=== PATIENT | male | born 1935 | race Caucasian/White ===

== ENCOUNTER 2020-10-25 14:46 | Emergency (ER) | payer OTHER ==
[2020-10-25] MEDS ORDERED: NA CHLORIDE 0.9% 500 ML ONE (16:00)
[2020-10-25 16:12] LABS: Absolute Lymphocytes (CBC) 1.6 K/uL (0.7-4.9); Basophils % 0.6 % (0-1.3); Hematocrit 37.8 % (39.6-49.0); Lymphocytes % 17.2 % (15.3-44.8); MPV 9.2 fL (7.6-11.3); RBC Red Blood Cell Count 4.39 M/uL (4.33-5.43)
[2020-10-25 16:21] LABS: Protime INR 1.03
--- NOTE | 2020-10-25 16:26 | RAD REPORT ---
EXAM DESCRIPTION: CTAbdomen Pelvis W Contrast - 10/25/2020 4:17 pm CLINICAL HISTORY: Abdominal pain. rectal bleeding COMPARISON: Thorax Wo Con dated 03/19/2020 TECHNIQUE: Biphasic CT imaging of the abdomen and pelvis was performed with 100 ml non-ionic IV cont rast. All CT scans are performed using dose optimization technique as appropriate and may include automated exposure control or mA/KV adjustment according to patient size. FINDINGS: The lung bases are clear. The liver demonstrates a few small low-density lesions, large measuring 12 mm in the left lobe, most likely representing cysts. No intra or extrahepatic biliary tree dilatation. Cholecystectomy clips. T he spleen, pancreas, adrenal glands kidneys are within normal limits. No bowel obstruction, free air, free fluid or abscess. There is prominent retention of stool througho ut the colon seen with numerous diverticula present. There is noted to be somewhat irregular thickeni ng of the ascending colon near the cecum we are multiple pericolonic lymph nodes are evident. The concetta endix is normal. Prominent sigmoid diverticulosis without diverticulitis. No evidence of significant lymphadenopathy. Moderate enlargement of the prostate gland. No suspicious bony findings. IMPRESSION: Focal short-segment area of thickening of the ascending colon near the cecum is seen wit h several surrounding pericolonic lymph nodes. Recommend followup colonoscopy for direct visualizatio n. Elsewhere, there is no evidence of acute intra-abdominal or pelvic process.
[2020-10-25 16:34] LABS: Albumin 3.5 g/dL (3.4-5.0); Bilirubin Direct 0.1 mg/dL (0-0.2); Bilirubin Total 0.5 mg/dL (0.2-1.0); Potassium 4.1 mmol/L (3.5-5.1)
--- NOTE | 2020-10-25 17:51 | EDPHYS ---
Physician Documentation [facility] Name: Carlton Nuñez III Age: 85 yrs Sex: Male : 1935 Arrival Date: 10/25/2020 Time: 14:50 Bed 5 Private MD: ED Physician Shad Shah HPI: 10/25 15:36 This 85 yrs old Male presents to ER via Ambulatory with complaints of Bloody pm1 Stools. 19:18 The patient presents to the emergency department with rectal bleeding, a small amount, pm1 bright red blood with bowel movement, on toilet paper with wiping and some in toilet water. Onset: The symptoms/episode began/occurred this morning. Abdominal pain: none is appreciated. Modifying factors: the symptoms are aggravated by bowel movement. Associated signs and symptoms: The patient has no apparent associated signs or symptoms, Pertinent negatives: chest pain, diarrhea, dizziness at rest, dizziness when standing, shortness of breath, vomiting. The patient has experienced similar episodes in the past, multiple times, Patient reports that he occasionally has bright red blood on toilet paper and bowel movement that resolves by the second bowel movement. Today he had two bowel movements with bright red blood on the toilet paper and some in the toilet water. He has a history of hemorrhoids. The patient has not recently seen a physician. Historical: - Allergies: 14:56 No Known Allergies; ll1 - PMHx: 14:56 enlarged prostate; ll1 - PSHx: 14:56 L upper lung lobectomy; ll1 - Immunization history:: Flu vaccine is up to date. - Social history:: Smoking status: Patient/guardian denies using tobacco, the patient reports quitting approximately 45 years ago. ROS: 19:22 Constitutional: Negative for fever, chills, and weight loss, Cardiovascular: Negative pm1 for chest pain, palpitations, and edema, Respiratory: Negative for shortness of breath, cough, wheezing, and pleuritic chest pain. 19:22 Back: Negative for injury and pain, : Negative for injury, bleeding, discharge, and swelling, MS/Extremity: Negative for injury and deformity, Skin: Negative for injury, rash, and discoloration, Neuro: Negative for headache, weakness, numbness, tingling, and seizure. 19:22 Abdomen/GI: Positive for rectal bleeding, Negative for abdominal pain, nausea, vomiting, and diarrhea, constipation, rectal pain. Exam: 19:22 Constitutional: This is a well developed, well nourished patient who is awake, alert, pm1 and in no acute distress. Head/Face: Normocephalic, atraumatic. 19:22 Back: No spinal tenderness. No costovertebral tenderness. Full range of motion. Skin: Warm, dry with normal turgor. Normal color with no rashes, no lesions, and no evidence of cellulitis. MS/ Extremity: Pulses equal, no cyanosis. Neurovascular intact. Full, normal range of motion. 19:22 Cardiovascular: Exam negative for acute changes, Rate: normal, Rhythm: regular, Pulses: no pulse deficits are appreciated, Edema: is not appreciated. 19:22 Respiratory: Exam negative for acute changes, respiratory distress, shortness of breath. 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 19:22 Neuro: Exam negative for acute changes, Orientation: is normal, Mentation: is normal, Motor: is normal, moves all fours. Vital Signs: 14:56 BP 164 / 96; Pulse 91; Resp 17; Temp 98.8; Pulse Ox 100% ; Weight 80.74 kg; Height 6 ll1 ft. 0 in. (182.88 cm); Pain 0/10; 16:01 BP 131 / 95; Pulse 81; Resp 16; Pulse Ox 99% on R/A; sv 16:43 BP 138 / 92; Pulse 73; Resp 16; Pulse Ox 98% on R/A; sv 17:25 BP 139 / 98; Pulse 74; Resp 16; Pulse Ox 100% ; sv 14:56 Body Mass Index 24.14 (80.74 kg, 182.88 cm) ll1 MDM: 15:00 Patient medically screened. pm1 17:34 Data reviewed: vital signs. Data interpreted: Pulse oximetry: on room air is 100 %. pm1 Interpretation: normal. 17:34 Counseling: I had a detailed discussion with the patient and/or guardian regarding: the pm1 historical points, exam findings, and any diagnostic results supporting the discharge/admit diagnosis, lab results, radiology results, the need for outpatient follow up, a porter bath, colorectal surgeon, . 17:34 ED course: Patient reports baseline Hgb and Hct and the that findings on CT at the pm1 cecum are expected. CT findings were first found on a CT about 5 years ago and he has seen GI and oncology. He has had 3 colonoscopies. According to the patient, GI - Dr. Greer, did not see any changes to the colon and did not feel that it is necessary to due any further colonoscopies unless oncology wanted to look at another area. Patient agrees with assessment and plan. Plan is to follow up with GI and blood with wiping and on his stool was likely due to hemorrhoids. Patient has had bleeding like this in the past that resolved with the next bowel movment. He presented today because there was still some blood present with the next BM. Percy treated his hemorrhoids in the past. 10/25 15:35 Order name: Basic Metabolic Panel pm1 10/25 15:35 Order name: CBC with Diff pm1 10/25 15:35 Order name: Hepatic Function pm10/25 15:35 Order name: Lipase pm1 10/25 15:35 Order name: PT-INR pm1 10/25 15:35 Order name: Ptt, Activated; Complete Time: 16:26 pm1 10/25 15:35 Order name: CT Abd/Pelvis - IV Contrast Only; Complete Time: 16:32 pm1 10/25 15:36 Order name: Basic Metabolic Panel; Complete Time: 16:39 EDMS 10/25 15:36 Order name: CBC with Automated Diff; Complete Time: 16:21 EDMS 10/25 15:36 Order name: Liver (Hepatic) Function; Complete Time: 16:39 EDMS 10/25 15:36 Order name: Lipase; Complete Time: 16:39 EDMS 10/25 15:36 Order name: Protime (+INR); Complete Time: 16:26 EDMS 10/25 16:10 Order name: CREATININE WHOLE BLOOD; Complete Time: 16:21 EDMS 10/25 15:35 Order name: IV Saline Lock; Complete Time: 15:57 pm1 10/25 15:35 Order name: Labs collected and sent; Complete Time: 15:57 pm1 Administered Medications: 16:00 Drug: NS 0.9% 500 ml Route: IV; Rate: bolus; Site: right forearm; sv 16:30 Follow up: Response: No adverse reaction; IV Status: Completed infusion; IV Intake: sv 500ml Disposition: 10/26 14:39 Co-signature as Attending Physician, Shad Shah MD I agree with the assessment and jazmin plan of care. Disposition: 10/25/20 17:50 Discharged to Home. Impression: Hemorrhoids, Rectal bleeding. - Condition is Stable. - Discharge Instructions: Hemorrhoids, Rectal Bleeding. - Prescriptions for Colace 100 mg Oral Tablet - take 1 tablet by ORAL route every 12 hours; 14 tablet. Anusol- HC 2.5 % Rectal Cream - Apply to affected area 1 application by TOPICAL route every 8 hours As needed; 30 gram. - Medication Reconciliation Form, Thank You Letter, Antibiotic Education, Prescription Opioid Use, Work release form form. - Follow up: Emergency Department; When: As needed; Reason: Worsening of condition. Follow up: Private Physician; When: 2 - 3 days; Reason: Recheck today's complaints, Continuance of care, Re-evaluation by your physician. - Problem is new. - Symptoms have improved. Signatures: Dispatcher [employer] Lindsey Jaimes RN RN sv Anderson, Corey, MD MD cha Marinas, Patrick, PANEL MONITOR PANEL MONITOR pm1 Katelyn Garza RN RN ll1 Corrections: (The following items were deleted from the chart) 10/25 17:51 17:50 10/25/2020 17:50 Discharged to Home. Impression: Hemorrhoids. Condition is pm1 Stable. Forms are Medication Reconciliation Form, Thank You Letter, Antibiotic Education, Prescription Opioid Use. Follow up: Emergency Department; When: As needed; Reason: Worsening of condition. Follow up: Private Physician; When: 2 - 3 days; Reason: Recheck today's complaints, Continuance of care, Re-evaluation by your physician. Problem is new. Symptoms have improved. pm1 17:59 17:51 10/25/2020 17:50 Discharged to Home. Impression: Hemorrhoids; Rectal bleeding. sv Condition is Stable. Forms are Medication Reconciliation Form, Thank You Letter, Antibiotic Education, Prescription Opioid Use. Follow up: Emergency Department; When: As needed; Reason: Worsening of condition. Follow up: Private Physician; When: 2 - 3 days; Reason: Recheck today's complaints, Continuance of care, Re-evaluation by your physician. Problem is new. Symptoms have improved. pm1
--- NOTE | 2020-10-25 17:51 | ER ---
Nurse's Notes [facility] Name: Carlton Nuñez III Age: 85 yrs Sex: Male : 1935 Arrival Date: 10/25/2020 Time: 14:50 Bed 5 Private MD: Diagnosis: Hemorrhoids;Rectal bleeding Presentation: 10/25 14:56 Chief complaint: Patient states: Bright red blood in stool this am x 2. + passing gas. ll1 No pain, no fever. Coronavirus screen: Client denies travel out of the [place] in the last 14 days. At this time, the client does not indicate any symptoms associated with coronavirus-19. Ebola Screen: Patient denies travel to an Ebola-affected area in the 21 days before illness onset. Initial Sepsis Screen: Does the patient meet any 2 criteria? HR > 90 bpm. No. Patient's initial sepsis screen is negative. Does the patient have a suspected source of infection? Yes: Other: bloody stool. Risk Assessment: Do you want to hurt yourself or someone else? Patient reports no desire to harm self or others. Onset of symptoms was October 25, 2020. 14:56 Method Of Arrival: Ambulatory ll1 14:56 Acuity: ATUL 3 ll1 Historical: - Allergies: 14:56 No Known Allergies; ll1 - PMHx: 14:56 enlarged prostate; ll1 - PSHx: 14:56 L upper lung lobectomy; ll1 - Immunization history:: Flu vaccine is up to date. - Social history:: Smoking status: Patient/guardian denies using tobacco, the patient reports quitting approximately 45 years ago. Screenin:00 Abuse screen: Denies threats or abuse. Denies injuries from another. Nutritional sv screening: No deficits noted. Tuberculosis screening: No symptoms or risk factors identified. Fall Risk None identified. Assessment: 15:55 General: Appears in no apparent distress. comfortable, well developed, Behavior is sv calm, cooperative, appropriate for age. Pain: Denies pain. Neuro: Level of Consciousness is awake, alert, obeys commands, Oriented to person, place, time, situation, Moves all extremities. Full function Gait is steady. Respiratory: Respiratory effort is even, unlabored, Respiratory pattern is regular, symmetrical. GI: Reports bloody stool. Derm: Skin is intact, Skin is pink, warm \T\ dry. 16:44 Reassessment: Patient appears in no apparent distress at this time. No changes from sv previously documented assessment. Patient and/or family updated on plan of care and expected duration. Pain level reassessed. Patient is alert, oriented x 3, equal unlabored respirations, skin warm/dry/pink. 17:58 Reassessment: Patient appears in no apparent distress at this time. Patient and/or sv family updated on plan of care and expected duration. Pain level reassessed. Patient is alert, oriented x 3, equal unlabored respirations, skin warm/dry/pink. Vital Signs: 14:56 BP 164 / 96; Pulse 91; Resp 17; Temp 98.8; Pulse Ox 100% ; Weight 80.74 kg; Height 6 ll1 ft. 0 in. (182.88 cm); Pain 0/10; 16:01 BP 131 / 95; Pulse 81; Resp 16; Pulse Ox 99% on R/A; sv 16:43 BP 138 / 92; Pulse 73; Resp 16; Pulse Ox 98% on R/A; sv 17:25 BP 139 / 98; Pulse 74; Resp 16; Pulse Ox 100% ; sv 14:56 Body Mass Index 24.14 (80.74 kg, 182.88 cm) ll1 ED Course: 14:50 Patient arrived in ED. ds1 14:54 Arm band placed on Patient placed in an exam room, on a stretcher. ll1 14:57 Triage completed. ll1 14:59 Lindsey Quispe RN is Primary Nurse. sv 14:59 Matthew Roche NP is PHCP. pm1 14:59 Shad Shah MD is Attending Physician. pm1 15:00 Patient has correct armband on for positive identification. Bed in low position. Call sv light in reach. Door closed. Head of bed elevated. 15:32 Nurse Practitioner and/or Physician Associate Professor Of Violin to see patient. 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 sv 15:49 Initial lab(s) drawn, by me, sent to lab. Inserted saline lock: 20 gauge in right dh3 forearm, using aseptic technique. Blood collected. 16:01 PT-INR Sent. sv 16:01 Basic Metabolic Panel Sent. sv 16:01 CBC with Diff Sent. sv 16:01 Hepatic Function Sent. sv 16:01 Lipase Sent. sv 16:16 CT Abd/Pelvis - IV Contrast Only In Process Unspecified. EDMS 17:58 IV discontinued, intact, bleeding controlled, No redness/swelling at site. Pressure sv dressing applied. Administered Medications: 16:00 Drug: NS 0.9% 500 ml Route: IV; Rate: bolus; Site: right forearm; sv 16:30 Follow up: Response: No adverse reaction; IV Status: Completed infusion; IV Intake: sv 500ml Intake: 16:30 IV: 500ml; Total: 500ml. sv Outcome: 17:50 Discharge ordered by MD. pm1 17:58 Discharged to home ambulatory. sv 17:58 Condition: stable 17:58 Discharge instructions given to patient, Instructed on discharge instructions, follow up and referral plans. medication usage, Demonstrated understanding of instructions, follow-up care, medications, Prescriptions given X 2. 17:59 Patient left the ED. sv Signatures: Dispatcher [employer] EDMS Lindsey Quispe RN RN Sheila Lokchart ds1 Matthew Roche, MASTER PIPE OUT WORKER pm1 Dotty Lin 3 Katelyn Garza RN RN ll1
[2020-10-25 18:07] VITALS: TEMP 98.8
[2020-10-25 18:11] VITALS: BP 139/98; O2SAT 100
== END 2020-10-25 17:59 | disposition home or self-care (01) ==
LOC: ER 14:46
DX: K64.9 Unspecified hemorrhoids (principal); N40.0 Benign prostatic hyperplasia without lower urinary tract symptoms
CPT/HCPCS: 85025; 80048; 36415; 85610; 82565; 80076; 85730; 83690; 74177; 99284; Q9967; J7040

== ENCOUNTER 2021-08-31 09:35 | Emergency (ER) | payer OTHER ==
--- OUTSIDE RECORDS SUMMARY | 2021-08-31 09:39 | XMS REPORT | Clinical Summary ---
:1935 Author Organization [facility] MD [facility] Address [address] [place] [address] Care Team Providers Name Role Phone Emre Solomon MD Primary Care Provider Kenny Greer MD Unavailable Ming Greer MD Unavailable Naty Little MD Unavailable MD Juanito Unavailable Coy Patel NP Unavailable Allergies No known active allergies Medications Medication Sig Dispensed Refills Start Date End Date Status CYANOCOBALAMIN/FOLIC Take 1 tablet by 0 Active ACID (VITAMIN mouth daily. [id number] ACID ORAL) multivitamin capsule Take 1 capsule by 0 Active mouth daily. ascorbic acid, Take 1,000 mg/mL by 0 Active vitamin C, (vitamin mouth daily. C) 1000 mg tablet [id number] Take 1 capsule by 0 Active h oil-D3 (VITAMIN-D mouth daily. + OMEGA-3) 350 mg-400 mg- 1,000 unit cap tamsulosin (FLOMAX) Take 1 capsule by 3 11/08/2016 Active 0.4 mg 24 hr capsule mouth daily. finasteride Take 5 mg by mouth 0 Active (PROSCAR) 5 mg daily. tablet cholecalciferol, 0 09/12/2014 Ac tive vitamin D3, (D3-2000 ORAL) prednisoLONE acetate INSTILL 1 DROP IN 0 03/12/2020 Active (PRED FORTE) 1% LEFT EYE TWICE A DAY ophthalmic FOR ONE WEEK, THEN suspension DAILY FOR 1 WEEK folic acid (FOLVITE) Take 1 mg by mouth 0 Active 1 mg tablet daily. turmeric (CURCUMIN by miscellaneous 0 Active MISC) route daily. 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 His radiographic imaging demonstrates st able bilateral lung nodules and nodular opacities. A LLL groundglass nodule is also stable and too small for biopsy. We will continue [facility] with a follow-up in 1 year's time with a low-dose CT of the chest. 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 He is very low risk for significant disease change with his indolent histology and no evidence radiographically on any prior scans of lymphoma . Recommend he have another chest abdome n pelvis CT in 12 months. Encounters Date Type Specialty Care Team Description 04/06/2021 Office Visit Lymphoma and Emre Solomon Marginal zone Myeloma lymphoma (Prima ry Dx) 04/06/2021 Hospital Encounter Lab José Novak Margin al zone PA lymphoma 04/06/2021 Travel 03/31/2021 Orders Only Lymphoma and José Novak Marginal zon e Myeloma PA lymphoma (Prima ry Dx) 03/19/2021 Telemedicine Lymphoma and Emre Solomon Marginal zone Myeloma lymphoma 03/18/2021 Hospital Encounter Radiology José Novak Margin al zone PA lymphoma 03/18/2021 Hospital Encounter Lab José Novak Margin al zone lymphoma; PA Adenocarcinoma of upper lobe of left lung 03/18/2021 Travel 03/13/2021 Orders Only Thoracic Medicine Novegil, Adenocarci noma of Ashly Y upper lobe of l eft lung (Primary D x) 01/08/2021 Telemedicine Lymphoma and Emre Solomon Marginal zone Myeloma lymphoma 01/06/2021 Orders Only Lymphoma and [place], Malori, Marginal zon e Myeloma RN lymphoma (Prima ry Dx) 12/25/2020 Lab Requisition Ian Gamez MD Hao, Suyang, MD 12/23/2020 Telemedicine Thoracic Surgery Jose Fuchs MD Adenocar cinoma of upper lobe of l eft lung (Primary D x) 12/20/2020 Hospital Encounter Radiology Leatha Bustamante, Adenoca rcinoma of PA upper lobe of l eft lung 12/20/2020 Travel 12/15/2020 Orders Only Lymphoma and José Novak, Marginal zon e Myeloma PA lymphoma (Prima ry Dx) 11/25/2020 Ancillary Procedure Radiology José Novak Margi nal zone PA lymphoma 11/25/2020 Orders Only Lymphoma and [place], Malori, Marginal zon e Myeloma RN lymphoma (Prima ry Dx) 11/19/2020 Orders Only Infectious [place], SARS-CoV-2 Diseases MD Elida vaccination 11/12/2020 Orders Only Thoracic Surgery Leatha Bustamante, Adenocarc inoma of PA upper lobe of l eft lung (Primary D x) after 08/31/2020 Immunizations Name Administration Dates Next Due Moderna SARS-CoV-2 Vaccination 10/19/2020, 09/21/2020 Medical History Medical History Date Comments Cancer Social History Tobacco Use Types Packs/Day Years Used Date Former Smoker Smokeless Tobacco: Never Used Alcohol Use Standard Drinks/Week Comments No 0 (1 standard drink = 0.6 oz pure alcoho l) Sex Assigned at Date Recorded Male 10/29/2019 5:00 PM [facility] Obstetrics History Last Filed Vital Signs Vital Sign Reading Time Taken Comments Blood Pressure 146/90 04/06/2021 11:59 AM CDT Pulse 74 04/06/2021 11:59 AM CDT Temperature 36.7 C (98.1 F) 04/06/2021 11:59 AM CDT Respiratory Rate 16 04/06/2021 11:59 AM CDT Oxygen Saturation 98% 04/06/2021 11:59 AM CDT Inhaled Oxygen Concentration - - Weight 80.2 kg (176 lb 12.9 oz) 04/06/2021 11:59 AM CDT Height - - Body Mass Index 25.17 12/02/2016 9:48 AM CDT Plan of Treatment Date Type Specialty Care Team Description 12/11/2021 Appointment Radiology Leatha Bustamante P A [address] [place], [place] [address] (Wo rk) 12/11/2021 Office Visit Thoracic Surgery Leatha Bustamante PA [address] [place], [place] [address] (Wo rk) Health Maintenance Due Date Last Done Comments COVID-19 Vaccination (3 - Moderna risk 11/16/2020 1, 09/21/2020 4-dose series) Implants Implanted Type Area Network Technology Instructor Device Shelf Model / Identifier Expiration Serial / Date Lot Tube Chest Straight 28fr - [id number] Implant Left: [employer] 10/05/2019 [id number] / Implanted: Qty: 1 on 12/20/2016 by Jose Fuchs MD at [facility] Chest [facility] / [id number] Procedures Procedure Name Priority Date/Time Associated Diagnosis Comme nts .GLOMERULAR FILTRATION Routine 04/06/2021 10:41 Marginal zone Results for this RATE AM CDT lymphoma procedure are i n the results section. SERUM CREATININE Routine 04/06/2021 10:41 Marginal zone Result s for this AM CDT lymphoma procedure are i n the results section. MANUAL DIFFERENTIAL Routine 04/06/2021 10:41 Marginal zone Res ults for this AM CDT lymphoma procedure are i n the results section. Results CBC Routine 04/06/2021 10:41 Marginal zone Results fo r this AM CDT lymphoma procedure are i n the results section. ELECTROLYTE PANEL Routine 04/06/2021 10:41 Marginal zone Resul ts for this AM CDT lymphoma procedure are i n the results section. ASPARTATE Routine 04/06/2021 10:41 Marginal zone Results fo r this AMINOTRANSFERASE AM CDT lymphoma procedure a re in the results section. MAGNESIUM LEVEL Routine 04/06/2021 10:41 Marginal zone Results for this AM CDT lymphoma procedure are i n the results section. ALANINE Routine 04/06/2021 10:41 Marginal zone Results fo r this AMINOTRANSFERASE AM CDT lymphoma procedure a re in the results section. LACTATE DEHYDROGENASE Routine 04/06/2021 10:41 Marginal zone R esults for this AM CDT lymphoma procedure are i n the results section. ALKALINE PHOSPHATASE Routine 04/06/2021 10:41 Marginal zone Re sults for this AM CDT lymphoma procedure are i n the results section. FRACTIONATED BILIRUBIN Routine 04/06/2021 10:41 Marginal zone Results for this AM CDT lymphoma procedure are i n the results section. URIC ACID Routine 04/06/2021 10:41 Marginal zone Results fo r this AM CDT lymphoma procedure are i n the results section. SERUM CREATININE Routine 04/06/2021 10:41 Marginal zone AM CDT lymphoma BLOOD UREA NITROGEN Routine 04/06/2021 10:41 Marginal zone Res ults for this AM CDT lymphoma procedure are i n the results section. GLUCOSE, RANDOM Routine 04/06/2021 10:41 Marginal zone Results for this AM CDT lymphoma procedure are i n the results section. PHOSPHORUS LEVEL Routine 04/06/2021 10:41 Marginal zone Result s for this AM CDT lymphoma procedure are i n the results section. CALCIUM LEVEL TOTAL Routine 04/06/2021 10:41 Marginal zone Res ults for this AM CDT lymphoma procedure are i n the results section. ALBUMIN LEVEL Routine 04/06/2021 10:41 Marginal zone Results f or this AM CDT lymphoma procedure are i n the results section. TOTAL PROTEIN Routine 04/06/2021 10:41 Marginal zone Results f or this AM CDT lymphoma procedure are i n the results section. COMPLETE BLOOD COUNT W/ Routine 04/06/2021 10:41 Marginal zone DIFFERENTIAL AM CDT lymphoma CT CHEST ABDOMEN PELVIS Routine 03/18/2021 8:12 Marginal zone Results for this W CONTRAST LYMPHOMA AM CDT lymphoma procedur e are in the results section. CT NECK W CONTRAST Routine 03/18/2021 8:12 Marginal zone Resu lts for this LYMPHOMA AM CDT lymphoma procedure are i n the results section. .GLOMERULAR FILTRATION Routine 03/18/2021 6:41 Marginal zone Results for this RATE AM CDT lymphoma procedure are i n the results section. SERUM CREATININE Routine 03/18/2021 6:41 Marginal zone Result s for this AM CDT lymphoma procedure are i n the results section. MANUAL DIFFERENTIAL Routine 03/18/2021 6:41 Marginal zone Res ults for this AM CDT lymphoma procedure are i n the results section. Results CBC Routine 03/18/2021 6:41 Marginal zone Results fo r this AM CDT lymphoma procedure are i n the results section. RESEARCH PROTOCOL Routine 03/18/2021 6:41 Adenocarcinoma of R esults for this [id number] AM CDT upper lobe of left procedure are in lung the results section. ELECTROLYTE PANEL Routine 03/18/2021 6:41 Marginal zone Resul ts for this AM CDT lymphoma procedure are i n the results section. ASPARTATE Routine 03/18/2021 6:41 Marginal zone Results fo r this AMINOTRANSFERASE AM CDT lymphoma procedure a re in the results section. MAGNESIUM LEVEL Routine 03/18/2021 6:41 Marginal zone Results for this AM CDT lymphoma procedure are i n the results section. ALANINE Routine 03/18/2021 6:41 Marginal zone Results fo r this AMINOTRANSFERASE AM CDT lymphoma procedure a re in the results section. LACTATE DEHYDROGENASE Routine 03/18/2021 6:41 Marginal zone R esults for this AM CDT lymphoma procedure are i n the results section. ALKALINE PHOSPHATASE Routine 03/18/2021 6:41 Marginal zone Re sults for this AM CDT lymphoma procedure are i n the results section. FRACTIONATED BILIRUBIN Routine 03/18/2021 6:41 Marginal zone Results for this AM CDT lymphoma procedure are i n the results section. URIC ACID Routine 03/18/2021 6:41 Marginal zone Results fo r this AM CDT lymphoma procedure are i n the results section. SERUM CREATININE Routine 03/18/2021 6:41 Marginal zone AM CDT lymphoma BLOOD UREA NITROGEN Routine 03/18/2021 6:41 Marginal zone Res ults for this AM CDT lymphoma procedure are i n the results section. GLUCOSE, RANDOM Routine 03/18/2021 6:41 Marginal zone Results for this AM CDT lymphoma procedure are i n the results section. PHOSPHORUS LEVEL Routine 03/18/2021 6:41 Marginal zone Result s for this AM CDT lymphoma procedure are i n the results section. CALCIUM LEVEL TOTAL Routine 03/18/2021 6:41 Marginal zone Res ults for this AM CDT lymphoma procedure are i n the results section. ALBUMIN LEVEL Routine 03/18/2021 6:41 Marginal zone Results f or this AM CDT lymphoma procedure are i n the results section. TOTAL PROTEIN Routine 03/18/2021 6:41 Marginal zone Results f or this AM CDT lymphoma procedure are i n the results section. COMPLETE BLOOD COUNT W/ Routine 03/18/2021 6:41 Marginal zone DIFFERENTIAL AM CDT lymphoma CT CHEST WO CONTRAST Routine 12/20/2020 11:50 Adenocarcinoma o f Results for this AM CDT upper lobe of left procedure are in lung the results section. PATHOLOGY OUTSIDE Routine 11/17/2020 Results fo r this INTERPRETATION procedure are in the results section. OSI CT ABDOMEN AND Routine 10/25/2020 7:24 Marginal zone Resu lts for this PELVIS AM [facility] lymphoma procedure are i n the results section. after 08/31/2020 Results Glucose, Random (04/06/2021 10:41 AM CDT)Only the most recent of2 resultswithin the time period is included. Glucose Random 73 70 - 199 [facility] Comment: mg/dL DIAGNOSTIC CENTER Effective 04/07/16, the gluco se reference intervals have been updated based on [place] Diabetes [employer] guidelines (Standards of Medical Care in Diabetes 2016. Diabetes Care 2016; 39: S13-S22). Fasting blood glucose: Normal: 70-99 mg/dL Impaired fasting glucose (in creased risk for diabetes or pre-diabetes): 100- 125 mg/dL Diabetes mellitus: >/=126 mg/dL Random blood glucose: Normal: 70-199 mg/dL Note: Random glucose >100 mg/dL is assoc iated with increased risk for diabetes Specimen Blood Performing Organization Address City/[facility] Code Phon e Number [facility] DIAGNOSTIC Unless otherwise noted, [address] all lab tests performed by: Division of Pathology and Laboratory Medicine [address] [place] [address] .Serum Creatinine (04/06/2021 10:41 AM CDT)Only the most recent of2 results within the time period is included. Pathologist Sig nature Creatinine 1.01 0.67 - 1.17 mg/dL [facility] DIAGNOST IC CENTER Specimen Blood Performing Organization Address City/[facility]/ZIP [facility] [place] [place] Phon e Number [facility] DIAGNOSTIC Unless otherwise noted, [address] all lab tests performed by: Division of Pathology and Laboratory Medicine [address] [place] [address] (ABNORMAL) .CBC (04/06/2021 10:41 AM CDT)Only the most recent of2 resultswithin the time period is included. Pathologist [facility] WBC 8.7 4.0 - 11.0 [facility] K/uL DIAGNOSTIC CENTER RBC 4.61 4.50 - 6.00 [facility] M/uL DIAGNOSTIC CENTER Hgb 10.8 (L) 14.0 - 18.0 [facility] gm/dL DIAGNOSTIC CENTER Hct 35.6 (L) 40.0 - 54.0 % [facility] DIAGNOSTIC [place] MCV 77 (L) 82 - 98 fL [facility] DIAGNOSTIC [place] MCH 23.4 (L) 27.0 - 31.0 [facility] pg DIAGNOSTIC CENTER MCHC 30.3 (L) 31.0 - 36.0 [facility] gm/dL DIAGNOSTIC CENTER RDW-SD 54.3 (H) 35.1 - 46.3 [facility] DIAGNOSTIC CENTER RDW-CV 19.6 (H) 12.0 - 15.5 % [facility] Platelet count 170 140 - 440 [facility] K/uL DIAGNOSTIC CENTER MPV 10.5 (H) 4.0 - 10.4 fL [facility] INRBC 0.0 <=0.0 % [facility] Comment: DIAGNOSTIC CENTER The INRBC (instrument NRBC) value reflects the enumera tion of nucleated red blood cells contained in a 200uL samp le of whole blood analyzed by the instrument. This value may differ from the NRBC value reported in a manual differ ential, which is based on a 100 cell differential. Specimen Blood Performing Organization Address City/State/ZIP Code Phon e Number [facility] DIAGNOSTIC Unless otherwise noted, [place] [id number] CENTER all lab tests performed by: Division of Pathology and Laboratory Medicine [address] [place] [address] Glomerular Filtration Rate (04/06/2021 10:41 AM CDT)Only the most recent of2 resultswithin the time period is included. Pathologist [facility] eGFR-AA 79 >=60 [facility] Comment: mL/min/1.73 DIAGNOSTIC [place] Normal eGFR: >= 60 mL/min/1.73 m2 sq. m Note: The eGFR is calculated using the CKD-EPI equation. The eGFR declines with age. eGFR <60 mL/min/1.73 m2 is considered as "decreased". This equation should only be used for patients 18 and older. According to the National dney Foundation's Kidney Disease Outcome Quality Initiative (KDOQI) classification and 2012 Kidney Disease Improving Global Outcomes (KDIGO) Clinical Practice Guideline, the stage of CKD should be categorized based on estimated GFR. Stage Description GFR mL/min/1.73 m2 1 Normal or high GFR >=90 2 Mildly decreased GFR 60-89 3a Mildly to moderately decreased GFR 45-59 3b Moderately to severely decreased GFR 30-44 4 Severely decreased GFR 15-29 5 Kidney failure <15 eGFR-LESLIE 68 >=60 [facility] Comment: mL/min/1.73 DIAGNOSTIC CENTER Normal eGFR: >= 60 mL/min/1.73 m2 sq. m Note: The eGFR is calculated using the CKD-EPI equation. The eGFR declines with age. eGFR <60 mL/min/1.73 m2 is considered as "decreased". This equation should only be used for patients 18 and older. According to the National dney Foundation's Kidney Disease Outcome Quality Initiative (KDOQI) classification and 2012 Kidney Disease Improving Global Outcomes (KDIGO) Clinical Practice Guideline, the stage of CKD should be categorized based on estimated GFR. Stage Description GFR mL/min/1.73 m2 1 Normal or high GFR >=90 2 Mildly decreased GFR 60-89 3a Mildly to moderately decreased GFR 45-59 3b Moderately to severely decreased GFR 30-44 4 Severely decreased GFR 15-29 5 Kidney failure <15 Specimen Blood Performing Organization Address City/State/ZIP Code Phon e Number [facility] DIAGNOSTIC Unless otherwise noted, [place], [place] [address] CENTER all lab tests performed by: Division of Pathology and Laboratory Medicine [facility] Fractionated Bilirubin (04/06/2021 10:41 AM CDT)Only the most recent of2 results within the time period is included. Bili Total 0.5 <=1.2 mg/dL [facility] Comment: DIAGNOSTIC CENTER Indocyanine Green (ICG) may cause falsely elevated bilirubin results. Total and direct bilirubin must not be measured from samples containing indocyanine green. False elevation of total kervin irubin can be seen in patients with IgG concentrations above 28 g/L. Bili Direct <0.2Comment: <=0.3 mg/dL [facility] Indocyanine Green DIAGNOSTIC CENTER (ICG) may cause falsely elevated bilirubin results. Total and direct bilirubin must not be measured from samples containing indocyanine green. Bili Indirect See NoteComment: 0.0 - 0.9 [facility] Unable to calculate mg/dL DIAGNOSTIC CENTER Indirect Bilirubin result due to some parameters are outside reportable range Specimen Blood Performing Organization Address City/[facility] Phon e Number [facility] DIAGNOSTIC Unless otherwise noted, [address] all lab tests performed by: Division of Pathology and Laboratory Medicine [facility] (ABNORMAL) Differential (04/06/2021 10:41 AM CDT)Only the most recent of2 resultswithin the time period is included. Neutrophil % 64.5 42.0 - 66.0 % [facility] Lymphocyte % 21.9 (L) 24.0 - 44.0 % [facility] Monocyte % 10.9 (H) 2.0 - 7.0 % [facility] Eosinophil % 1.5 1.0 - 4.0 % [facility] Basophil % 0.7 0.0 - 1.0 % [facility] IGRE % 0.5 (H)Comment: 0.0 - 0.4 % [facility] IGRE % count DIAGNOSTIC CENTER includes Metamyelocytes, Myelocytes, and Promyelocytes. Neutrophil Abs 5.59 1.70 - 7.30 [facility] K/ DIAGNOSTIC CENTER Lymphocyte Abs 1.90 1.00 - 4.80 [facility] Monocyte Abs 0.94 (H) 0.08 - 0.70 [facility] DIAGNOSTIC [place] Eosinophil Abs 0.13 0.04 - 0.40 [facility] Basophil Abs 0.06 0.00 - 0.10 [facility] IG Abs 0.04 0.00 - 0.04 [facility] DIAGNOSTIC CENTER Specimen Blood Performing Organization Address [facility] Phon e Number [facility] DIAGNOSTIC Unless otherwise noted, [address] all lab tests performed by: Division of Pathology and Laboratory Medicine [address] [place] [address] Uric Acid (04/06/2021 10:41 AM CDT)Only the most recent of2 resultswithin the time period is included. Pathologist Sig nature Uric Acid 5.0 3.4 - 7.0 mg/dL [facility] Specimen Blood Performing Organization Address City/[facility]/ZIP [facility] [place] [place] Phon e Number [facility] DIAGNOSTIC Unless otherwise noted, [address] all lab tests performed by: Division of Pathology and Laboratory Medicine [address] BUN (04/06/2021 10:41 AM CDT)Only the most recent of2 resultswithin the time period is included. Pathologist Sig nature BUN 13 6 - 23 mg/dL [facility] DIAGNOSTIC CE NTER Specimen Blood Performing Organization Address [facility] Phon e Number [facility] DIAGNOSTIC Unless otherwise noted, [address] all lab tests performed by: Division of Pathology and Laboratory Medicine [address] Alanine Aminotransferase (04/06/2021 10:41 AM CDT)Only the most recent of2 resultswithin the time period is included. Pathologist Sig nature ALT 10 <=41 U/L [facility] DIAGNOSTIC CE NTER Specimen Blood Performing Organization Address [facility] Phon e Number [facility] DIAGNOSTIC Unless otherwise noted, [address] all lab tests performed by: Division of Pathology and Laboratory Medicine [address] Aspartate Aminotransferase (04/06/2021 10:41 AM CDT)Only the most recent of2 resultswithin the time period is included. Pathologist Sig nature AST 15 <=40 U/L [facility] DIAGNOSTIC CE NTER Specimen Blood Performing Organization Address [facility] Phon e Number [facility] DIAGNOSTIC Unless otherwise noted, [address] all lab tests performed by: Division of Pathology and Laboratory Medicine [address] Total Protein (04/06/2021 10:41 AM CDT)Only the most recent of2 resultswithin the time period is included. Pathologist Sig nature Total Protein 6.6 6.4 - 8.3 g/dL [facility] Specimen Blood Performing Organization Address City/[facility]/ZIP [place] [facility] [place] [place] Phon e Number [facility] DIAGNOSTIC Unless otherwise noted, [address] all lab tests performed by: Division of Pathology and Laboratory Medicine [address] Phosphorus Level (04/06/2021 10:41 AM CDT)Only the most recent of2 resultswithin the time period is included. Pathologist Sig nature Phosphorus 2.7 2.5 - 4.5 mg/dL [facility] Specimen Blood Performing Organization Address City/[facility]/ZIP [facility] [place] [place] Phon e Number [facility] DIAGNOSTIC Unless otherwise noted, [address] all lab tests performed by: Division of Pathology and Laboratory Medicine [address] Alkaline Phosphatase (04/06/2021 10:41 AM CDT)Only the most recent of2 results within the time period is included. Pathologist Sig nature Alk Phos 77 40 - 129 U/L [facility] DIAGNOSTIC CE NTER Specimen Blood Performing Organization Address [facility] Phon e Number [facility] DIAGNOSTIC Unless otherwise noted, [address] all lab tests performed by: Division of Pathology and Laboratory Medicine [address] Magnesium Level (04/06/2021 10:41 AM CDT)Only the most recent of2 resultswithin the time period is included. Pathologist Sig nature Magnesium 2.3 1.6 - 2.6 mg/dL [facility] [place] Specimen Blood Performing Organization Address [facility] Phon e Number [facility] Unless otherwise noted, [address] all lab tests performed by: Division of Pathology and Laboratory Medicine [address] LDH (04/06/2021 10:41 AM CDT)Only the most recent of2 resultswithin the time period is included. LDH 196Comment: Results 135 - 225 U/L [facility] greater than 1651 U/L DI[facility]NO[facility] [place] may not be reliable due to matrix effect with extended dilution as it exceeds the rolling up machine operator s recommended limit. Caution should be exercised when interpreting such values and done in conjunction with clinical context. Specimen Blood Performing Organization Address [facility] Phon e Number [facility] Unless otherwise noted, [address] all lab tests performed by: Division of Pathology and Laboratory Medicine [address] Calcium Level (04/06/2021 10:41 AM CDT)Only the most recent of2 resultswithin the time period is included. Pathologist Sig nature Calcium Lvl 9.1 8.4 - 10.2 mg/dL [facility] Specimen Blood Performing Organization Address City/[facility]/ZIP Code Phon e Number [facility] Unless otherwise noted, [address] all lab tests performed by: Division of Pathology and Laboratory Medicine [address] [place] [address] Albumin Level (04/06/2021 10:41 AM CDT)Only the most recent of2 resultswithin the time period is included. Pathologist Sig nature Albumin Lvl 4.2 3.5 - 5.2 gm/dL [facility] Specimen Blood Performing Organization Address City/[facility]/ZIP [facility] [place] [place] Phon e Number [facility] Unless otherwise noted, [address] all lab tests performed by: Division of Pathology and Laboratory Medicine [address] [place] [address] Electrolyte Panel (04/06/2021 10:41 AM CDT)Only the most recent of2 results within the time period is included. Pathologist Sig nature Sodium Lvl 140 136 - 145 mEq/L [facility] [place] Potassium Lvl 4.2 3.5 - 5.1 mEq/L [facility] Chloride 106 98 - 107 mEq/L [facility] [place] CO2 27 22 - 29 mEq/L [facility] [place] Anion Gap 7 4 - 14 mEq/L [facility] [place] Specimen Blood Performing Organization Address City/[facility]/ZIP [facility] [place] [place] Phon e Number [facility] Unless otherwise noted, [address] all lab tests performed by: Division of Pathology and Laboratory Medicine [facility] CT Chest Abdomen Pelvis with Contrast Lymphoma (03/18/2021 8:12 AM CDT) Specimen Impressions [id number] - 03/18/2021 11:20 AM CDT No evidence for active lymphoma in the c hest, abdomen or pelvis. Narrative [id number] - 03/18/2021 11:20 AM CDT FULL RESULT: Examination: CT CHEST ABDOMEN PELVIS W C ONTRAST LYMPHOMA, 03/18/2021 8:12 AM Clinical History: Marginal zone lymphoma Indication: evaluate for lymphoma recurr ence Comparison: Unenhanced CT study of the c hest December 20, 2020; outside CT study of the abdomen pelvis October 25, 2020 Technique: CT of the chest, abdomen, and pelvis was performed with intravenous contrast. Findings: CHEST: No new lung nodules or pleural effusions are present. Randomly scattered 3 mm micronodules are present and marked on the images in series 303. No axillary, mediastinal or hilar adenop athy is seen. The ascending aorta is stable and border line aneurysmal measuring 42 mm on image 68. Stable multilevel degenerative-like bone changes are present. ABDOMEN and PELVIS: No new liver lesions or biliary ductal d ilation are present. The scattered small low dense foci in th e liver are stable and consistent with cysts. The gallbladder has been resected. The spleen, pancreas and adrenal glands appear normal. The kidneys demonstrate function without mass or hydronephrosis. No adenopathy or ascites are seen in the abdomen or pelvis. The small right ileocolic lymph nodes ar e stable without a measurable mass in the terminal ileum, cecum or ascending colon. Diverticulosis present with predominance in the sigmoid colon. Stable multilevel degenerative-like bone changes are present. Procedure Note Luke Donahue MD - 03/18/2021 FULL RESULT: Examination: CT CHEST ABDOMEN PELVIS W C ONTRAST LYMPHOMA, 03/18/2021 8:12 AM Clinical History: Marginal zone lymphoma Indication: evaluate for lymphoma recurr ence Comparison: Unenhanced CT study of the c hest December 20, 2020; outside CT study of the abdomen pelvis October 25, 2020 Technique: CT of the chest, abdomen, and pelvis was performed with intravenous contrast. Findings: CHEST: No new lung nodules or pleural effusions are present. Randomly scattered 3 mm micronodules are present and marked on the images in series 303. No axillary, mediastinal or hilar adenop athy is seen. The ascending aorta is stable and border line aneurysmal measuring 42 mm on image 68. Stable multilevel degenerative-like bone changes are present. ABDOMEN and PELVIS: No new liver lesions or biliary ductal d ilation are present. The scattered small low dense foci in th e liver are stable and consistent with cysts. The gallbladder has been resected. The spleen, pancreas and adrenal glands appear normal. The kidneys demonstrate function without mass or hydronephrosis. No adenopathy or ascites are seen in the abdomen or pelvis. The small right ileocolic lymph nodes ar e stable without a measurable mass in the terminal ileum, cecum or ascending colon. Diverticulosis present with predominance in the sigmoid colon. Stable multilevel degenerative-like bone changes are present. IMPRESSION: No evidence for active lymphoma in the c hest, abdomen or pelvis. Performing Organization Address City/State/ZIP Code Phon e Number [id number] CT Neck with Contrast Lymphoma (03/18/2021 8:12 AM CDT) Specimen Impressions [id number] - 03/19/2021 10:04 PM CDT No progressive cervical adenopathy to suggest active lymphoma in the neck. Narrative [id number] - 03/19/2021 10:04 PM CDT FULL RESULT: Examination: CT NECK W CONTRAST LYMPHOMA on 03/18/2021 8:12 AM Clinical History: Marginal zone lymphoma Indication: evaluate for lymphoma recurr ence Comparison: CT neck 10/31/2018. Technique: Axial CT images were acquired from the aortic arch to the orbits with contrast. Sagittal and coronal reformatted images were generated. Findings: No cervical adenopathy is noted. No CT c onspicuous submandibular or parotid masses seen. No abnormal enhancement along the mucosa of the upper aerodigestive tract. Included brain parenchyma orbits and p aranasal sinuses are unremarkable. No de structive osseous lesion is seen. Procedure Note Zayda Alexander MD - 03/19/2021 FULL RESULT: Examination: CT NECK W CONTRAST LYMPHOMA on 03/18/2021 8:12 AM Clinical History: Marginal zone lymphoma Indication: evaluate for lymphoma recurr ence Comparison: CT neck 10/31/2018. Technique: Axial CT images were acquired from the aortic arch to the orbits with contrast. Sagittal and coronal reformatted images were generated. Findings: No cervical adenopathy is noted. No CT c onspicuous submandibular or parotid masses seen. No abnormal enhancement along the mucosa of the upper aerodigestive tract. Included brain parenchyma orbits and paranasal sinuses are unremarkable. No destructive osseous lesion is seen. IMPRESSION: No progressive cervical adenopathy to munoz ggest active lymphoma in the neck. Performing Organization Address City/[facility] Code Phon e Number [id number] Research Protocol [id number] (03/18/2021 6:41 AM CDT) Pathologist Sig nature Research Prot [id number] [facility] R Specimen Blood Narrative [facility] - 9:36 AM CDT Schedule during a standard lab appointment. Please contact Ancelmo Fair \\Manjit\\ Russel Miller for blood pickup Performing Organization Address City/State/ZIP Code Phon e Number [facility] Unless otherwise noted, [place] [address] CENTER all lab tests performed by: Division of Pathology and Laboratory Medicine [address] [facility] [address] Chest without Contrast (12/20/2020 11:50 AM CDT) Specimen Impressions [id number] - 12/20/2020 12:30 PM CDT 1. Postsurgical and chronic changes as above grossly stable. 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 FINDINGS: 1. Partially visualized nonenhanced lo wer neck/thyroid with no acute findings. 2. Ascending aorta mildly aneurysmal 4 2 mm. No pericardial effusion. Mild calcifications left anterior descending. 3. Small subcentimeter mediastinal lym ph nodes, not enlarged by size criteria, with hilar regions suboptimally evaluated given lack of IV contrast. 4. Left upper lobe segmentectomy and r esidual postsurgical scarring, mild to moderate biapical scarring, and scattered bilateral nodules, nodular densities, and linear densities not appreciably change d. 13 mm groundglass nodule left lower l obes series 4 image 41 which could represent scarring or preinvasive adenocarcinoma, stable, with continued CT follow-up recommended. 5. Limited nonenhanced upper abdomen w ith no acute findings. Cholecystectomy changes and hypodensity left hepatic lobe, statistically cysts, stable. 6. Visualized nonenhanced soft tissues with no acute findings. 7. Moderate degenerative changes spine . 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 FINDINGS: 1. Partially visualized nonenhanced low er neck/thyroid with no acute findings. 2. Ascending aorta mildly aneurysmal 42 mm. No pericardial effusion. Mild calcifications left anterior descending. 3. Small subcentimeter mediastinal lymp h nodes, not enlarged by size criteria, with hilar regions suboptimally evaluated given lack of IV contrast. 4. Left upper lobe segmentectomy and re sidual postsurgical scarring, mild to moderate biapical scarring, and scattered bilateral nodules, nodular densities, and linear densities not appreciably changed. 13 mm groundglass nodule left lower lobes series 4 image 4 1 which could represent scarring or preinvasive adenocarcinoma, stable, with continued CT follow-up recommended. 5. Limited nonenhanced upper abdomen wi th no acute findings. Cholecystectomy changes and hypodensity left hepatic lobe, statistically cysts, stable. 6. Visualized nonenhanced soft tissues with no acute findings. 7. Moderate degenerative changes spine. IMPRESSION: 1. Postsurgical and chronic changes as above grossly stable. Performing Organization Address City/State/ZIP Code Phon e Number [id number] Pathology Outside Interpretation (11/17/2020) Materials Accession#, Stained, Block, Unstained Collected Receiv ed [facility] Received A. PRESCHOOL TEACHER'S ASSISTANT-, 17 SS, 0 BLOCKS, 20 USS 11/17/20202020 Diagnosis Cecum, biopsy (PRESCHOOL TEACHER'S ASSISTANT-, PART "A", 11/17/2020): [facility] Electronically signed by Irma parsons INVOLVEMENT BY THE PATIENT'S KNOWN EXTRA-[place]GINAL ZONE LYMPHOMA OF [place] ASSOCIATED-LYMPHOID TISSUE (MALT LYMPHOMA) MD Tai on 01/01/2021 at 8 :38 Colon, ascending, biopsy (PRESCHOOL TEACHER'S ASSISTANT-21-1791, PART "B", 021): PM Colonic mucosa with lymphoid aggregates in lamina prop krupa. Morphologic and immunophenotypic findings are not leonel gnostic for lymphoma. Colon, transverse, biopsy (PRESCHOOL TEACHER'S ASSISTANT-21-1791, PART "C", 2020): Colonic mucosa with lymphoid aggregates in lamina prop krupa. Morphologic findings are not diagnostic for lymphoma. Colon, descending, biopsy (PRESCHOOL TEACHER'S ASSISTANT-21-179, PART "D", 2020): Colonic mucosa with lymphoid aggregates in lamina prop krupa. Morphologic findings are not diagnostic for lymphoma. Colon, sigmoid, biopsy (PRESCHOOL TEACHER'S ASSISTANT-21-1792, PART "E", ): Colonic mucosa with lymphoid aggregates in lamina prop krupa. Morphologic findings are not diagnostic for lymphoma. Rectum, biopsy (PRESCHOOL TEACHER'S ASSISTANT-21-1792, PART "F", 11/17/2020): Colorectal mucosa with lymphoid aggregates in lamina p ropria. Morphologic findings are not diagnostic for lymphoma. Comment Cecum, biopsy (PRESCHOOL TEACHER'S ASSISTANT-21-1792, PART "A", 11/17/2020): [facility] Sections show fragments of c olon mucosa with partial crush artifact, disrupted by a dense diffuse neoplastic lymphoid infiltrate. The lymphoma cells are mostly small, with slightly irregular nuclei, co ndensed chromatin, and indis tinct nucleoli, some with increased pale cytoplasm. There is focal glandular infiltration with destruction (lymphoepithelial lesions, LELs) . A few cells show apparent plas macytoid differentiation (ec centrically-placed nuclei with a moderate amount of cytoplasm), and there are scattered mature-appearing plasma cells. No areas of increased mitotic activity, necrosis or large cell transformation are identified. Submitted immunohistochemica l stains show that the lymphoma cells including intraepithelial lymphocytes (IELs) are positive for CD79a and PAX5. CD3 staining highlights a T-cell-rich background. Staini ng for CD43 is difficult to interpret due to background admixed T cells. IELs appear negative for CD43. A CD138 stain highlights a few scattered plasma cells, which show a polytypic pattern of stainin g for kappa and lambda. The Ki-67 proliferation index is low, ~5-10%. Colon, ascending, biopsy (PRESCHOOL TEACHER'S ASSISTANT-21-1792, PART "B", 021): Histologic examination revea ls colonic mucosa with associated lymphoid aggregates in the lamina propria. The mucosal architecture is intact, and LELs are not identified. Submitted immunohistochemica l stains show that a PAX5 stain highlights B cells in follicles, while CD3 and CD43 stains highlight perifollicular and scattered background T-cells. The overall morphologic and immunophenotypic findings do not support involveme nt by lymphoma. Disclaimer "Some tests reported here [facility] [place] may have been developed and performance characteristics determined by [facility] Medicine. These tests have not been specifically cleared or approved by the U.S. Food and Drug Administration. If applicable, controls were reviewed and showed appropriate reactivity." Specimen Tissue Performing Organization Address City/State/ZIP Code Phon e Number [facility] [place] [address] [address] ABDOMEN AND PELVIS (10/25/2020 7:24 AM ROLLER TURNER) Specimen Impressions [id number] - 11/26/2020 2:27 PM CDT Wall thickening in the ascending colon a nd enlarging small volume ileocolic small bowel mesenteric lymph nodes compared to CT 10/31/2018. 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 No retroperitoneal, pelvic sidewall or i nguinal adenopathy. Narrative [id number] - 11/26/2020 2:27 PM CDT FULL RESULT: Examination: OSI CT ABDOMEN AND PELVIS, 10/25/2020 7:24 AM Clinical History: Marginal zone lymphoma Indication: Further information needed f or treatment decisions (please state in the comment field). Comparison: CT chest, abdomen and pelvis 10/31/2018 Technique: CT of the abdomen and pelvis was performed with intravenous contrast at outside institution on 10/25/2020 and interpreted on November 26, 2020. Findings: Chronic right middle lobe atelectasis/sc arring and left lower lobe scarring. The spleen, pancreas, adrenal glands and kidneys are normal. No hydronephrosis. Cholecystectomy. Scattered hepatic cysts. No retroperitoneal, pelvic sidewall or i nguinal adenopathy. Enlarged prostate gland measuring 4.9 x 6.2 cm. Colonic diverticulosis. There is wall th ickening in the ascending colon (series 501 images 55 through 60) with enlarging small volume small bowel ileocolic mesenteric lymph nodes. A compliance representative node on series 501 image 50 measures 1 cm and previously measured 0.7 cm. Another small bowel mesenteric node on series 501 image 40 measures 1 cm, previously measuring 0.8 cm. MUSCULOSKELETAL: Degenerative changes are in the spine. Procedure Note Nubia Pearce MD - 11/26/2020 FULL RESULT: Examination: OSI CT ABDOMEN AND PELVIS, 10/25/2020 7:24 AM Clinical History: Marginal zone lymphoma Indication: Further information needed f or treatment decisions (please state in the comment field). Comparison: CT chest, abdomen and pelvis 10/31/2018 Technique: CT of the abdomen and pelvis was performed with intravenous contrast at outside institution on 10/25/2020 and interpreted on November 26, 2020. Findings: Chronic right middle lobe atelectasis/sc arring and left lower lobe scarring. The spleen, pancreas, adrenal glands and kidneys are normal. No hydronephrosis. Cholecystectomy. Scattered hepatic cysts. No retroperitoneal, pelvic sidewall or i nguinal adenopathy. Enlarged prostate gland measuring 4.9 x 6.2 cm. Colonic diverticulosis. There is wall th ickening in the ascending colon (series 501 images 55 through 60) with enlarging small volume small bowel ileocolic mesenteric lymph nodes. A compliance representative node on series 501 image 50 measures 1 cm and previously me asured 0.7 cm. Another small bowel mesenteric node on series 501 image 40 measures 1 cm, previously measuring 0.8 cm. MUSCULOSKELETAL: Degenerative changes are in the spine. IMPRESSION: Wall thickening in the ascending colon a nd enlarging small volume ileocolic small bowel mesenteric lymph nodes compared to CT 10/31/2018. 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 No retroperitoneal, pelvic sidewall or i nguinal adenopathy. Performing Organization Address City/State/ZIP Code Phon e Number [id number] after 08/31/2020 Insurance Payer Benefit Plan / Subscriber ID Effective Dates Phone Addre ss Type Group AETNA MEDICARE AETNA MEDICARE [id number] 2013-Regina KESSLER [id number] [place] [address] (Home) [place] [address] Carlton Nuñez III Personal/Family Self [address] [place] [address] (Home) [place] [address] Carlton Nuñez III Personal/Family Self [address] [place] [address] (Home) [place] [address] Advance Directives Type Date Recorded Patient Epitaxial Reactor Technician Explanati on Advance Directives: 12/22/2016 12:00 AM Directive to Physicians Living Will and Family or Surrogates-Marsha ga Will Advance Directives: 12/22/2016 12:00 AM Medical Jimmy palm Medical Power of Anchor Tack Puller Anchor Tack Puller Code Status Date Activated Date Inactivated Comments Full Code 12/20/2016 4:10 PM 12/23/2016 4:50 PM Care Teams Housing Director Relationship Specialty Start Date End Date Emre Sloomon MD PCP - General 11/12/[address] [place] [id number] Kenny Greer MD PCP - External Referring 07/26/[address] [place] [address] Kenny Greer MD PCP - External Follow Up A 07/26/[address] [place] [address] Adolfo Little, PCP - External Follow Up B 08/12/[address] [place] [id number] Emre Solomon MD Physician 11/19/[address] [place] [id number] Jessica Patel, DIGITAL MEDIA DESIGNER Nurse Practitioner 11/19/[address] [place] [id number]
--- OUTSIDE RECORDS SUMMARY | 2021-08-31 09:39 | XMS REPORT | Continuity of Care Document ---
:1935 Author Organization [facility] t Address [address] [place] [address] Care Team Providers Name Role Phone [phone] Primary Care Physician Unavailable SYSTEM, PROVIDER NOT IN Attending Clinician Unavailable ARACELI Attending Clinician Unavailable Only, Test Attending Clinician Unavailable Vance FLOWERS Attending Clinician VANCE Attending Clinician Unavailable Doctor Unassigned, Name Attending Clinician Unavailable JEFFREY Attending Clinician Unavailable Jeffrey PA Attending Clinician Son KLEIN Attending Clinician SON Attending Clinician Unavailable Isidra Dalton Attending Clinician Unavailable Anne BAIG Attending Clinician Unavailable Josette Gamez MD Attending Clinician Bernard KLEIN Attending Clinician JEF Attending Clinician Unavailable Jef KLEIN Attending Clinician PAULETTE Attending Clinician Unavailable Paulette SIFUENTES Attending Clinician Sher KLEIN Attending Clinician EVERARDO Attending Clinician Unavailable EVERARDO Admitting Clinician Unavailable Payers Payer Name Policy Type Policy Number Effective Date Expiration Date S caterina AETHINA MEDICARE PPO [id number] 2013 00:00:00 Problems Condition Condition Condition Status Onset Resolution Last Treating Co mments Source Name Details Category Date Date Treatment Clinician Date Atrial Atrial Disease Active tachycardi tachycardi 4-12 An derso a a 00:00: n 00 Adenocarci Adenocarci Disease Active Last M D noma of noma of 3-22 Assessmen Keven so upper lobe upper lobe 00:00: t & Plan: n of left of left 00 Formattin lung lung g of this note might be different from the original. Mr. 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 A LLL groundgla ss nodule is also stable and too small for biopsy. We will continue [facility]illa [facility] with a follow-up in 1 year's time with a low-dose CT of the chest. 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 He has no obvious symptoms related to lymphoma progressi on. He is very low risk for significa nt disease change with his indolent histology and no evidence radiograp hically on any prior scans of lymphoma. Recommend he have another chest abdomen pelvis CT in 12 months. Allergies, Adverse Reactions, Alerts Allergy Allergy Status Severity Reaction(s) Onset Inactive Treating Comm ents Source Name Type Date Date Clinician NO KNOWN Drug Active Univers ALLERGIE Class ity of S [facility] Social History Social Habit Start Date Stop Date Quantity Comments Source Exposure to Yes University SARS-CoV-2 [facility] (event) Branch Alcohol intake 2020-12-20 2020-12-20 Current MD Mary Ann farrell 00:00:00 00:00:00 non-drinker of alcohol (finding) Tobacco use and 2016-12-20 2016-12-20 Smokeless tobacco MD Shah exposure 00:00:00 00:00:00 non-user Sex Assigned At [birth year] [facility] y of 00:00:00 00:00:00 [facility] Smoking Status Start Date Stop Date Source Unknown if ever smoked [facility] Ex-smoker 2016-12-20 00:00:00 2016-12-20 00:00:00 MD Baca son Medications Ordered Filled Start Stop Current Ordering Indication Dosage Frequency Signature Comments Components Source Medication Medication Date Date Medication? Clinician (SIG) Name Name CYANOCOBALA Yes 1{tbl} Take 1 MD MIN/FOLIC 04-06 tablet by Keven so ACID 13:05: mouth n (VITAMIN 58 daily. P60-NZISE ACID ORAL) multivitami Yes 1{capsu Take 1 M D n capsule 04-06 le} capsule by Jamir rso 13:05: mouth n 58 daily. ascorbic Yes 1000mg/ Take 1,000 MD acid, 04-06 mL mg/mL by Anderso vitamin C, 13:05: mouth n (vitamin C) 58 daily. 1000 mg tablet omega-3s-dh Yes 1{capsu Take 1 M D a-epa-fish 04-06 le} capsule by And erso oil-D3 13:05: mouth n (VITAMIN-D 58 daily. + OMEGA-3) 350 mg-400 mg- 1,000 unit cap finasteride Yes 5mg Take 5 mg M D (PROSCAR) 5 04-06 by mouth Jamir rso mg tablet 13:05: daily. n 58 folic acid Yes 1mg Take 1 mg MD (FOLVITE) 1 04-06 by mouth Jamir rso mg tablet 13:05: daily. n 58 turmeric Yes by (CURCUMIN 04-06 miscellane Jamir rso MISC) 13:05: ous route n 58 daily. prednisoLON Yes INSTILL 1 M D E acetate 03-12 DROP IN Anderso (PRED 00:00: LEFT EYE n FORTE) 1% 00 TWICE A ophthalmic DAY FOR suspension ONE WEEK, THEN DAILY FOR 1 WEEK tamsulosin Yes 1{capsu Take 1 MD (FLOMAX) 227 le} capsule by Keven so 0.4 mg 24 00:00: mouth n hr capsule 00 daily. cholecalcif Yes MD mezaol, 09-12 Anderso vitamin D3, 00:00: n (D3-1999 00 ORAL) Immunizations Ordered Immunization Filled Immunization Date Status Commen ts Source Name Name Moderna SARS-CoV-2 2020-10-19 Completed And erson Vaccination 00:00:00 Moderna SARS-CoV-2 2020-09-21 Completed And erson Vaccination 00:00:00 Vital Signs Vital Name Observation Time Observation Value Comments Source Systolic blood pressure 2021-04-06 16:59:18 146 mm[Hg] MD Shah Diastolic blood pressure 2021-04-06 16:59:18 90 mm[Hg] MD Shah Heart rate 2021-04-06 16:59:18 74 /min MD Keven mahoney Body temperature 2021-04-06 16:59:18 36.72 Mary MD Donnell choi Respiratory rate 2021-04-06 16:59:18 16 /min MD Donnell choi Body weight 2021-04-06 16:59:18 80.2 kg MD Keven mahoney BMI 2021-04-06 16:59:18 25.17 kg/m2 MD Keven mahoney Oxygen saturation in 2021-04-06 16:59:18 98 /min MD Shah Arterial blood by Pulse oximetry Procedures Procedure Date / Time Performing Clinician Source Performed ASSIGNMENT OF BENEFITS 2021-04-29 16:20:18 Doctor Unassigned, Un [facility] COMPLETE BLOOD COUNT W/ 2021-04-06 15:41:00 Isis Murphy MD DIFFERENTIAL TOTAL PROTEIN 2021-04-06 15:41:00 Isis Murphy MD ALBUMIN LEVEL 2021-04-06 15:41:00 Isis Murphy MD CALCIUM LEVEL TOTAL 2021-04-06 15:41:00 Isis Murphy MD Kevenderrick mahoney PHOSPHORUS LEVEL 2021-04-06 15:41:00 Isis Murphy MD GLUCOSE, RANDOM 2021-04-06 15:41:00 Isis Murphy MD BLOOD UREA NITROGEN 2021-04-06 15:41:00 Isis Murphy MD Kevenderrick mahoney SERUM CREATININE 2021-04-06 15:41:00 Isis Murphy MD URIC ACID 2021-04-06 15:41:00 Isis Murphy MD FRACTIONATED BILIRUBIN 2021-04-06 15:41:00 Isis Murphy MD derson ALKALINE PHOSPHATASE 2021-04-06 15:41:00 Isis Murphy MD Jamir rson LACTATE DEHYDROGENASE 2021-04-06 15:41:00 Isis Murphy MD And erson ALANINE AMINOTRANSFERASE 2021-04-06 15:41:00 Isis Murphy MD MAGNESIUM LEVEL 2021-04-06 15:41:00 Isis Murphy MD ASPARTATE AMINOTRANSFERASE 2021-04-06 15:41:00 Isis Murphy ELECTROLYTE PANEL 2021-04-06 15:41:00 Isis Murphy MD Results CBC 2021-04-06 15:41:00 Isis Murphy MD MANUAL DIFFERENTIAL 2021-04-06 15:41:00 Isis Murphy MD Keven son SERUM CREATININE 2021-04-06 15:41:00 Isis Murphy MD .GLOMERULAR FILTRATION 2021-04-06 15:41:00 Isis Murphy MD RATE CT NECK W CONTRAST 2021-03-18 13:12:32 Isis Murphy MD on LYMPHOMA CT CHEST ABDOMEN PELVIS W 2021-03-18 13:12:32 Isis Murphy MD CONTRAST LYMPHOMA CALCIUM LEVEL TOTAL 2021-03-18 11:41:00 Isis Murphy MD Keven son PHOSPHORUS LEVEL 2021-03-18 11:41:00 Isis Murphy MD GLUCOSE, RANDOM 2021-03-18 11:41:00 Isis Murphy MD BLOOD UREA NITROGEN 2021-03-18 11:41:00 Isis Murphy MD Keven son SERUM CREATININE 2021-03-18 11:41:00 Isis Murphy MD URIC ACID 2021-03-18 11:41:00 Isis Murphy MD FRACTIONATED BILIRUBIN 2021-03-18 11:41:00 Isis Murphy MD ALKALINE PHOSPHATASE 2021-03-18 11:41:00 Isis Murphye rson LACTATE DEHYDROGENASE 2021-03-18 11:41:00 Isis Murphy MD And erson ALANINE AMINOTRANSFERASE 2021-03-18 11:41:00 Isis Murphy MD MAGNESIUM LEVEL 2021-03-18 11:41:00 Isis Murphy MD ASPARTATE AMINOTRANSFERASE 2021-03-18 11:41:00 Isis Murphy ELECTROLYTE PANEL 2021-03-18 11:41:00 Isis Murphy MD RESEARCH PROTOCOL [id number] 2021-03-18 11:41:00 Bob Olsen MD Results CBC 2021-03-18 11:41:00 Isis Murphy MD MANUAL DIFFERENTIAL 2021-03-18 11:41:00 Isis Murphy MD Keven son SERUM CREATININE 2021-03-18 11:41:00 Isis Murphy MD .GLOMERULAR FILTRATION 2021-03-18 11:41:00 Isis Murphy MD derson RATE COMPLETE BLOOD COUNT W/ 2021-03-18 11:41:00 Isis Murphy MD nderson DIFFERENTIAL TOTAL PROTEIN 2021-03-18 11:41:00 Isis Murphy MD ALBUMIN LEVEL 2021-03-18 11:41:[address] CHEST WO CONTRAST 2020-12-20 16:50:00 Leatha Caldwell MD Jamir rson PATHOLOGY OUTSIDE 2020-11-17 00:00:00 Alonso Wagner MD INTERPRETATION OSI CT ABDOMEN AND PELVIS 2020-10-25 13:24:07 Isis Murphy MD Plan of Care Planned Activity Planned Date Details Comments Source Future Scheduled Test 2020-11-16 00:00:00 COVID-19 Vaccination (3 MD Shah - Moderndonnell risk 4-dose series) [code = COVID-19 Vaccination (3 - Moderna risk 4-dose series)] Encounters Start End Encounter Admission Attending Care Care Encounter Source Date/Time Date/Time Type Type Clinicians Facility Department ID 2021-07-21 Outpatient SYSTEM, MDA ANIRUDH [id number] 13:06:18 PROVIDER Tino o n 2021-06-04 Outpatient SYSTEM, MDA MDA [id number] 13:47:21 PROVIDER Tino o n 2021-04-29 Outpatient SYSTEM, MDA MDA [id number] 13:40:19 PROVIDER Tino o n 2021-02-03 Outpatient SYSTEM, MDA ANIRUDH [id number] 17:12:03 PROVIDER Tino o n 2020-12-17 Outpatient SYSTEM, MDA MDA [id number] 14:43:11 PROVIDER Tino o n 2020-11-08 Outpatient SYSTEM, MDA ANIRUDH [id number] 09:12:21 PROVIDER Tino o n 2020-04-02 Outpatient ARANAS, MDA MDA [id number] 18:08:05 KIMANI Reees n 2021-04-29 2021-04-29 Laboratory Only, Adc Test [facility] 1.2.840. [id number] Univers 12:12:42 12:22:42 Only Adelaide Simomns [id number] [id number] [phone] [facility] 353 Branch 2021-04-29 2021-04-29 Outpatient R VANCE [facility] [id number] Univers 11:30:00 11:30:00 OMHAWA ity of [facility] 2021-04-29 2021-04-29 Letter Doctor ERENDIRA [id number] Univers 00:00:00 00:00:00 (Out) Unassigned, JUDY [id number] [facility] [id number] Aniket as [phone] [facility] 044 Branch 2021-04-29 2021-04-29 Letter Doctor ERENDIRA [id number] Univers 00:00:00 00:00:00 (Out) Unassigned, JUDY [id number] [facility] [id number] Aniket as [id number] [facility] 044 Branch 2021-04-29 2021-04-29 Orders Doctor ERENDIRA [id number] Univers 00:00:00 00:00:00 Only Unassigned, JUDY [id number] [facility] [id number] Aniket as [id number] [facility] 009 Branch 2021-04-06 2021-04-06 Outpatient MARIE MURPHY MDA MDA [id number] 10:30:00 23:59:00 ISIS farrell 2021-04-06 2021-04-06 Outpatient MARIE CLINE MDA MDA [id number] 11:55:09 15:07:07 CINTHIA farrell 2021-03-19 2021-03-19 Outpatient MARIE CLINE MDA MDA [id number] 15:01:37 16:04:17 CINTHIA farrell 2021-03-18 2021-03-18 Outpatient MARIE MURPHY, MDA MDA [id number] 06:43:30 23:59:00 ISIS farrell 2021-03-18 2021-03-18 Outpatient MARIE MURPHY, MDA MDA [id number] 06:21:09 06:42:00 ISIS farrell 2021-01-08 2021-01-08 Outpatient MARIE CLINE, MDA MDA [id number] 15:03:21 15:23:15 CINTHIA farrell 2020-12-24 2020-12-24 Outpatient KEHINDE DELGADILLO MDA MDA [id number] 00:00:00 00:00:00 Tino farrell 2020-12-23 2020-12-23 Outpatient KEHINDE DELGADILLO MDA MDA [id number] 12:34:55 12:45:44 Tino farrell 2020-12-20 2020-12-20 Outpatient MARIE CALDWELL, MDA MDA [id number] 11:15:27 23:59:00 LEATHA farrell 2020-11-25 2020-11-25 Outpatient MARIE MURPHY, MDA MDA [id number] 08:22:19 08:22:19 ISIS farrell 2020-11-17 2020-11-17 Outpatient [facility] [id number] [place] 00:00:00 00:00:00 TONE [address] 2020-11-13 2020-11-13 Outpatient [facility] [id number] [place] 00:00:00 00:00:00 TONE [address] 2020-03-25 2020-03-25 Outpatient KEHINDE DELGADILLO MDA MDA [id number] 08:49:59 09:01:42 Tino farrell 2020-03-20 2020-03-20 Outpatient PAULETTE, MDA MDA [id number] MD 19:50:21 19:50:21 LEATHA farrell 2020-03-20 2020-03-20 Outpatient SON, MDA MDA [id number] 13:53:33 13:53:33 CINTHIA farrell Results Test Description Test Time Test Comments Results Result Comments Source Fractionated Bilirubin 2021-04-06 16:38:17 Test Item Value Reference Range Interpretation Comme nts Bili Total (test code = 0.5 mg/dL See_Comment Indo cyanine Green (ICG) may cause 5096) falsely elevate d bilirubin results. Total and direct bilirubin must not be measured from samples co ntaining indocyanine gre en. False elevation of total biliru bin can be seen in patients with I gG concentrations above 28 g/L. [Automated message] The system [employer] generated this result transmit shelby reference range: <=1.2. T he reference range was not used to interpret this result as monica l/abnormal. Bili Direct (test code = <0.2 See_Comment Ind ocyanine Green (ICG) may cause 5094) falsely elevate d bilirubin results. Total and direct bilirubin must not be measured from samples co ntaining indocyanine gre en. [Automated message] The sy stem which generated this result transmitted reference range : <=0.3 mg/dL. The reference range was not used to interpret this result as normal/abnormal . Bili Indirect (test code = See Note 0.0-0.9 U nable to calculate Indirect 5095) Bilirubin resul t due to some parameters are outside reportable range MD ShahGlucose, [id number] 16:38:15 Test Item Value Reference Range Interpretation Comments Glucose Random (test 73 mg/dL 70-199 Effecti ve 04/07/16, the code = 9360) glucose referen ce intervals have been updated based o n [place] [employer] franklyn delines (Standards of M edical Care in Diabete s 2016. Diabetes Care 2 016; 39: S13-S22).Fastin g blood glucose:Normal: 70-99 mg/dLImpaired f asting glucose (increa sed risk for diabetes or pre-diabetes): 100-125 mg/dLDiabetes m ellitus: >/=126 mg/dL Ra ndom blood glucose:N ormal: 70-199 mg/dLNot e: Random glucose >100 mg /dL is associated with increased risk for diabetes MD ShahGlomerular Filtration [id number] 16:38:14 Test Item Value Reference Range Interpretation Comments eGFR-AA (test code 79 See_Comment Normal eG FR: >= 60 = 8062) mL/min/1.73 m2N ote: The eGFR is calculated u sing the CKD-EPI equatio n. The eGFR declines with a ge. eGFR <60 mL/min/1.73 m2 is considered as "decreased". This equation should only be used for patients 18 and older. According to th e National Kidney Foundati on's Kidney Disease Outcome Quality Initiative (KDO QI) classification and 2012 Kidney Disease Improving Global Outcomes (KDIGO) Clinical Practi ce Guideline, the stage of CK D should be categorized bas ed on estimated GFR. Stage Description GFR mL/min/1.73 m21 Normal or high GFR >=902 Mildly decrease d GFR 60-893a M ildly to moderately decr eased GFR 45-593b Moderat cornelio to severely decrea sed GFR 30-444 Severely decreased GFR 15-295 Kid autumn failure <15 [Automa shelby message] The system [employer] generated this result tra nsmitted reference range : >=60 mL/min/1.73 sq. m. The reference range was not used to interpret th is result as normal/abnormal . eGFR-LESLIE (test code 68 See_Comment Normal e GFR: >= 60 = 8063) mL/min/1.73 m2N ote: The eGFR is calculated u sing the CKD-EPI equatio n. The eGFR declines with a ge. eGFR <60 mL/min/1.73 m2 is considered as "decreased". This equation should only be used for patients 18 and older. According to th e National Kidney Found[employer] on's Kidney Disease Outcome Quality Initiative (KDO QI) classification and 2012 Kidney Disease Improving Global Outcomes (KDIGO) Clinical Practi ce Guideline, the stage of CK D should be categorized bas ed on estimated GFR. Stage Description GFR mL/min/1.73 m21 Normal or high GFR >=902 Mildly decrease d GFR 60-893a M ildly to moderately decr eased GFR 45-593b Moderat cornelio to severely decrea sed GFR 30-444 Severely decreased GFR 15-295 Kid autumn failure <15 [Automa shelby message] The system [employer] generated this result tra nsmitted reference range : >=60 mL/min/1.73 sq. m. The reference range was not used to interpret is result as normal/abnormal . MD ShahUric [id number] 16:38:13 Test Item Value Reference Range Interpretation Comments Uric Acid (test code = 7955) 5.0 mg/dL 3.4-7.0 MD ShahMagnesium [id number] 16:38:12 Test Item Value Reference Range Interpretation Comments Magnesium (test code = 6359) 2.3 mg/dL 1.6-2.6 MD ShahTotal [id number] 16:38:11 Test Item Value Reference Range Interpretation Comments Total Protein (test code = 7649) 6.6 g/dL 6.4-8.3 MD [id number] 16:38:10 Test Item Value Reference Range Interpretation Comments LDH (test code = 196 U/L 135-225 Results gre ater than 1651 6111) U/L may not be reliable due to matrix effec t with extended diluti on as it exceeds the man ufacturer s recommended l imit. Caution should be exercised when interpreti ng such values and done in conjunction wit h clinical context. MD ShahCalcium [id number] 16:38:09 Test Item Value Reference Range Interpretation Comments Calcium Lvl (test code = 5258) 9.1 mg/dL 8.4-10.2 MD ShahAlkaline [id number] 16:38:08 Test Item Value Reference Range Interpretation Comments Alk Phos (test code = 4768) 77 U/L 40-129 MD ShahAlanine [id number] 16:38:07 Test Item Value Reference Range Interpretation Comments ALT (test code = 10 U/L See_Comment [Automated message] The 0744) system which ge nerated this result transmit shelby reference range : <=41. The reference range was not used to interpr et this result as monica l/abnormal. MD ShahElectrolyte [id number] 16:38:05 Test Item Value Reference Range Interpretation Comments Sodium Lvl (test code = 140 See_Comment [Au tomated message] The 2518) system which ge nerated this result tra nsmitted reference range : 136 - 145 mEq/L. The reference range was not u sed to interpret this result as normal/abnormal . Potassium Lvl (test 4.2 See_Comment [Automa shelby message] The code = 6854) system which ge nerated this result tra nsmitted reference range : 3.5 - 5.1 mEq/L. The reference range was not u sed to interpret this result as normal/abnormal . Chloride (test code = 106 See_Comment [Auto mated message] The 6795) system which ge nerated this result tra nsmitted reference range : 98 - 107 mEq/L. The refe rence range was not u sed to interpret this result as normal/abnormal . CO2 (test code = 5227) 27 See_Comment [Aut omated message] The system which ge nerated this result tra nsmitted reference range : 22 - 29 mEq/L. The refe rence range was not u sed to interpret this result as normal/abnormal . Anion Gap (test code = 7 See_Comment [Aut omated message] The 1335) system which ge nerated this result tra nsmitted reference range : 4 - 14 mEq/L. The refe rence range was not u sed to interpret this result as normal/abnormal . MD ShahAlbumin [id number] 16:38:04 Test Item Value Reference Range Interpretation Comments Albumin Lvl (test code 4.2 See_Comment [Aut omated message] The = 9271) system which ge nerated this result tra nsmitted reference range : 3.5 - 5.2 gm/dL. The refe rence range was not used to interpret this result as normal/abnormal . MD [id number] 16:38:03 Test Item Value Reference Range Interpretation Comments BUN (test code = 5055) 13 mg/dL 6-23 MD ShahAspartate [id number] 16:38:02 Test Item Value Reference Range Interpretation Comments AST (test code = 15 U/L See_Comment [Automated message] The 5991) system which ge nerated this result transmit shelby reference range : <=40. The reference range was not used to interpr et this result as monica l/abnormal. MD Shah.Serum [id number] 16:38:00 Test Item Value Reference Range Interpretation Comments Creatinine (test code = 5399) 1.01 mg/dL 0.67-1.17 MD ShahPhosphorus [id number] 16:37:59 Test Item Value Reference Range Interpretation Comments Phosphorus (test code = 6817) 2.7 mg/dL 2.5-4.5 MD ShahY[id number] 16:19:33 Test Item Value Reference Range Interpretation Comments Neutrophil % (test code = 64.5 % 42.0-66.0 23355-6) Lymphocyte % (test code = 21.9 % 24.0-44.0 L 737-7) Monocyte % (test code = 10.9 % 2.0-7.0 H 744-3) Eosinophil % (test code = 1.5 % 1.0-4.0 713-8) Basophil % (test code = 0.7 % 0.0-1.0 707-0) IGRE % (test code = 0.5 % 0.0-0.4 H IGRE % c ount 99869-9) includes Metamyelocytes, Myelocytes, and Promyelocytes. Neutrophil Abs (test code 5.59 K/uL 1.70-7.30 = 753-4) Lymphocyte Abs (test code 1.90 K/uL 1.00-4.80 = 732-8) Monocyte Abs (test code = 0.94 K/uL 0.08-0.70 H 743-5) Eosinophil Abs (test code 0.13 K/uL 0.04-0.40 = 712-0) Basophil Abs (test code = 0.06 K/uL 0.00-0.10 705-4) IG Abs (test code = 0.04 K/uL 0.00-0.04 55780-8) Lab Interpretation (test Abnormal code = 31740-7) MD Shah.[id number] 16:19:28 Test Item Value Reference Range Interpretation Comments WBC (test code = 8.7 K/uL 4.0-11.0 6690-2) RBC (test code = 789-8) 4.61 See_Comment [Au tomated message] The system [employer] generated this result transmitted ref erence range: 4.50 - 6 .00 M/uL. The refer ence range was not u sed to interpret this result as normal/abnor mal. Hgb (test code = 718-7) 10.8 See_Comment L [Au tomated message] The system [employer] generated this result transmitted ref erence range: 14.0 - 1 8.0 gm/dL. The refe rence range was not u sed to interpret this result as normal/abnor mal. Hct (test code = 35.6 % 40.0-54.0 L 4544-3) MPV (test code = 787-2) 10.5 fL 4.0-10.4 H MCH (test code = 785-6) 23.4 pg 27.0-31.0 L MCHC (test code = 30.3 See_Comment L [Automate d message] 786-4) The system [employer] generated this result transmitted ref erence range: 31.0 - 3 6.0 gm/dL. The refe rence range was not u sed to interpret this result as normal/abnor mal. RDW-SD (test code = 54.3 fL 35.1-46.3 H 11031-6) RDW-CV (test code = 19.6 % 12.0-15.5 H 788-0) Platelet count (test 170 K/uL 140-440 code = 777-3) INRBC (test code = 0.0 % See_Comment The INRBC (instrument 5974) NRBC) value ref lects the enumeration of nucleated red b lood cells contained in a 200uL sampleof whole blood analyzed by the instrument. Thi s value maydiffer from the NRBC value repo rted in a manual differential,wh ich is based on a 100 cell differential. [Automated mess age] The system [employer] generated this result transmitted ref erence range: <=0.0. T he reference range was not used to int erpret this result as normal/abnormal . Lab Interpretation Abnormal (test code = 17890-5) MD ShahResearch Protocol [id number] 14:36:40 Test Item Value Reference Range Interpretation Comments Research Prot (test 20050312 code = 7189) CINDI (test code = CINDI) Schedule during a standard lab appointment.Please contact Ancelmo Fair \\Manjit\\ Bernice Miller for blood pickup MD ShahPathology Outside [id number] 01:38:00 Test Item Value Reference Range Interpretation Comments Materials Received (test x6hxnPGvQTNjtAFmJvUd code = 9973) IERkDTLkd7qlCQMymTAg ZzEwMzNcZnRuYmpcdWMx BBEvPuLbq0sye627uQJq u4ksHOJoZgD6zDDfKGXd wVAqE866FOZfLYvup5ae v1ApMOSbqFUmv9U3KTNM oonvoZp2nWkcU57qf1F0 ApwgI5uaKOWwHKSqR0Oa MK9gOVYwIjk0WWZ2JZE6 TTAiXLLuK9BlKR4fAUUv lRPaIZn1j9orwBzcSCBv LBE3r4hyWPbakvZuTU7d pv6pdGf0o3luceLzOPAb FOGwgENBJNMmD2BxnZzr Kd9fpRf5fOkmAsyeGGJ5 Fqr3BA1zpz32ijx9lVur CEOumxbwKdA9CCtwCLAo cgxdSCc2OZfcZPWiuGei MFxtYXJncjcyMFxtYXJn vLU3QNUcfONnH7DsCBLr VUkiLJDonto6RuAfQy8c jXVseFksJOkwl2ujf0qr fGUgFxf8HJZhKrLgKrwo MKggf4Vhs8ldAKPgev5q MQZ3xUEgaPast1K7rJDp XQHdfEKyuvDyQWLqlz63 gHYudOLzlIUabm0kpmBv aNKqfXSnIIW2rHQfcxJm JOOijYNfVHMbWC3iuTPe SYQuzL3ozddjHTWkVnTi ihoaQOZnbZikrtItZa3i xGpaBBC8ZAiqX7fkrV1e JoT7UOwxR4kpnW2bRRn6 MMxraMW5XAQbvE3wNM5d hcziy8yvExKkIJ5qrtyd k5zpPfRqLY7xxvt0j1vn RJG9ESxkNVYyKkS5ukK3 NDBcaGVhZGVyeTcyMFxm s740FQK5WyLiLUBer0Zs A0ZqoZhyV07ovEzmV94w OLSxnAuzxG3csEcqmQ4u VkGiMvTrHRb1bp16TDe7 htrnfJezTMb0uyUtYUPw FFE7NCIvmQQeMWTnZ4r8 xfAsFKMkOCU2UEJnfHLi FSTlW4j3daStYJM4HBn3 cnBhZGRmdDNcdHJwYWRk YjBcdHJwYWRkZmIzXHRy mXOgyBGtoCKrpB4cwOav YYAnmWWpmL4pMKQ3YWYl cmgzMjBcdHJoZHJcbHRy vm44IEUztvLynQEqqKxp dCJdOXQ3WZFbDHSsEKLd GYF9JDWvRlSodvIoWWhy bGJyZHJiXGJyZHJzXGJy PKG5SBJxXzDtztIoHVlr bGJyZHJsXGJyZHJzXGJy RQQ8KNDePjGhotZvWUjy bGJyZHJyXGJyZHJzXGJy WSW0XXUkMvCvtmRkUOpi bHBhZHQxMFxjbHBhZGZ0 A8khkDKiFDJbLRvhlWUl WZTcW8vvsWHkQMnsHTKt cGFkZmwzXGNscGFkYjBc N9lgURCzUcMbD8CneUb7 MDAwXGNsdmVydGFsdFxj wIFeTOG5NBEzSOZkBPQl JHT4GCTeDmBqlsCjJKwa bGJyZHJiXGJyZHJzXGJy QYW0OHQwMnVcusAeWBit bGJyZHJsXGJyZHJzXGJy HAY8OQAeArWdxgKtOAll bGJyZHJyXGJyZHJzXGJy TDG4KKIfQsEgutBqDYvh bHBhZHQxMFxjbHBhZGZ0 L7scnYIkWWNvOVxozQQq MTGfN6odpYExNIutCGAn cGFkZmwzXGNscGFkYjBc F8dtSWXwYuWeM3StmZi8 NjAwXGNsdmVydGFsdFxj fAAwSPA6WBPdQOJuRRKh VUW8UDCeMeFdbuLqUCls bGJyZHJiXGJyZHJzXGJy PZF8SIWwTaFuonGsKWwx bGJyZHJsXGJyZHJzXGJy GGA4FMQwUlOwpqUzDVto bGJyZHJyXGJyZHJzXGJy DOV7LGAxEoJdcbZvNIns bHBhZHQxMFxjbHBhZGZ0 K6slfAQfTSJwTGqevZIu OOXsW7eekGWzLUwpVYBj cGFkZmwzXGNscGFkYjBc J5zrUXInIqNfW7McaNr2 GoBhHVDgzxAkuC91Oppx y2KrZQFqSSB3SUpgCIkx bFxwbGFpblxmMVxmczIw RYipsbtrEIGxBGmkN9rd XtVtBBOjzLboMDhci9Gi XGYxXGNmMlxmczIwXGIg QOXyQBTnwV5pEppeT9Ow sP9dYMruRqnfU8blEXMa w1HopF7eKQffdDQbucaw MVxmczIwXGxhbmcxMDMz SUfdS1vyPaEaKCJwnJqr KPujt9RmUPLsDAQwSggt bqNfJZy1wyOaBZKvkNaq tFGhUJtzekTehYwac8Zv ltUgkCjzZXQzADl3mnOw hyffzAf8iXHsfLhlKFWu sDjkrD3zJjKqZuCtMMiz bGFpblxmMVxmczIwXGxh hhijPZXaBNicK9jsNdQd PMLabLezFNvli6IjDMLu HTLmIlhtopLuCDAiK12c bGVjdGVkXHBsYWluXGYx XGZzMjBcbGFuZzEwMzNc aGljaFxmMVxkYmNoXGYx VWyiN1edIzGhK5HnLOHr ToEqxWGqV7gtU3EtkOpr YXJkXGludGJsXHNzcGFy GZY5xUWclcWdtPVotDBg BPLqYRyrWSG1rYCjkfqk iCXkfkkrVCwditQ5MJDa YWluXGYxXGZzMjBcbGFu ZzEwMzNcaGljaFxmMVxk SeKpMKJnLItdS3mbIwQu R0QdISFlUnKiKpEKJWDt aXZlZFxwbGFpblxmMVxm czIwXGxhbmcxMDMzXGhp T1ovRwIsEEFnkAfiXIrv h3CwRVBwYOUrCdgdkrCo QZr1epFnDENhvFhetQ11 Nctelg29XXJjb6wsLKOk T2WfhPSoOPEuwKVxWQco MDhcdHJwYWRkZmwzXHRy cGFkZHIxMDhcdHJwYWRk ZnIzXHRycGFkZHQwXHRy wBCkBKW2V2q0gbMlZIJd RXo6ibNpJXSjJjEvsHUi UVE4VPh1YpmilxG1iCAu X4m3LohwzaSuBZcgoHSp jg07QFHxdrDlpSMisIfe hWTzPBQ3NZGwQAKiWCYo WAA5LEVxVnAzqfDwQXea bGJyZHJiXGJyZHJzXGJy FVR3DNLdAbLhenZqFSzu bGJyZHJsXGJyZHJzXGJy VVV3FPOjIzXdskQlENmk bGJyZHJyXGJyZHJzXGJy IBE2VELqBsIlkcMjYZdm bHBhZHQxMFxjbHBhZGZ0 N1bobLJwVIAkYBgryLUx SMJwX7sheIAxIGmhLNTo cGFkZmwzXGNscGFkYjBc Y5hkAMAaFqIpI4QwfVh7 MDAwXGNsdmVydGFsdFxj wEQhNHU5TDJtHRMzYWEh QOV0NJNcMmYpmcIiZIfr bGJyZHJiXGJyZHJzXGJy XST2XOXwVzTqvxJzNMpn bGJyZHJsXGJyZHJzXGJy VIX9JLLuYeDmmbCiGVko bGJyZHJyXGJyZHJzXGJy TKH4PUBuEzLdwoTjFCnk bHBhZHQxMFxjbHBhZGZ0 T9iavPFkKCLdDVawvDXc WOYeV7nesERaEDqcSASe cGFkZmwzXGNscGFkYjBc O4epQVIdRoWeR0HopTe9 NjAwXGNsdmVydGFsdFxj lSFjQUL4PDLtUBYnXUIc HOA7UFYsGtZbruMsPTgq bGJyZHJiXGJyZHJzXGJy UED3PZLnPkHntpLsMYuj bGJyZHJsXGJyZHJzXGJy ROW9NQPiCgDpagFcJJso bGJyZHJyXGJyZHJzXGJy YKH1MWAgPdTtmaNvDOoi bHBhZHQxMFxjbHBhZGZ0 S7iqtUSgZXOfRGarkNZe KNGlK8afhCClWYhqTFEq cGFkZmwzXGNscGFkYjBc S9tkGTJbDlNkJ7FmqKu6 BoNmNWSrfeOgeD74Eldo n2BmWYUdINJ8LPziNPeu bFxwbGFpblxmMFxmczI0 XHBsYWluXGYxXGZzMjBc bGFuZzEwMzNcaGljaFxm TNhmDoUdJJAkFXdkJ1tb EsIvU0WqONZoGpGgOR8g W2zDKUYkLKJ6BXPrWWR6 XUIIAKZuQQKJE9MCSyig MjAgVVNTXHBsYWluXGYx XGZzMjBcbGFuZzEwMzNc aGljaFxmMVxkYmNoXGYx XCrpI6juBfFmC2RwDDMm GrJhkGUbG8cbX4SwlKqe YXJkXGludGJsXHNzcGFy NVZ5rHOblfGqqFodfVlk rG2yChXvJpZnFNtfyFXq blxmMVxmczIwXGxhbmcx WXEiDKtgY4jiIqMqCVKl eEgoNNzqd5VjJWEsJYEy FdelqjGnCPGlOU4xGFXf XHBsYWluXGYxXGZzMjBc bGFuZzEwMzNcaGljaFxm NQbtYbXpMZExJEcsC0zv NpCpO6QdPXEuUoRwpEXb Z8ewV9LteMltNALxFKkr gPEmIUWwzCOjWRR0xIPh cbAkzFvsmQjyzP6rAuNt ZnMyNFxwbGFpblxmMVxm czIwXGxhbmcxMDMzXGhp S4sgSlPzVQIhvHpeURsn f1UaQPFlXQUyIsrqioKy IDQvMTUvMjAyMVxwbGFp blxmMVxmczIwXGxhbmcx JPLvAUqjQ0nqGrIjWRWw mTdmNNjrp7LwOMBiJVTv SfxwuiSaJRo1nfVzDXUj yVyuvW49Ygqwlq49ZEPh fuYnv0OzXJSmDIA3YCkp MFxxbFxwbGFpblxmMFxm rkK5XGGzBUufBEHzIRDx MjBcbGFuZzEwMzNcaGlj aFxmMVxkYmNoXGYxXGxv N0kvJbDiQdFhFWhvOMV4 Diagnosis (test code = [id number] 34) OOGnh1raq4AxgQUtmTKa JWspoOBjvlTwwc46eSV8 lV06VB6uNHVaSnF0PLUl iuO9Bmr1SLLtJDDunYBg Y204h1hwe1zmrdSpxWT8 fVxwYXJkXHBsYWluXGZz FmBnS5WakI6sCGHab6Uy pIAgY0eJFCUqUPT8CZGv IFBBUlQgIkEiLCAzLzgv TqNaOYi8UNVxjslkXOZq eOb1UlKzdRkqKtNqPZgX Dk9JLnKPGG9GZTZHPBKD MICVFPQOFQ0UP6SmX55U E35dNAcUUxTnIh5SFJpq PVJWD9zOVSdbCm4JIZNG IT1DGK1EVSPMCiVQZYQW C3QwWMDCX5BDUOLQAE3B YQ2BCX7LNOMVQXVOLEPo WP0ONWEgTCaREMpVUUMo XHBhclxwYXJcbGkwXGxp orOnK90ex80mEJLaW4Wa WIuiBgbiInswfJW9KKmN VHFzMeIsAAs2NlnnNKPR XMRqYcYkSMCyEX4cXGTv KTpccGFyXHBhclxmaTcy RNXOl8bidhmjDX87Q68x QUT4gGYeFFj2iGTir1wn ELLpG4FzU9R1KXWfpE2j tAAskQ6iZHMie5ZhlPCw IFxwYXJcZmkwXHRhYiBN d3AhgX3vi1voSuJupwPy hK6atP3brLtmma33oINr HaArcI2uuV1wpcXoidRf gi18ZNVaCByod4J0aKIt Uw7vPEh5xYSvv54iPqZs zXBlERWcweTTz1rhhlra kZDagdX7IBUjBYnmDixh xZI0SMfAJIKwSuIrBGy6 MiwgUEFSVCAiQyIsIDMv XK8aCINtBIkqyWWlLKTh drmhoKiwIQETx2eavjtk SY48D03iVBC5rLSsBQh6 gZCgy2qkFVJgE8KkI2W7 FHJwbT3eiPOeaS8sWSHx k7BzfFXpZYnpLIGuNqwa NDWvEnWWh1RcfR5vv0xt FnEjyD3xhB7bclRbojLm ld77EZTzINxsz6U1dELm Zs0kGUq7oJUwt98tRcCl iMYgVGMmucJRv9qjlkbr DFVpE6KuKLduKyqdMjus vQL1OOcKMKVkOiNyOVr4 MiwgUEFSVCAiRCIsIDMv IU7eQJOfLRazlIQuQCGk rlomgNusXTPRs2rranxo ZB75P72jQHY3oGScRSe4 yMKbt3ghFIFxO1QtS6V0 UPHizK9iiXEtuK6zWQMl j1TtwUOkGKupDSFiUnje DIRsBtNYk5XofU3qu9er CwTdtN3clX8tkeWeqoMd vk38AJGhRPiod5S9sTGo Oe9dMLc1hUVaq53eAnKt mVJoEEWrovLWt3ybtvtb k4yrvT0xLEymYyfkuBN9 TQqKCXUuJgJfBKb3Xcos ARTYNKLpPQRhAGNiQG8m MDIxKTpccGFyXHBhclxm fApbFTHOf5qjlwirQY88 P43wRVZ1oOBeRTd9oGCm e1rxVUMqT3MbT3R0KLUc lZ9ksGSdpI4fHFJhd1Ad aWEuIFxwYXJcZmkwXHRh UaTPu1IeuM7zz4rlToRi bL9toG4fsrMvlrJuzi43 LSApWLfia0S9aZZnLb8n CRs4zMOtj10lSkMdhKPt KAZsqwVUTZJ4uQ8wNQRy o3IjpSYoF2oNORFrYSX2 OTIsIFBBUlQgIkYiLCAz EtmuHjAgJBy8NFMtuokc NNBsZof3DkKrE02lv3Ez M8OqiQXovJKzs7Mer9z5 yPPprO7gxU6hSVXeO9mu ZWdhdGVzIGluIGxhbWlu INMsid8mdondWvQwvFMv RYXkETp3CDZzPI6ocUul yO3xoKOhRdooCErzS1Yp DGIlFM6lhQZpgKNlst8v iCvgGWFkawFtxI9qiZ3z WE6uYQSfht2= Comment (test code = x5mxbVVpONSaaYQ0ZfVd 9885) SBYpy1bpy8XdzHNzaSXt NNtdeFTrpjXqwm93bKK6 aR59UE2fGLXgNwG6YLOf bdP1Pgp9CIFmVIWpnQDh J626q1ckk3htbuEtbJY7 fVxwYXJkXHBsYWluXGJc oNqbDbCaQLKKCNB1lPfv VxucxHV5DPhXQJGdWiHa KBc6YxicVTOKNMEnPSZc DMQnEU6fFNRiPRzydGSe JWMuKMPbVYytJTSaV1Qo oMmqokLhf4dgqkZdzsAp oLOarYTvq7EkI18th14p vBDve3JcCEeslQwriKIw dGlhbCBjcnVzaCBhcnRp ZmFjdCwgZGlzcnVwdGVk LTU5PVEpEQJux4XuXAsp QgNdVEAvGP3wcFWcjPds LBn2vKJbr7ikUZmdPazh dHJhdGUuICBUaGUgbHlt gHghpXZdZ6PgsVLeFZJm YM9wo9JfqTDlfXHntFib a8a2bBTryQdqeQHiaBEk zwRvL5MhRRPnpfJgkOUl MFBwk02oBM3zOJZdH0kp v61lgRyuAAUexiJfyK1t mOF4uO0nlJAjeNCgNP7y pZzwk77mTZA6nDFkFNfu P3QrKDQkCSYnEGdvFGB1 oY4euKFprT5uPUUaKQQf MGkkEXLeR3SuCUkhNA6c dWxhciBpbmZpbHRyYXRp n90kg1t9hANmCMG4dmEu dGlvbiAobHltcGhvZXBp uRfeqOsuqHPqVJDya79t LCBMRUxzKSAuICBBIGZl srFsFVbvcpJfdB07HNBk wKQvQS12DRCqUCPiZKS4 nM0wZJWxoIBaKCIdwvNi ILQlu22lKHXyN5JroYYe C4EloZrrgBovZ3GrUZ00 X7tygMB2cSZaZDNnfO3n EBEasGVsCC6hxU36GF9j KWD9kB5ajOBhgBrbQGTl BKL5pFEcOFYmgtZtw2To mVJcjtHjUP4sgUOjDV8t iGKjHNDgbtybiAabx67d IGNlbGxzLiBObyBhcmVh cyBvZiBpbmNyZWFzZWQg dYt7t4FwPeTlT5Jflep3 oVaxslZqch1lsFZol8Zc cQLlI5YfK0TuxFG7ntQn v4Ytnt5iqAsbbvArxvUo vWJwxxKeUdpgSW4pMBRw clx+XHBhciBTdWJtaXR0 QFNtgG9sfC9npPwjqF3m aGVtaWNhbCBzdGFpbnMg c0ajsvS8kIN9FQXaYSPn iO3ojD9dBJQgGGeimeWy geIwrYWkdapcaK41ufDh vOe7xKHogLMiOAt4bFMc o8K0fTVyRSeIVMmmWAEi ofXyuC8auRQhqpZyEt7j IENENzlhIGFuZCBQQVg1 RhCmW7PjUME3UKqxsF9a FZvmA3mpbAuewGUyRDYY LWNlbGwtcmljaCBiYWNr F4NfqB7qLfOcQ8HmoX4e kueuDv2yCTPPWKOkbMDz KUrdHxcqoNs5IRYoWRdl aDLjcEJiqBYqsLChtB9w QgJaj0msi2CwJDTfFB5u pWLbTGVhM8PxiTGcKAXS RUxzIGFwcGVhciBuZWdh uKa8MWBqh2AsU3W1Ym8l JBRxY5MjYvywa4RvcW6e iOrcmRhmP7p6mxDqMVUh cmDmD3W6fTAgYQBgdAkd k78yIVDceQdnYBP5iVxv mJIboW02DKOtbC1xeRW8 fViyWBXrqWLrmb8hf1Es s4ZniY7rimrsVs8iGJtn hPTqGWBvUOCpGF4iKSEh BGLYxWHbF0zqAvoabXAt bGlmZXJhdGlvbiBpbmRl gRFjcpDvk2ltTJ48HFLw HO6aOWLwnhelBUJmYDYe zdWSr0qcxgmyRXGhKU4t uP5pUCNvlG1qi7xhUKOK PU7cCX6tSecsCAPRSXNT ZLSFMzezNu39PoQdWvYr OlxwYXJccGFyXGIwXHVs AQQYnEX4g2tvM2wfPRF1 YD7bjeJ3oU5iNOSutwEo yHTbP63au68mBnLbkGEe g8Cbe7q7kKZbm5XrH9yx fQMjLGv3zOSso8neCIRn B1ZqP6M8UOVddL9uzDpn ZAiooMqbSKPkwz8mucar QuGQhIBvpLByd1DhhJEj uoQmhSLjZ1D6hkLwfWLz tF08MHM7URKodmUeLDOM fbZxuaZahr58RVhaWK16 aWZpZWQuXHBhclx+XHBh bnAZfVVhoBU9JRRxuF3l jZ1kwBvzyH4hnOPuaXOp sBUifAYqljCrd6cctuQ2 bEL0OSSpJZIUZFTasGUl biBoaWdobGlnaHRzIEIg F4IdmHXcdO1nTi5ngKyx bBLbQIW9yKxuCKWWICXv NM0pDAUIBFAtj8WduJ1x JWksA6hesUdlhHDaZVMn Xy1spOzzaQhdnvDcxjCd r4InwDUuhwGhIHYcQ7br rc85haKxFH3dRNokit7l UNtsFY09UETxjGlhwR2n wVpqyX2owMBuZR4tONcl qEOnn7VrTC1nsBwmbEQj TauxHJwhM6YbUC6opg38 CTD5wRKjsoBvyI95q6m1 YB3gaxXzHlntaFjpwEvh tODeTNuvBCCgVyy2eLmn YXJ9 Disclaimer (test code = g2mvnHFhNAUiuOIbJiCr [id number]) FPIgGQStu2vmLVIsmPUl ZzEwMzNcZnRuYmpcdWMx HYNqDwTzn2bpu449uOHe p3deJQYpMeG5pMWtECZt nFKdH935HZIyFRstf6za t3MzZGDnlRDns2T7JRDB oacrsYs5dZlxR72xk0H4 UzrfE8vgKRBkPYYeK4Gf BR0yMAGaMei3GIV4FQV1 ARLuGSFkB0LeQS3tDRCk fWTwTXp5f2kbpCbpLRIx UKQ5r5roHJcjgwBbQH0u jt0rqSp1e9izatOmPXFw EOTwkDEMSMJmX3DmdPji Py2wpPf9mCfrJbwwGJQ0 Cib6ZH7hpu79nia9rPob TVQsydfbMdI2RVrrMRSi efdeOSp6SZxpOWQleNJ5 CIUorBSvM8MlFUDvTE0a vkq2MZG1LVuyDDVoLlV6 NDBcaGVhZGVyeTcyMFxm p374BWO5YaVhPB7dT1Bj q1C8rH0qoKEqPBVroOGz IbBsNGOaxi4rnGXgYSnr m8BpPTD3cqD4zGPrsFQi QZVqUA19Lzrwb9KdXlnl KSW2LQEtkqTlk6Nmd2nk QdVcwgYgS8esZ5BaKWJd ZNOgKSLqBuFdtvQaf5Kp t0YxjWUayFd5r1ysRUAx YFLvvJyck2fqPOD6DLZl W6V3sCCsj1ghOLqpLCUk yPX3toW3PJZggYJfP1Ou mQ4yWMDfWK2fhym2x5ov ZLH1OUumDDJmTvU4nyD2 NDBcaGVhZGVyeTcyMFxm h988YEL8DhPjKQEhg2Cy J5OosRkhY84mvYchJ00w AKXjxRoprB8joSnogX3f ZjBcZnMyNFxxbFxwbGFp xvbfAMsqakX6NZhwedzy MMPbFBahU6odCcRfDMPh mWtbCFnrb9VjKLTwXWNw CkthwlO3AADNg80rDNFz z0JcZRMvxM4yhICeWBek avXehPT8YHokwgCjZtAy yiCsRTTrlO7tUPCuKV2a CIEgvaIauj8vdqBqMMUl OCCmY0UlreardUmborHl CWYtxp9ktaCxGIX5VAAP AV4RVEKaCIUuq61hDEHq yTtyxV3mfUVrqiAgOGCj s4JhtK6vdBTLVLByN0kr KP5aMJwat6OjkSUweRMb mEK8CVMcn9NqOiYnjxNj iHJvuQOgR6VvwZzfC5hr YRSvDHSgjjYhgVBqm2Qq TUIczYX9uFMrRS7WSsNT r80jVUQfPYEHliMdDVEx xXxekIB8fqG7yP7wEmIW ZiBhcHBsaWNhYmxlLCBj y495lf1wipV7FJQdWPVp hmhvl2XxSCIfOGZiqJ11 MTNrYJKamb6vjtzefUUb tiRsH8Wuhbe6nT1aEVTr YWluXGYxXGZzMjJcbGFu ZzEwMzNcaGljaFxmMVxk EqGaCWRnEFkuR0dmEbUh ZnMyMlxwYXJ9 MD Shah
[2021-08-31 11:08] LABS: Absolute Lymphocytes (CBC) 1.2 K/uL (0.7-4.9); Basophils % 0.5 % (0-1.3); Hematocrit 43.2 % (39.6-49.0); MPV 8.3 fL (7.6-11.3)
[2021-08-31 11:15] LABS: Protime INR 1.02
[2021-08-31 11:27] LABS: ALT/SGPT 21 U/L (12-78); AST/SGOT 11 U/L (15-37); Albumin 3.3 g/dL (3.4-5.0); Alkaline Phosphatase 86 U/L (45-117); BUN Blood Urea Nitrogen 12 mg/dL (7-18); Bicarbonate 27 mmol/L (21-32); Bilirubin Direct 0.1 mg/dL (0-0.2); Bilirubin Total 0.5 mg/dL (0.2-1.0); Glucose Level 114 mg/dL (74-106); Magnesium 2.3 mg/dL (1.8-2.4); Potassium 4.1 mmol/L (3.5-5.1); Protein, Total 6.9 g/dL (6.4-8.2); Sodium Level 141 mmol/L (136-145); Troponin (Emerg Dept Use Only) < 0.02 ng/mL (0.0-0.045)
--- NOTE | 2021-08-31 13:14 | RAD REPORT ---
EXAM DESCRIPTION: CT - Abdomen Pelvis W Contrast - 08/31/2021 1:00 pm CLINICAL HISTORY: GI BLEED COMPARISON: Abdomen Pelvis W Contrast dated 10/25/2020 TECHNIQUE: Biphasic, helical CT imaging of the abdomen and pelvis was performed following 100 ml non -ionic IV contrast. No oral contrast was given. All CT scans are performed using dose optimization technique as appropriate and may include automated exposure control or mA/KV adjustment according to patient size. FINDINGS: No suspicious findings in the lung bases. Nodular contour to the liver has not changed. Small subcapsular cyst in the anterior midline left lob e also unchanged. No new liver parenchymal lesion identified. Gallbladder is absent. No biliary tree dilatation. Symmetric renal function is seen with no hydronephrosis or suspicious renal mass. No pyelonephritis o r acute parenchymal process. No bladder abnormalities. No adrenal abnormalities. Large prostate gland is present projecting into the bladder base. No gastric dilatation or gastric wall thickening seen. No acute small bowel finding. Prior examinatio n detailed masslike thickening near the ileocecal valve. This is again identified within area of dens e soft tissue 3.8 cm in size that could be a large mass or polyp at the ileocecal valve. There small clustered lymph nodes near the terminal ileum and ileocecal valve region. Collective findings are con cerning for colon malignancy with adjacent abnormal lymphadenopathy. No free air, free fluid or pneumatosis. No acute inflammatory stranding changes. No other area of rec carter thickening or mass identifiable. No bulky lymphadenopathy. No omental thickening. Degenerative changes are present without pathologic bone process confirmed. IMPRESSION: Suspected right-side colon mass at the ileocecal valve up to 3.8 cm in size. There are a bnormal pericolonic lymph nodes near the terminal ileum and ileocecal valve. No suspicious liver lesion. No omental thickening, ascites or other finding of intraperitoneal carcin omatosis.
--- NOTE | 2021-08-31 15:27 | EDPHYS ---
Physician Documentation [facility] Name: Carlton Nuñez III Age: 86 yrs Sex: Male : 1935 Arrival Date: 08/31/2021 Time: 09:37 Bed 15 Private MD: Adolfo Little V ED Physician Shad Shah HPI: 08/31 10:45 This 86 yrs old Male presents to ER via Ambulatory with complaints of Rectal Bleeding - cp stool. 10:45 The patient presents to the emergency department with bleeding from the rectum/anus, cp that is mild. Onset: The symptoms/episode began/occurred this morning. 10:45 Context: the patient 2 episodes of blood in stool with bowel mvements. Associate signs cp and symptoms: Pertinent negatives: abdominal pain, constipation, diarrhea, fever. Patient reports blood appeared red colored. Historical: - Allergies: 09:52 No Known Allergies; ww - Home Meds: 09:52 ferrous sulfate 325 mg (65 mg iron) Oral cpER [Active]; tamsulosin 0.4 mg oral cap 1 ww cap once daily [Active]; finasteride 1 mg oral tab [Active]; - PMHx: 09:52 enlarged prostate; Gi bleed; lung cancer; ww - PSHx: 09:52 thoracotomy; ww - Immunization history:: Flu vaccine is up to date. - Social history:: Smoking status: Patient/guardian denies using tobacco, the patient reports quitting approximately 45 years ago. ROS: 10:50 Constitutional: Negative for body aches, chills, fever, poor PO intake. cp 10:50 Eyes: Negative for injury, pain, redness, and discharge. cp 10:50 ENT: Negative for ear pain, sore throat, difficulty swallowing, difficulty handling secretions. 10:50 Cardiovascular: Negative for chest pain, edema, palpitations. 10:50 Respiratory: Negative for cough, shortness of breath, wheezing. 10:50 Abdomen/GI: Positive for rectal bleeding, Negative for abdominal pain, vomiting, diarrhea, constipation. 10:50 Back: Negative for pain at rest, pain with movement. 10:50 : Negative for urinary symptoms. 10:50 Neuro: Negative for altered mental status, headache, weakness. 10:50 All other systems are negative. cp Exam: 10:55 Constitutional: The patient appears in no acute distress, alert, awake, comfortable, cp non-toxic, well developed, well nourished. 10:55 Head/Face: Normocephalic, atraumatic. cp 10:55 Eyes: Periorbital structures: appear normal, Conjunctiva: normal, no exudate, no injection, Sclera: no appreciated abnormality, Lids and lashes: appear normal, bilaterally. 10:55 ENT: External ear(s): are unremarkable, Nose: is normal, Mouth: Lips: moist, Oral mucosa: moist, Posterior pharynx: Airway: no evidence of obstruction, patent. 10:55 Chest/axilla: Inspection: normal, Palpation: is normal, no crepitus, no tenderness. 10:55 Cardiovascular: Rate: normal, Rhythm: regular, Edema: is not appreciated, JVD: is not appreciated. 10:55 Respiratory: the patient does not display signs of respiratory distress, Respirations: normal, no use of accessory muscles, no retractions, labored breathing, is not present, Breath sounds: are clear throughout, no decreased breath sounds. 10:55 Abdomen/GI: Inspection: abdomen appears normal, Bowel sounds: active, all quadrants, Palpation: abdomen is soft and non-tender, in all quadrants, Rectal exam: Stool: brown, guaiac positive, hemorrhoid(s), external, without thrombosis. 10:55 Back: pain, is absent, ROM is normal. 10:55 Neuro: Orientation: to person, place \\T\\ time. Mentation: is normal, Motor: moves all fours, strength is normal, Sensation: is normal. 11:15 ECG was reviewed by the Attending Physician. cp Vital Signs: 09:46 BP 167 / 99; Pulse 93; Resp 18; Temp 97.6; Pulse Ox 100% on R/A; Weight 80.74 kg; ww Height 6 ft. 0 in. (182.88 cm); Pain 0/10; 14:48 BP 167 / 98; Pulse 74; Resp 18; Temp 97.6; Pulse Ox 100% ; Pain 0/10; ll1 09:46 Body Mass Index 24.14 (80.74 kg, 182.88 cm) ww MDM: 10:04 Patient medically screened. jazmin 11:00 Differential diagnosis: hemorrhoids, anemia, diverticulitis, electrolyte abnormality. cp 13:35 Data reviewed: vital signs, nurses notes, lab test result(s), radiologic studies, CT cp scan. 13:35 Test interpretation: by ED physician or midlevel provider: ECG. 17:00 Physician consultation: was contacted at 17:00, regarding regarding transfer, to [facility]. patient's condition, accepting physician will be DR Chery. 08/31 10:44 Order name: Basic Metabolic Panel; Complete Time: 11:33 08/31 11:33 Interpretation: Normal except: CL 108; GLUC 114; GFR 74. 08/31 10:44 Order name: CBC with Diff; Complete Time: 11:33 08/31 11:36 Interpretation: Normal except: MCV 90.1; PLT 133; RDW 16.6; JAN% 76.4; LYM% 14.0. 08/31 10:44 Order name: LFT's; Complete Time: 11:33 08/31 11:34 Interpretation: Normal except: AST 11; ALB 3.3; GLOB 3.6; A/G 0.9. 08/31 10:44 Order name: Magnesium; Complete Time: 11:33 08/31 10:44 Order name: PT-INR; Complete Time: 11:33 08/31 10:44 Order name: Troponin (emerg Dept Use Only); Complete Time: 11:33 08/31 10:44 Order name: EKG; Complete Time: 10:45 08/31 10:44 Order name: Cardiac monitoring; Complete Time: 11:14 08/31 10:44 Order name: EKG - Nurse/Tech; Complete Time: 11:14 08/31 10:44 Order name: Ptt, Activated; Complete Time: 11:33 08/31 11:36 Interpretation: Abnormal: PTT 37.5. 08/31 10:46 Order name: CT Abd/Pelvis - IV Contrast Only; Complete Time: 13:26 08/31 13:27 Interpretation: Report reviewed. 08/31 16:00 Order name: COVID-19 SARS RT PCR (Document "Date of Onset" if Symptomatic); Complete bd Time: 17:07 08/31 10:44 Order name: IV Saline Lock; Complete Time: 10:51 08/31 10:44 Order name: Labs collected and sent; Complete Time: 10:51 08/31 10:44 Order name: O2 Per Protocol; Complete Time: 10:51 cp 08/31 10:44 Order name: O2 Sat Monitoring; Complete Time: 10:51 cp EC:15 Rate is 81 beats/min. Rhythm is regular. [place] interval is normal. QRS interval is normal. cp QT interval is normal. T waves are Inverted in lead aVR. Interpreted by me. Reviewed by me. Administered Medications: 16:56 Drug: NS 0.9% 250 ml Route: IV; Rate: bolus; Site: right antecubital; ll1 17:28 Follow up: Response: No adverse reaction; IV Status: Completed infusion; IV Intake: ll1 250ml 19:11 Drug: NS 0.9% 1000 ml Route: IV; Rate: 75 ml/hr; Site: right hand; kd3 Disposition: 09/01 18:53 Co-signature as Attending Physician, Shad Shah MD I agree with the assessment and jazmin plan of care. Disposition Summary: 08/31/21 15:26 Transfer Ordered Transfer Location: Other Acute Care Facility cp Reason: Higher level of care cp Condition: Stable cp Problem: new cp Symptoms: have improved cp Accepting Physician: DR Chery(08/31/21 19:17) kd3 Diagnosis - GI Bleed/ Gastrointestinal hemorrhage, unspecified cp - Mass of Colon cp Forms: - Medication Reconciliation Form cp - SBAR form cp Signatures: Dispatcher [employer] Shad Mendez MD MD cha Page, Corey, PA PA cp Katelyn Garza RN RN ll1 Olena Swanson RN RN kd3 Lydia Putnam RN RN ww Corrections: (The following items were deleted from the chart) 08/31 15:57 15:26 Doctor cp cp 16:51 15:57 Doctor cp cp 19:17 16:51 DR Chery cp kd3 09/01 18:52 12 10:50 All other systems are negative, cp cp
--- NOTE | 2021-08-31 15:27 | ER ---
Nurse's Notes [facility] Name: Carlton Nuñez III Age: 86 yrs Sex: Male : 1935 Arrival Date: 08/31/2021 Time: 09:37 Bed 15 Private MD: Adolfo Little V Diagnosis: GI Bleed/ Gastrointestinal hemorrhage, unspecified;Mass of Colon Presentation: 08/31 09:46 Chief complaint:. Coronavirus screen: Vaccine status: Patient reports receiving the 2nd ww dose of the covid vaccine. Client denies travel out of the [place] in the last 14 days. Ebola Screen: Patient negative for fever greater than or equal to 101.5 degrees Fahrenheit, and additional compatible Ebola Virus Disease symptoms Patient denies exposure to infectious person. Patient denies travel to an Ebola-affected area in the 21 days before illness onset. Initial Sepsis Screen: Does the patient meet any 2 criteria? Does the patient have a suspected source of infection? No. Patient's initial sepsis screen is negative. Risk Assessment: Do you want to hurt yourself or someone else? Patient reports no desire to harm self or others. Onset of symptoms was August 31, 2021. 09:46 Method Of Arrival: Ambulatory ww 09:46 Acuity: ATUL 3 ww 09:55 Chief complaint: Patient states: Bleeding in stool and after wiping that started this ww morning. After his first bowel movement he developed loose stool. Had a GI bleed in 10/2020 and has been evaluated by GI and has a second opinion scheduled for next week at [facility]. Triage Assessment: 09:52 General: Appears in no apparent distress. comfortable, well groomed, well developed, ww well nourished, Behavior is calm, cooperative, appropriate for age. Pain: Denies pain. EENT: No deficits noted. No signs and/or symptoms were reported regarding the EENT system. Neuro: No deficits noted. Level of Consciousness is awake, alert, obeys commands, Oriented to person, place, time, situation, Appropriate for age Gait is steady, Speech is normal. Cardiovascular: No deficits noted. Denies chest pain, shortness of breath, Capillary refill < 3 seconds. Respiratory: No deficits noted. Airway is patent Respiratory effort is even, unlabored, Respiratory pattern is regular, symmetrical. GI: Reports diarrhea, bloody stool. : No deficits noted. Derm: No deficits noted. Skin is intact, Skin is pink, warm \T\ dry. Musculoskeletal: No deficits noted. No signs and/or symptoms reported regarding the musculoskeletal system. Historical: - Allergies: : No Known Allergies; ww - Home Meds: : ferrous sulfate 325 mg (65 mg iron) Oral cpER [Active]; tamsulosin 0.4 mg oral cap 1 ww cap once daily [Active]; finasteride 1 mg oral tab [Active]; - PMHx: : enlarged prostate; Gi bleed; lung cancer; ww - PSHx: : thoracotomy; ww - Immunization history:: Flu vaccine is up to date. - Social history:: Smoking status: Patient/guardian denies using tobacco, the patient reports quitting approximately 45 years ago. Screenin:34 Abuse screen: Denies threats or abuse. Nutritional screening: No deficits noted. ll1 Tuberculosis screening: No symptoms or risk factors identified. 11:46 Fall Risk IV access (20 points). Total Sheriff Fall Scale indicates No Risk (0-24 pts). ll1 Assessment: 10:50 Reassessment: No changes from previously documented assessment. Patient and/or family ll1 updated on plan of care and expected duration. Pain level reassessed. Patient is alert, oriented x 3, equal unlabored respirations, skin warm/dry/pink. 11:46 Reassessment: No changes from previously documented assessment. Patient and/or family ll1 updated on plan of care and expected duration. Pain level reassessed. Patient is alert, oriented x 3, equal unlabored respirations, skin warm/dry/pink. 12:45 Reassessment: No changes from previously documented assessment. Patient and/or family ll1 updated on plan of care and expected duration. Pain level reassessed. Patient is alert, oriented x 3, equal unlabored respirations, skin warm/dry/pink. 13:45 Reassessment: No changes from previously documented assessment. Patient and/or family ll1 updated on plan of care and expected duration. Pain level reassessed. Patient is alert, oriented x 3, equal unlabored respirations, skin warm/dry/pink. 14:45 Reassessment: No changes from previously documented assessment. Patient and/or family ll1 updated on plan of care and expected duration. Pain level reassessed. Patient is alert, oriented x 3, equal unlabored respirations, skin warm/dry/pink. 15:45 Reassessment: No changes from previously documented assessment. Patient and/or family ll1 updated on plan of care and expected duration. Pain level reassessed. Patient is alert, oriented x 3, equal unlabored respirations, skin warm/dry/pink. 16:45 Reassessment: No changes from previously documented assessment. Patient and/or family ll1 updated on plan of care and expected duration. Pain level reassessed. Patient is alert, oriented x 3, equal unlabored respirations, skin warm/dry/pink. 17:45 Reassessment: No changes from previously documented assessment. Patient and/or family ll1 updated on plan of care and expected duration. Pain level reassessed. Patient is alert, oriented x 3, equal unlabored respirations, skin warm/dry/pink. 18:45 Reassessment: No changes from previously documented assessment. Patient and/or family ll1 updated on plan of care and expected duration. Pain level reassessed. Patient is alert, oriented x 3, equal unlabored respirations, skin warm/dry/pink. Vital Signs: 09:46 BP 167 / 99; Pulse 93; Resp 18; Temp 97.6; Pulse Ox 100% on R/A; Weight 80.74 kg; ww Height 6 ft. 0 in. (182.88 cm); Pain 0/10; 14:48 BP 167 / 98; Pulse 74; Resp 18; Temp 97.6; Pulse Ox 100% ; Pain 0/10; ll1 09:46 Body Mass Index 24.14 (80.74 kg, 182.88 cm) ED Course: 09:37 Patient arrived in ED. am2 09:37 Adolfo Little MD is Private Physician. am2 09:50 Arm band placed on Patient placed in an exam room, on a stretcher. ll1 09:52 Triage completed. ww 10:00 Shad Abdullahi PA is PHCP. cp 10:00 Shad Shah MD is Attending Physician. cp 10:33 Katelyn Garza, SAFIA is Primary Nurse. ll1 10:34 Patient has correct armband on for positive identification. Bed in low position. Call ll1 light in reach. Side rails up X 1. 11:01 Inserted saline lock: 22 gauge in right antecubital area, using aseptic technique. ll1 Blood collected. 13:00 CT Abd/Pelvis - IV Contrast Only In Process Unspecified. EDMS 17:27 No provider procedures requiring assistance completed. Patient transferred, IV remains ll1 in place. Administered Medications: 16:56 Drug: NS 0.9% 250 ml Route: IV; Rate: bolus; Site: right antecubital; ll1 17:28 Follow up: Response: No adverse reaction; IV Status: Completed infusion; IV Intake: ll1 250ml 19:11 Drug: NS 0.9% 1000 ml Route: IV; Rate: 75 ml/hr; Site: right hand; kd3 Intake: 17:28 IV: 250ml; Total: 250ml. ll1 Outcome: 15:26 ER care complete, transfer ordered by . teddy 17:27 Transferred by ground EMS to [facility], Transfer form completed. ll1 X-rays sent w/ patient. 17:27 Condition: stable 17:27 Instructed on the need for transfer. 17:29 Transferred Note: Shira Alvarez RN. ll1 19:17 Patient left the ED. kd3 Signatures: Dispatcher [employer] EDMS Shad Abdullahi PA PA cp Kimber Martinez am2 Katelyn Garza RN RN ll1 Olena Swanson RN RN kd3 Lydia Putnam RN RN ww
[2021-08-31] MEDS ORDERED: NA CHLORIDE 0.9% 500 ML ONE (16:52)
[2021-08-31] MEDS ORDERED: NA CHLORIDE 0.9% 1,000 ML ONE (19:10)
[2021-08-31 19:43] VITALS: TEMP 97.6; O2SAT 100
[2021-08-31 19:45] VITALS: BP 167/98
--- NOTE | 2021-09-01 07:37 | EKG ---
Test Date: 2021-08-31 Test Time: 11:09:57 Telephone Messenger: JAYE MEASUREMENT RESULTS: Intervals: Rate: 81 VA: 152 QRSD: 92 QT: 374 QTc: 434 Cisco: P: 39 VA: 152 QRS: -7 T: 47 INTERPRETIVE STATEMENTS: Normal sinus rhythm Normal ECG Compared to ECG 08/29/2007 09:13:15 No significant changes Electronically Signed On 09-01-21 07:35:05 [employer] by Silver Grey
== END 2021-08-31 19:17 ==
LOC: ER 09:35
DX: D37.4 Neoplasm of uncertain behavior of colon (principal); Z20.822 Contact with and (suspected) exposure to COVID-19
CPT/HCPCS: 96365; 93005; 85025; 80048; 36415; 83735; 85610; 80076; 85730; 84484; 74177; 99285; U0003; Q9967; J7040; J7030

== ENCOUNTER 2023-01-08 09:15 | Emergency (ER) | payer OTHER ==
--- OUTSIDE RECORDS SUMMARY | 2023-01-08 09:18 | XMS REPORT | Clinical Summary ---
:1935 Author Organization [facility] Address [address] [place] [address] Care Team Providers Name Role Phone Emre Solomon MD Primary Care Provider Kenny Greer MD Unavailable Kenny Greer MD Unavailable Adolfo Little MD Unavailable [phone] Emre Solomon MD Unavailable Jessica Madrigal NP Unavailable Allergies No known active allergies Medications Medication Sig Dispensed Refills Start Date End Date Status CYANOCOBALAMIN/FOLIC Take 1 tablet by 0 Active ACID (VITAMIN mouth daily. [id number] ACID ORAL) multivitamin capsule Take 1 capsule by 0 Active mouth daily. ascorbic acid, Take 1,000 mg/mL by 0 Active vitamin C, (VITAMIN mouth daily. C) 1000 mg tablet [id number] Take 1 capsule by 0 Active h oil-D3 350 mg-400 mouth daily. mg- 1,000 unit cap tamsulosin (FLOMAX) Take 1 capsule (0.4 3 11/08/2016 Active 0.4 mg 24 hr capsule mg) by mouth daily. finasteride Take 1 tablet (5 mg) 0 Active (PROSCAR) 5 mg by mouth daily. tablet cholecalciferol, 0 09/12/2014 Ac tive vitamin D3, (D3-2000 ORAL) folic acid (FOLVITE) Take 1 tablet (1 mg) 0 Active 1 mg tablet by mouth daily. turmeric (CURCUMIN by miscellaneous 0 Active MISC) route daily. ferrous gluconate Take 325 mg by mouth 0 09/16/2022 Active (FERGON) 324 mg (38 daily. mg elemental iron per tablet) tablet Active Problems Problem Noted Date Anemia 12/11/2021 Diverticulosis of colon 12/11/2021 Malignant neoplasm of colon 12/11/2021 Overview: monitored by MD Shah- no treatment a t this time Benign prostatic hyperplasia without lower urinary tra ct symptom 08/31/2021 Adenocarcinoma of upper lobe of left lung 12/01/2016 Cancer Staging: Clinical: Unsigned Pathologic stage from 05/30/2018: Stage I A (T1a, N0, cM0) - Signed by Evelyn Wood NP on 05/30/2018 Last Assessment & Plan: Formatting of is note might be different from the original. Carlton Nuñez III is an 87-year-old male with a history of pT1aN0 adenocarcinoma of the left upper lobe, status post RATS, left upper lobe segmentectomy, and mediastinal lymph node dissection on 12/21/[address] Fuchs. He has since been foll owed with serial clinic visits and imaging and has been found to be without evidence of recurent or residual disease, and for this reason Carlton Nuñez III was tr ansitioned into the Thoracic [facility]. CT chest completed 12/11/22 shows new patc hy consolidative opacities, ground glass nodules on small solid nodules suspicious for infectious process. Subsolid nodules may represent atypical adenomatous hyperplasia-adenocarcinoma in situ. I will bring Carlton Nuñez III back in 6 months for a follow up Thoracic Survivorship clinical examination as well as CT Chest/Lung Surveillance Low Dose. 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 He has no obvious symptoms related to ly mphoma progression. He is very low risk for significant disease change with his indolent histology and no evidence radiographically on any prior scans of lymphoma . Recommend he have another chest abdome n pelvis CT in 12 months. Encounters Date Type Specialty Care Team Description 12/17/2022 Office Visit Thoracic Surgery Rohan, Adenocarcin bk of upper lobe of left lung (Primary Dx); MASTER Lopez Adenocarcinoma, NOS of upper lobe, lung <Left>; Encounter for f ollow-up examination after completed treatment for malignant neoplasm 12/17/2022 Travel 12/11/2022 Hospital Encounter Radiology Rohan, Adenocarc inoma, NOS of Jessica MASTER upper lobe, stephanie g <Left> 12/11/2022 Travel 03/09/2022 Telemedicine Thoracic Surgery Rohan, Adenocarcin bk of upper lobe of left lung (Primary Dx); MASTER Lopez Adenocarcinoma, NOS of upper lobe, lung <Left>; Encounter for f ollow-up examination after completed treatment for malignant neoplasm 03/06/2022 Hospital Encounter Radiology Rohan, Adenocarc inoma of upper lobe of left lung; MASTER Lopez Adenocarcinoma, NOS of upper lobe, lung <Left> 03/06/2022 Travel after 01/08/2022 Immunizations Name Administration Dates Next Due Influenza, Quadrivalent 05/02/2019 Moderna SARS-CoV-2 Vaccination 10/19/2020, 09/21/2020 Zoster, Unspecified 11/12/2018 Medical History Medical History Date Comments Cancer Social History Tobacco Use Types Packs/Day Years Used Date Smoking Tobacco: Former Smokeless Tobacco: Never Alcohol Use Standard Drinks/Week Comments No 0 (1 standard drink = 0.6 oz pure alcoho l) Sex Assigned at Date Recorded Male 10/29/2019 5:00 PM [employer] COVID-19 Exposure Response Date Recorded In the last 10 days, have you been in contact with No / Unsu re 12/17/2022 8:27 AM CDT someone who was confirmed or suspected to have Coronavirus/COVID-19? Obstetrics History Last Filed Vital Signs Vital Sign Reading Time Taken Comments Blood Pressure 128/82 12/17/2022 8:45 AM CDT Pulse 88 12/17/2022 8:45 AM CDT Temperature 36.9 C (98.4 F) 12/17/2022 8:45 AM CDT Respiratory Rate 17 12/17/2022 8:45 AM CDT Oxygen Saturation 98% 12/17/2022 8:45 AM CDT Inhaled Oxygen Concentration - - Weight 74.8 kg (164 lb 14.5 oz) 12/17/2022 8:40 AM CDT Height - - Body Mass Index 23.48 12/02/2016 9:48 AM CDT Plan of Treatment Date Type Specialty Care Team Description 06/18/2023 Appointment Radiology Maykel Madrigal, DRYING ROOM SUPERVISOR [address] [place], [place] [address] (Wo rk) 06/21/2023 Telemedicine Thoracic Surgery Dontae Madrigal NP [address] [place], [place] [address] (Wo rk) Health Maintenance Due Date Last Done Comments COVID-19 Vaccination (3 - Booster for 12/14/2020 10/19/2020 , 09/21/2020 Moderna series) Medical Devices Implanted Type Area Cognos Lead Device Shelf Model / Identifier Expiration Serial / Date Lot Tube Chest Straight 28fr - [id number] Implant Left: [employer] 10/05/2019 [id number] / Implanted: Qty: 1 on 12/20/2016 by Jose Fuchs MD at [facility] / [id number] Procedures Procedure Name Priority Date/Time Associated Comments Diagnosis CT CHEST/LUNG Routine 12/11/2022 11:41 Adenocarcinoma, NOS Res ults for this SURVEILLANCE LOW DOSE AM CDT of upper lobe, lung procedure are in <Left> the results section. CT CHEST WO CONTRAST Routine 03/06/2022 11:17 Adenocarcinoma, NOS Results for this AM CDT of upper lobe, lung procedur e are in <Left> the results Adenocarcinoma, NOS section. of upper lobe, lung <Left> after 01/08/[address] Chest/Lung Surveillance Low Dose (12/11/2022 11:41 AM CDT) Anatomical Region Laterality Modality Computed Tomography Specimen (Source) Anatomical Collection Method Collection Time Re ceived Time Location / / Volume Laterality 12/11/2022 12:01 PM CDT Impressions 12/11/2022 2:19 PM CDT There are new patchy consolidative opacities, ground glass nodules on small solid nodules suspicious for infectious process. Subsolid nodules may represent atypical adenomatous hyperplasia-adenocarcinoma in situ. Narrative 12/11/2022 2:19 PM CDT FULL RESULT: Examination: CT CHEST/LUNG SURVEILLANCE LOW DOSE, 12/11/2022 11:41 AM Clinical History: Adenocarcinoma, NOS of upper lobe, lung <Left> Indication: Multiple incidental pulmonar y nodules, Incidental pulmonary nodule, less than 6 mm, Incidental pulmonary nodule, solid appearing, No signs or symptoms of lung cancer, Lung adenocarcinoma, No iodinated contrast contraindication, In cidental pulmonary nodule, low risk, Survivorship Comparison: 03/06/2022 Technique: Spiral CT of the chest is per formed without intravenous contrast using low radiation dose technique. Findings: Postsurgical changes after left upper se gmentectomy. Bilateral bronchiectasis, bronchial wall thickening, tree-in-bud opacity, foci of bronchial impaction and peripheral subpleural scarring are again identified. 4 mm nodules in the right upper and middle lobes on images 39 and 112 are stable in size measuring 4 mm. There are new focal consolidative opacities in the right upper lobe on image 19 and in the middle lobe on image 127. In the left upper lobe on image 67 there is a new focal consoli dative opacity as well as on image 24. New groundglass nodules in the left lung on images 32 and 58. There are small subsolid nodules stable in size from recent studies images 33 and 39 (1.0 and 1.1 cm), on 06/01/2017, 0.8 and 0.9 cm. Stable small pleural effusion/pleural thickening in the left hemitho rax. No supraclavicular, mediastinal, hi lar or axillary adenopathy. There is a cyst in the liver. No focal l esions in the adrenal glands. There are degenerative changes of the spine. Posterior chest wall sebaceous cyst. Procedure Note Sofya Perkins MD - 12/12/19 23 FULL RESULT: Examination: CT CHEST/LUNG SURVEILLANCE LOW DOSE, 12/11/2022 11:41 AM Clinical History: Adenocarcinoma, NOS of upper lobe, lung <Left> Indication: Multiple incidental pulmonar y nodules, Incidental pulmonary nodule, less than 6 mm, Incidental pulmonary nodule, solid appearing, No signs or symptoms of lung cancer, Lung adenocarcinoma, No iodinated contrast contraindication, Incidental pu lmonary nodule, low risk, Survivorship Comparison: 03/06/2022 Technique: Spiral CT of the chest is per formed without intravenous contrast using low radiation dose technique. Findings: Postsurgical changes after left upper se gmentectomy. Bilateral bronchiectasis, bronchial wall thickening, tree-in-bud opacity, foci of bronchial impaction and peripheral subpleural scarring are again identified. 4 mm nodules in the right upper and middle lobes on images 39 and 112 are stable in size measuring 4 m m. There are new focal consolidative opacities in the right upper lobe on image 19 and in the middle lobe on image 127. In the left upper lobe on image 67 there is a new focal consolidative opacity as well as on image 24. New groundglass nodules in the left lung on images 32 and 58. There are small subsolid nodules stable in size from recent studies images 33 and 39 (1.0 and 1.1 cm), on 06/01/2017, 0.8 and 0.9 cm. Stable small pleural effusion/pleural thickening in the left hemithorax. No supraclavicular, mediastinal, hilar or a xillary adenopathy. There is a cyst in the liver. No focal l esions in the adrenal glands. There are degenerative changes of the spine. Posterior chest wall sebaceous cyst. IMPRESSION: There are new patchy consolidative opaci ties, ground glass nodules on small solid nodules suspicious for infectious process. Subsolid nodules may represent atypical adenomatous hyperplasia-adenocarcinoma in situ. Jessica Madrigal NP IMG CT ORDERABLES CT Chest without Contrast (03/06/2022 11:17 AM CDT) Anatomical Region Laterality Modality Chest Computed Tomography Specimen (Source) Anatomical Collection Method Collection Time Re ceived Time Location / / Volume Laterality 03/06/2022 11:27 AM CDT Impressions 03/06/2022 11:52 AM CDT Extensive multifocal postinflammatory ch anges related to airways disease appreciated. Stable scarring in the postoperative left upper lobe. Some increasing, reducing and new nodules are likely inflammat ory. There are, however, persistent long -standing subsolid nodules that may reflect adenocarcinoma precursor lesions, most notably in the right upper lobe and superior segment of left lower lobe. Narrative 03/06/2022 11:52 AM CDT FULL RESULT: Examination: CT CHEST WO CONTRAST, 2021 11:17 AM Clinical History: Adenocarcinoma, NOS of upper lobe, lung <Left> Indication: Incidental pulmonary nodule follow-up, Multiple incidental pulmonary nodules, Incidental pulmonary nodule, 6-8 mm, Incidental pulmonary nodule, solid appearing, Incidental pulmonary nodule with high-risk exposure, Survivorship Comparison: 12/11/2021 Technique: CT of the chest was performed without intravenous contrast. Findings: Stable left upper lobe scarring related to prior segmentectomy. Extensive small airway bronchiectasis, b ronchial wall thickening, tree-in-bud opacity, foci of bronchial impaction and peripheral subpleural presumed postinflammatory scarring are again appreciated bilaterally. A new 7 mm nodule described on the prior study in the right upper lobe has nearly completely resolved (image 84). 2 smaller nodules measuring up to 4 mm are slightly larger (images 63, 117), and there i s a new left upper lobe 5 mm nodule pres ent (image 43). These may all be inflammatory. There are persistent other small groundg lass and subsolid nodules largest in the right upper lobe (image 34, groundglass 10 mm) and left lower lobe (image 39, and part solid 11 mm). These have been pres ent for several years, not overtly progr essive from 2021 studies but gradually progressive in size and density from more remote studies. No supraclavicular or axillary adenopath y. No mediastinal or hilar adenopathy allowing for the absence of intravenous contrast. Stable left posterior minor pleural thic kening, no significant pleural fluid. Normal cardiac size; moderate coronary c alcifications are present. Ectasia of the descending thoracic aorta noted. Stable suspected cysts in left liver lob e. Prior cholecystectomy. Normal adrenals. Subcutaneous nodule in the left posterio r upper midline measures 1.3 x 0.8 cm. This has gradually slightly increased from prior studies and is hyperdense, whereas an abnormality in this region in 2016 w as more typically cystic/sebaceous cystl owen. Correlation with ultrasound advised as clinically appropriate. No suspected aggressive osseous lesions. Small foci of vertebral sclerosis (images 14, 33, 75) are stable from 2020. Procedure Note Akash Wilde MD - 03/06/2022Formatti ng of this note might be different from the original. FULL RESULT: Examination: CT CHEST WO CONTRAST, 2021 11:17 AM Clinical History: Adenocarcinoma, NOS of upper lobe, lung <Left> Indication: Incidental pulmonary nodule follow-up, Multiple incidental pulmonary nodules, Incidental pulmonary nodule, 6-8 mm, Incidental pulmonary nodule, solid appearing, Incidental pulmonary nodule with high-risk exposure, Survivorship Comparison: 12/11/2021 Technique: CT of the chest was performed without intravenous contrast. Findings: Stable left upper lobe scarring related to prior segmentectomy. Extensive small airway bronchiectasis, b ronchial wall thickening, tree-in-bud opacity, foci of bronchial impaction and peripheral subpleural presumed postinflammatory scarring are again appreciated bilaterally. A new 7 mm nodule described on the prior study in the right upper lobe has nearly completely resolved (image 84). 2 smaller nodules measuring up to 4 mm are slightly larger (images 63, 117), and there is a new left upper lobe 5 mm nodule present (image 43). The se may all be inflammatory. There are persistent other small groundg lass and subsolid nodules largest in the right upper lobe (image 34, groundglass 10 mm) and left lower lobe (image 39, and part solid 11 mm). These have been present for several years, not overtly progressive from 2021 studies but gradually progressive in size and density from more remote studies. No supraclavicular or axillary adenopath y. No mediastinal or hilar adenopathy allowing for the absence of intravenous contrast. Stable left posterior minor pleural thic kening, no significant pleural fluid. Normal cardiac size; moderate coronary c alcifications are present. Ectasia of the descending thoracic aorta noted. Stable suspected cysts in left liver lob e. Prior cholecystectomy. Normal adrenals. Subcutaneous nodule in the left posterio r upper midline measures 1.3 x 0.8 cm. This has gradually slightly increased from prior studies and is hyperdense, whereas an abnormality in this region in 2016 was more typically cystic/sebaceous cystlike. Cor relation with ultrasound advised as clinically appropriate. No suspected aggressive osseous lesions. Small foci of vertebral sclerosis (images 14, 33, 75) are stable from 2020. IMPRESSION: Extensive multifocal postinflammatory ch anges related to airways disease appreciated. Stable scarring in the postoperative left upper lobe. Some increasing, reducing and new nodules are likely inflammatory. There are, however, persistent long-standing subsol id nodules that may reflect adenocarcinoma precursor lesions, most notably in the right upper lobe and superior segment of left lower lobe. 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 on Advance Directives: 12/22/2016 Directive to Physicians Living Will and Family or Surrogates-Marsha ga Will Advance Directives: 12/22/2016 Medical Evie r of [employer]opter Utility [employer]cre[employer] Medical Power of [employer]icopter Utility [employer] Code Status Date Activated Date Inactivated Comments Full Code 12/20/2016 4:10 PM 12/23/2016 4:50 PM Care Teams Yacht Master Relationship Specialty Start Date End Date Emre Solomon MD PCP - General 11/12/[address] [place] [id number] Kenny Greer MD PCP - External Referring 07/26/[address] [place] [address] Kenny Greer MD PCP - External Follow Up A 07/26/[address] [place] [address] Adolfo Little PCP - External Follow Up B 08/12/14 MD Naty [address] [place] [id number] Emre Solomon MD Physician 11/19/[address] [place] [id number] Jessica Madrigal, MASTER Nurse Practitioner Thoracic Surgery 12/10/21 [address] [place] [address]
--- OUTSIDE RECORDS SUMMARY | 2023-01-08 09:20 | XMS REPORT | Continuity of Care Document ---
:1935 Author Organization [facility] t Address [address] [place] [address] Care Team Providers Name Role Phone BEATRICE GARIBAY Primary [facility] Phys[facility], PROVIDER NOT IN Attending Clinician Unavailable KIMANI CHARLES Attending Clinician Unavailable Tone Greer MD Attending Clinician Pamela Hinkle MD Attending Clinician Tanna Mckeon Attending Clinician Tim Madrigal NP Attending Clinician TIM MADRIGAL Attending Clinician Unavailable BRADLEY CALDWELL Attending Clinician Unavailable TAYE DOTY Attending Clinician Unavailable KAREN SOTO Attending Clinician Unavailable Only, Adc Test Attending Clinician Unavailable Saundra Olson Attending Clinician SAUNDRA WOODARD Attending Clinician Unavailable Doctor Unassigned, [place] [facility] Attending Clinician Unavailable ISIS MURPHY Attending Clinician Unavailable CINTHIA CLINE Attending Clinician Unavailable KEHINDE FUCHS Attending Clinician Unavailable TONE GREER Admitting Clinician Unavailable PARISH CLEMENT Admitting Clinician Unavailable Payers Payer Name Policy Type Policy Number Effective Date Expiration Date S caterina AETNA MEDICARE PPO [id number] 2013 00:00:00 AETNA MEDICARE O [id number] 2020 POS PPO 00:00:00 Problems Condition Condition Condition Status Onset Resolution Last Treating Co mments Source Name Details Category Date Date Treatment Clinician Date Chronic Chronic Disease Active Methodi blood loss blood loss 4-24 st anemia anemia 00:00: Hospita 00 l Weight Weight Disease Active Methodi loss loss 4-24 st 00:00: Hospita 00 l Anemia Anemia Disease Active Univers 4 ity of 00:00: [place] 00 MD [facility] Diverticul Diverticul Disease Active U nivers osis of osis of 12-11 ity of colon colon 00:00: [place] 00 MD [facility] Malignant Malignant Disease Active Overview: Univers neoplasm neoplasm 12-11 Formattin ity of of colon of colon 00:00: g of this Aniket as 00 note MD might be [facility]rell from the Cancer original. Center monitored by MD Shah- no treatment at this time Benign Benign Disease Active 2020-09 Univers prostatic prostatic 2-20 ity of hyperplasi [place]plasi [place] without a without 00 lower lower Anders[place] urinary urinary n tract tract Cancer symptom symptom Center Benign Benign Disease Active 2020-[address] prostatic prostatic 2-20 [facility] hyperplasi hyperplasi 00:00: Me dical a without a without 00 Cent er lower lower urinary urinary tract tract symptoms symptoms Hematochez Hematochez Disease Active [facility] Blood in Blood in Disease Active Metho di stool stool 3-08 st 00:00: Hospita 00 l Atrial Atrial Disease Active Methodi tachycardi tachycardi 4-12 st a a 00:00: Hospita 00 l Primary Primary Disease Active Methodi malignant malignant 4-10 st neoplasm neoplasm 00:00: Hospit a of left of left 00 l upper lobe upper lobe of lung of lung Adenocarci Adenocarci Disease Active Last U nivers noma of noma of 3-22 Assessmen ity o f upper lobe upper lobe 00:00: t & Plan: [place] of left of left 00 Sebastian KLEIN lung lung g of this Anderso note n might be Cancer different Center from the original. 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 Fuchs. He has since been followed with serial clinic visits and imaging and has been found to be without evidence of recurent or residual disease, and for this reason Carlton Nuñez III was transitio [facility]ory [facility].CT chest completed 12/11/22 shows new patchy consolida tive opacities , ground glass nodules on small solid nodules suspiciou s for infectiou s process. Subsolid nodules may represent atypical adenomato us hyperplas ia-adenoc arcinoma in situ.I will bring Carlton Nuñez III back in 6 months for a follow up [facility] examinati on as well as CT Chest/Sofia g Surveilla nce Low Dose. 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 Last Assessmen t & Plan: Thickenin g of cecum is atypical and could be consisten t with lymphoma, but is causing no symptoms and labs are normal. We recommend direct visualiza tion of the cecum with repeat colonosco py. If abnormal consisten t with marginal zone lymphoma, we would reimage in 6 months and consider therapy if progressi ve. If colonosco py is normal, we would not continual ly image unless symptoms. Note the patient does not have a history of high-grad e lymphoma. The below diagnosis is a computer malfuncti on Primary Primary Problem Active 2021-05-03 Me moria malignant malignant 09-12 07:00:43 l neoplasm neoplasm 00:00: Jerardo farrell of lung of lung 00 (disorder) (disorder) Active 09/12/2016 Problem 05/03/2021 states that he had a biopsy and a laporoscop y for removal of the tumor. Monitored by Oncologist at [facility]. 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) (chronic) 05/01/2021 05/03/2021 [facility] Allergies, Adverse Reactions, Alerts Allergy Allergy Status Severity Reaction(s) Onset Inactive Treating Comm ents Source Name Type Date Date Clinician NO KNOWN Drug [facility] NO KNOWN Allergy Active [facility] Social History Social Habit Start Date Stop Date Quantity Comments Source Gender identity 2020-11-11 Identifies as male M ethodist 11:26:44 gender (finding) Hospital Sexual orientation 2020-11-11 Heterosexual Meth odist 11:26:44 (finding) Hospital Alcohol intake 2023-01-04 2023-01-04 Current drinker of Me thodist 00:00:00 00:00:00 alcohol (finding) Hospita l History of Social 2023-01-04 2023-01-[address] function 00:00:00 00:00:00 Hospital Cigarettes smoked 2023-01-03 2023-01-[address] current (pack per 00:00:00 00:00:00 Hospita l day) - Reported Cigarette 2023-01-03 2023-01-03 Uatsdin pack-years 00:00:00 00:00:00 Hospital Tobacco use and 2023-01-03 2023-01-03 Smokeless tobacco Me thodist exposure 00:00:00 00:00:00 non-user Hospital Exposure to 2022-12-07 2022-12-17 Not sure University of SARS-CoV-2 (event) 00:00:00 08:27:00 [place] MD Shah [facility] Tobacco Comment 2021-09-02 2021-09-02 quit 45 yrs ago VERO Díaz 00:00:00 00:00:00 [facility] Alcohol Comment 2020-11-17 2020-11-17 1 glass wine/day Met harvinder 00:00:00 00:00:00 Hospital History of tobacco 1972-02-15 Cigarette Smoker Uatsdin use 00:00:00 Hospital Sex Assigned At [birth year] VERO Bahenas 00:00:00 00:00:00 [facility] Smoking Status Start Date Stop Date Source Unknown if ever smoked [facility] Social History 2021-04-30 14:41:18 2021-04-30 14:41:18 [facility] Medications Ordered Filled Start Stop Current Ordering Indication Dosage Frequency Signature Comments Components Source Medication Medication Date Date Medication? Clinician (SIG) Name Name finasteride Yes 5mg Take 1 Meth ori (PROSCAR) 5 4-25 tablet (5 st mg tablet 12:10: mg total) Hos steffen 01 by mouth. l folic acid 0 Yes 1mg Take 1 Metho di (FOLVITE) 1 4-25 tablet (1 st MG tablet 12:10: mg total) Hos steffen 01 by mouth. l ascorbic 2022-0 Yes 1000mg QD Take 1 Metho di acid, 4-[address] vitamin C, 12:10: (1,000 mg Ho spita (VITAMIN C) 13 total) by l 1000 MG mouth tablet daily. cholecalcif 0 Yes 2000U QD Take 1 Met hodi cintia, 4-[address] vitamin D3, 12:10: (2,000 Hosp henrry (VITAMIN 13 Units l D3) 2,000 total) by unit mouth capsule daily. capsule cyanocobala 2022-0 Yes 1000ug QD Take 1 Me thodi min 1000 4-[address] MCG tablet 12:10: (1,000 mcg H ospita 13 total) by l mouth daily. levocetiriz 2022-0 Yes 5mg QD Take 1 Meth ori ine (XYZAL) 4-13 tablet (5 st 5 MG tablet 00:00: mg total) H ospita 00 by mouth l nightly. CYANOCOBALA Yes 1{tbl} Take 1 Un nohemy MIN/FOLIC 4-07 tablet by ity o f ACID 08:54: mouth [place] (VITAMIN 45 daily. [id number] Anderso ACID ORAL) n [facility] multivitami Yes 1{capsu Take 1 U nivers n capsule 4-07 le} capsule by ity of 08:54: mouth [place] 45 daily. MD Mary Ann farrell [facility] ascorbic Yes 1000mg/ Take 1,000 Univers acid, 4-07 mL mg/mL by ity of vitamin C, 08:54: mouth [place] (VITAMIN C) 45 daily. 1000 mg [place] tablet [facility] omega-3s-dh Yes 1{capsu Take 1 U nivers a-epa-fish - le} capsule by ity of oil-D3 350 08:54: mouth [place] mg-400 mg- 45 daily. 1,000 unit Mary Ann cap [facility] finasteride Yes 5mg Take 1 Univ ers (PROSCAR) 5 4-07 tablet (5 ity of mg tablet 08:54: mg) by [place] 45 mouth [facility]. [facility] f[facility] Yes 1mg Take 1 Unive rs (FOLVITE) 1 4-07 tablet (1 ity of mg tablet 08:54: mg) by [place] 45 mouth [facility]. [facility] turmeric Yes by Univers (CURCUMIN 4-07 miscellane ity of MISC) 08:54: ous route [place] 45 daily. MD Mary Ann farrell [facility] ferrous Yes TAKE 1 Methodi gluconate 4-[address] (FERGON) 00:00: MOUTH Hospita 324 MG 00 DAILY WITH l tablet WATER OR JUICE BETWEEN MEALS ferrous Yes 325mg Take 325 Unive rs gluconate 1-05 mg by ity of (FERGON) 00:00: mouth [place] 324 mg (38 00 daily. MD mg Reese elemental bud iron per Cancer tablet) Center tablet cyanocobala 2020-09 Yes 1000ug Take 1,[address] [facility] min, 2-23 mcg by [facility] vitamin 13:34: mouth. Medical B-12, 1000 00 Center MCG tablet finasteride 2020-09 Yes 5mg Take [address] (PROSCAR) 5 2-23 by mouth. [place] es mg tablet 13:34: Medical 00 [place] folic acid 2020-09 Yes 1mg Take [address] (FOLVITE) 1 2-23 by mouth. [place] es MG tablet 13:34: Medical 00 [place] cholecalcif 2020-09 Yes 2000U Take 2,[address] cintia, 2-23 Units by [place] vitamin D3, 13:34: mouth. Medi jerry 50 mcg 00 Center (2,000 unit) Cap ascorbic 2020-09 Yes 1000mg/ Take 1,[address] acid, 2-23 mL mg/mL by [place] vitamin C, 13:34: mouth. Medic al (VITAMIN C) 00 Center 1000 MG tablet ferrous 2020-09 Yes 325mg Take 325 [facility] S t sulfate 325 2-23 mg by [place] (65 FE) MG 13:34: mouth Medica l EC tablet 00 daily with Cent er breakfast. tamsulosin 2020-09 Yes .4mg QD Take 0.[address] (FLOMAX) 2-23 mg by [facility] 0.4 mg Cap 13:34: mouth Medica l 24 hr 00 daily. [place] capsule LR 1,000 mL Yes 1,000 mL, M emoria 8-20 IV, 75 l 18:31: mL/hr, start date 05/01/21 13:31:00 CDT, 2.05, m2 Saline Lock Yes 10 mL, Mark krupa Flush 8-20 Soln, IV l 18:31: Push, As Indicated PRN for flush, first dose 05/01/21 13:31:00 CDT LR 1,000 mL Yes 1,000 mL, M emoria 8-20 IV, 75 l 18:31: mL/hr, start date 05/01/21 13:31:00 CDT, 2.05, m2 Saline Lock Yes 10 mL, Mark krupa Flush 8-20 Soln, IV l 18:31: Push, As Indicated PRN for flush, first dose 05/01/21 13:31:00 CDT LR 1,000 mL Yes 1,000 mL, M emoria 8-20 IV, 75 l 18:31: mL/hr, start date 05/01/21 13:31:00 CDT, 2.05, m2 Saline Lock Yes 10 mL, Mark krupa Flush 8-20 Soln, IV l 18:31: Push, As Indicated PRN for flush, first dose 05/01/21 13:31:00 CDT LR 1,000 mL Yes 1,000 mL, M emoria 8-20 IV, 75 l 18:31: mL/hr, start date 05/01/21 13:31:00 CDT, 2.05, m2 Saline Lock Yes 10 mL, Mark krupa Flush 8-20 Soln, IV l 18:31: Push, As Indicated PRN for flush, first dose 05/01/21 13:31:00 CDT LR 1,000 mL Yes 1,000 mL, M emoria 8-20 IV, 75 l 18:31: mL/hr, start date 05/01/21 13:31:00 CDT, 2.05, m2 Saline Lock Yes 10 mL, Mark krupa Flush 8-20 Soln, IV l 18:31: Push, As Indicated PRN for flush, first dose 05/01/21 13:31:00 CDT [facility] 2020-0 No 700 mL, Memoria Medication 8-20 Soln-IV, l 18:28: IV, Once, first dose 05/01/21 13:28:00 CDT, stop date 05/01/21 13:28:00 CDT [facility] 2020-0 No 700 mL, Memoria Medication 8-20 Soln-IV, l 18:28: IV, Once, first dose 05/01/21 13:28:00 CDT, stop date 05/01/21 13:28:00 CDT [facility] 2020-0 No 700 mL, Memoria Medication 8-20 Soln-IV, l 18:28: IV, Once, first dose 05/01/21 13:28:00 CDT, stop date 05/01/21 13:28:00 CDT Misc 1-0 No 700 mL, Memoria Medication 8-20 Soln-IV, l 18:28: IV, Once, Wm 00 first dose 05/01/21 13:28:00 CDT, stop date 05/01/21 13:28:00 CDT Misc 1-0 No 700 mL, Memoria Medication 8-20 Soln-IV, l 18:28: IV, Once, Wm 00 first dose 05/01/21 13:28:00 CDT, stop date 05/01/21 13:28:00 CDT propofol 1-0 No 50 mg = 5 Mark krupa 8-20 mL, l 18:18: Emulsion, Gary 00 IV, Once, first dose 05/01/21 13:18:00 CDT, stop date 05/01/21 13:18:00 CDT propofol 1-0 No 50 mg = 5 Mark krupa 8-20 mL, l 18:18: Emulsion, Gary 00 IV, Once, first dose 05/01/21 13:18:00 CDT, stop date 05/01/21 13:18:00 CDT propofol 1-0 No 50 mg = 5 Mark krupa 8-20 mL, l 18:18: Emulsion, Gary 00 IV, Once, first dose 05/01/21 13:18:00 CDT, stop date 05/01/21 13:18:00 CDT propofol 1-0 No 50 mg = 5 Mark krupa 8-20 mL, l 18:18: Emulsion, Gary 00 IV, Once, first dose 05/01/21 13:18:00 CDT, stop date 05/01/21 13:18:00 CDT propofol 1-0 No 50 mg = 5 Mark krupa 8-20 mL, l 18:18: Emulsion, Gary 00 IV, Once, first dose 05/01/21 13:18:00 CDT, stop date 05/01/21 13:18:00 CDT propofol 2021-0 No 50 mg = 5 Mark krupa 8-20 mL, l 18:14: Emulsion, Wm 00 IV, Once, first dose 05/01/21 13:14:00 CDT, stop date 05/01/21 13:14:00 CDT propofol 2021-0 No 50 mg = 5 Mark krupa 8-20 mL, l 18:14: Emulsion, Wm 00 IV, Once, first dose 05/01/21 13:14:00 CDT, stop date 05/01/21 13:14:00 CDT propofol 2021-0 No 50 mg = 5 Mark krupa 8-20 mL, l 18:14: Emulsion, Gary 00 IV, Once, first dose 05/01/21 13:14:00 CDT, stop date 05/01/21 13:14:00 CDT propofol 2021-0 No 50 mg = 5 Mark krupa 8-20 mL, l 18:14: Emulsion, Wm 00 IV, Once, first dose 05/01/21 13:14:00 CDT, stop date 05/01/21 13:14:00 CDT propofol 2021-0 No 50 mg = 5 Mark krupa 8-20 mL, l 18:14: Emulsion, Gary 00 IV, Once, first dose 05/01/21 13:14:00 CDT, stop date 05/01/21 13:14:00 CDT lidocaine 2021-0 No 100 mg = 5 Me moria 8-20 mL, l 18:10: Injection, Gary 00 IV, Once, first dose 05/01/21 13:10:00 CDT, stop date 05/01/21 13:10:00 CDT propofol 2021-0 No 50 mg = 5 Mark krupa 8-20 mL, l 18:10: Emulsion, Wm 00 IV, Once, first dose 05/01/21 13:10:00 CDT, stop date 05/01/21 13:10:00 CDT lidocaine 2021-0 No 100 mg = 5 Me moria 8-20 mL, l 18:10: Injection, Wm 00 IV, Once, first dose 05/01/21 13:10:00 CDT, stop date 05/01/21 13:10:00 CDT propofol 2021-0 No 50 mg = 5 Mark krupa 8-20 mL, l 18:10: Emulsion, Gary 00 IV, Once, first dose 05/01/21 13:10:00 CDT, stop date 05/01/21 13:10:00 CDT lidocaine 2021-0 No 100 mg = 5 Me moria 8-20 mL, l 18:10: Injection, Gary 00 IV, Once, first dose 05/01/21 13:10:00 CDT, stop date 05/01/21 13:10:00 CDT propofol 2020-0 No 50 mg = 5 Mark krupa 8-20 mL, l 18:10: Emulsion, Wm 00 IV, Once, first dose 05/01/21 13:10:00 CDT, stop date 05/01/21 13:10:00 CDT lidocaine 2020-0 No 100 mg = 5 Me moria 8-20 mL, l 18:10: Injection, Gary 00 IV, Once, first dose 05/01/21 13:10:00 CDT, stop date 05/01/21 13:10:00 CDT propofol 2020-0 No 50 mg = 5 Mark krupa 8-20 mL, l 18:10: Emulsion, Gary 00 IV, Once, first dose 05/01/21 13:10:00 CDT, stop date 05/01/21 13:10:00 CDT lidocaine 2020-0 No 100 mg = 5 Me moria 8-20 mL, l 18:10: Injection, Wm 00 IV, Once, first dose 05/01/21 13:10:00 CDT, stop date 05/01/21 13:10:00 CDT propofol 2020-0 No 50 mg = 5 Mark krupa 8-20 mL, l 18:10: Emulsion, Wm 00 IV, Once, first dose 05/01/21 13:10:00 CDT, stop date 05/01/21 13:10:00 CDT fentaNYL 2020-0 No 25 mcg = Memor ia 8-20 0.5 mL, l 18:05: Injection, Wm 00 IV, Once, first dose 05/01/21 13:05:00 CDT, stop date 05/01/21 13:05:00 CDT glycopyrrol 2020-0 No 0.2 mg = 1 Memoria ate 8-20 mL, l 18:05: Injection, Wm 00 IV, Once, first dose 05/01/21 13:05:00 CDT, stop date 05/01/21 13:05:00 CDT benzocaine/ 2020-0 No 1 concetta, Mark krupa butamben/te 8-20 Soln, TOP, l tracaine 18:05: Once, Gary topical 00 first dose 05/01/21 13:05:00 CDT, stop date 05/01/21 13:05:00 CDT fentaNYL 2021-0 No 25 mcg = Memor ia 8-20 0.5 mL, l 18:05: Injection, Gary 00 IV, Once, first dose 05/01/21 13:05:00 CDT, stop date 05/01/21 13:05:00 CDT glycopyrrol 2021-0 No 0.2 mg = 1 Memoria ate 8-20 mL, l 18:05: Injection, Gary 00 IV, Once, first dose 05/01/21 13:05:00 CDT, stop date 05/01/21 13:05:00 CDT benzocaine/ 2021-0 No 1 concetta, Mark krupa butamben/te 8-20 Soln, TOP, l tracaine 18:05: Once, Wm topical 00 first dose 05/01/21 13:05:00 CDT, stop date 05/01/21 13:05:00 CDT fentaNYL 1-0 No 25 mcg = Memor ia 8-20 0.5 mL, l 18:05: Injection, Wm 00 IV, Once, first dose 05/01/21 13:05:00 CDT, stop date 05/01/21 13:05:00 CDT glycopyrrol 1-0 No 0.2 mg = 1 Memoria ate 8-20 mL, l 18:05: Injection, Gary 00 IV, Once, first dose 05/01/21 13:05:00 CDT, stop date 05/01/21 13:05:00 CDT benzocaine/ 2021-0 No 1 concetta, Mark krupa butamben/te 8-20 Soln, TOP, l tracaine 18:05: Once, Gary topical 00 first dose 05/01/21 13:05:00 CDT, stop date 05/01/21 13:05:00 CDT fentaNYL 1-0 No 25 mcg = Memor ia 8-20 0.5 mL, l 18:05: Injection, Wm 00 IV, Once, first dose 05/01/21 13:05:00 CDT, stop date 05/01/21 13:05:00 CDT glycopyrrol 2020-0 No 0.2 mg = 1 Memoria ate 8-20 mL, l 18:05: Injection, Gary 00 IV, Once, first dose 05/01/21 13:05:00 CDT, stop date 05/01/21 13:05:00 CDT benzocaine/ 2020-0 No 1 conectta, Mark krupa butamben/te 8-20 Soln, TOP, l tracaine 18:05: Once, Gary topical 00 first dose 05/01/21 13:05:00 CDT, stop date 05/01/21 13:05:00 CDT fentaNYL 2020-0 No 25 mcg = Memor ia 8-20 0.5 mL, l 18:05: Injection, Wm 00 IV, Once, first dose 05/01/21 13:05:00 CDT, stop date 05/01/21 13:05:00 CDT glycopyrrol 2020-0 No 0.2 mg = 1 Memoria ate 8-20 mL, l 18:05: Injection, Gary 00 IV, Once, first dose 05/01/21 13:05:00 CDT, stop date 05/01/21 13:05:00 CDT benzocaine/ 2020-0 No 1 concetta, Mark krupa butamben/te 8-20 Soln, TOP, l tracaine 18:05: Once, Wm topical 00 first dose 05/01/21 13:05:00 CDT, stop date 05/01/21 13:05:00 CDT LR 1,000 mL 2020-0 No 1,000 mL, M emoria 8-20 IV, 30 l 16:34: mL/hr, Gary 00 start date 05/01/21 11:34:00 CDT, 2.05, m2 Lidocaine 2020-0 No 0.2 mL, Memor ia 2% 0.2 mL 8-20 Injection, l IV Start 16:34: Subcutaneo [facility] [[facility]] 00 us, Once PRN for other (see comment), first dose 05/01/21 11:34:00 CDT LR 1,000 mL 2020-0 No 1,000 mL, M emoria 8-20 IV, 30 l 16:34: mL/hr, Wm start date 05/01/21 11:34:00 CDT, 2.05, m2 Lidocaine 1-0 No 0.2 mL, Memor ia 2% 0.2 mL 8-20 Injection, l IV Start 16:34: Subcutaneo [facility] us, Once PRN for other (see comment), first dose 05/01/21 11:34:00 CDT LR 1,000 mL 2020-0 No 1,000 mL, M emoria 8-20 IV, 30 l 16:34: mL/hr, start date 05/01/21 11:34:00 CDT, 2.05, m2 Lidocaine 2020-0 No 0.2 mL, Memor ia 2% 0.2 mL 8-20 Injection, l IV Start 16:34: Subcutaneo [facility] [[facility]] us, Once PRN for other (see comment), first dose 05/01/21 11:34:00 CDT LR 1,000 mL 2020-0 No 1,000 mL, M emoria 8-20 IV, 30 l 16:34: mL/hr, start date 05/01/21 11:34:00 CDT, 2.05, m2 Lidocaine 2020-0 No 0.2 mL, Memor ia 2% 0.2 mL 8-20 Injection, l IV Start 16:34: Subcutaneo [facility] [[facility]] us, Once PRN for other (see comment), first dose 05/01/21 11:34:00 CDT LR 1,000 mL 2020-0 No 1,000 mL, M emoria 8-20 IV, 30 l 16:34: mL/hr, start date 05/01/21 11:34:00 CDT, 2.05, m2 Lidocaine 2020-0 No 0.2 mL, Memor ia 2% 0.2 mL 8-20 Injection, l IV Start 16:34: Subcutaneo [facility] [[place]] us, Once PRN for other (see comment), first dose 05/01/21 11:34:00 CDT tamsulosin 2020-0 Yes 0.4 mg = 1 M emoria 0.4 mg oral 8-19 caps, l capsule 14:25: Oral, Wm 00 Daily, 0 Refill(s), BPH finasteride 2020-0 Yes 5 mg = 1 Me moria 5 mg oral 8-19 tabs, l tablet 14:25: Oral, Gary 00 Daily, 0 Refill(s), BPH tamsulosin 1-0 Yes 0.4 mg = 1 M emoria 0.4 mg oral 8-19 caps, l capsule 14:25: Oral, Wm 00 Daily, 0 Refill(s), BPH finasteride 2020-0 Yes 5 mg = 1 Me moria 5 mg oral 8-19 tabs, l tablet 14:25: Oral, Gary 00 Daily, 0 Refill(s), BPH tamsulosin 2020-0 Yes 0.4 mg = 1 M emoria 0.4 mg oral 8-19 caps, l capsule 14:25: Oral, Gary 00 Daily, 0 Refill(s), BPH finasteride 2020-0 Yes 5 mg = 1 Me moria 5 mg oral 8-19 tabs, l tablet 14:25: Oral, Wm 00 Daily, 0 Refill(s), BPH tamsulosin 2020-0 Yes 0.4 mg = 1 M emoria 0.4 mg oral 8-19 caps, l capsule 14:25: Oral, Gary 00 Daily, 0 Refill(s), BPH finasteride 2020-0 Yes 5 mg = 1 Me moria 5 mg oral 8-19 tabs, l tablet 14:25: Oral, Gary 00 Daily, 0 Refill(s), BPH tamsulosin 2020-0 Yes 0.4 mg = 1 M emoria 0.4 mg oral 8-19 caps, l capsule 14:25: Oral, Gary 00 Daily, 0 Refill(s), BPH finasteride 2020-0 Yes 5 mg = 1 Me moria 5 mg oral 8-19 tabs, l tablet 14:25: Oral, Wm 00 Daily, 0 Refill(s), BPH dutasteride 2017-0 2023- No .5mg QD Take 0.5 M ethodi (AVODART) 4-10 04-[address] 0.5 mg 00:00: 00:00 mouth Hospita capsule 00 :00 daily. l tamsulosin 2017-0 Yes .4mg Take 1 Unive rs (FLOMAX) 2-27 capsule ity of 0.4 mg 24 00:00: (0.4 mg) [place] capsule 00 by mouth daily. [facility] tamsulosin 2016-0 Yes .4mg QD Take 1 Metho di (FLOMAX) 2-[address] 0.4 mg 00:00: (0.4 mg Hospita capsule,ext 00 total) by l ended mouth release daily. 24hr cholecalcif 2014- Yes [place] palma cintia, 09-12 ity of vitamin D3, 00:00: [place] (D3-1999 ORAL) [facility] Immunizations Ordered Filled Immunization Date Status Comments [facility] e Immunization Name Name [place] [id number] 2022-06-11 Completed Methodis t MRNA BIVALENT 00:00:00 Hospital BOOSTER VACCINATION FLUZONE HIGH-DOSE 2022-06-[address] [facility]:00[facility] 2021-07[facility]15 Completed Methodis t MRNA VACCINATION 00:00:00 [facility] SARS-CoV-2 2020-10-19 Completed Univer sity [facility] Vacc[facility]:00[facility] Methodis t MRNA VACCINATION 00:00:00 [facility] SARS-CoV-2 2020-09-21 Completed Univer sity of Vacc[facility] 00:00[facility] 2020-[facility] Completed Methodis t MRNA VACCINATION 00:00:00 Hospital Influenza, 2019-05-02 Completed University of Quadrivalent 00:00:00 Hilton Rodríguez [facility] Zoster, Unspecified 2018-11-12 Completed Unive rsity of 00:00:00 Hilton Baca [facility] Vital Signs Vital Name Observation Time Observation Value Comments Source HEIGHT 2021-08-31 21:41:00 182.9 cm WEIGHT 2021-08-31 21:41:00 76.5 kg HEIGHT 2021-08-31 21:41:00 182.9 cm WEIGHT 2021-08-31 21:41:00 76.5 kg Systolic blood 2023-01-03 16:40:00 114 mm[Hg] [facility] pressure Diastolic blood 2023-01-03 16:40:00 70 mm[Hg] [facility] pressure Heart rate 2023-01-03 16:40:00 63 /min [facility] Respiratory rate 2023-01-03 16:40:00 20 /min [facility] Oxygen saturation in 2023-01-03 16:40:00 98 /min [facility] Arterial blood by Pulse oximetry Body temperature 2023-01-03 16:05:00 37 [facility] Body height 2023-01-03 14:38:00 182.9 cm [facility] Body weight 2023-01-03 14:38:00 74.39 kg [facility] BMI 2023-01-03 14:38:00 22.24 kg/m2 [facility] Systolic blood 2022-12-17 13:45:35 128 mm[Hg] Univer sity of pressure [facility] Diastolic blood 2022-12-17 13:45:35 82 mm[Hg] Unive rsity of pressure [facility] Heart rate 2022-12-17 13:45:35 88 /min [facility] [place] [facility] Body temperature 2022-12-17 13:45:35 36.89 Mary Univ ersity of [facility] Respiratory rate 2022-12-17 13:45:35 17 /min Univ ersity [facility] Oxygen saturation in 2022-12-17 13:45:35 98 /min [facility] of Arterial blood by [facility] Pulse oximetry [facility] Body weight 2022-12-17 13:40:00 74.8 kg Universi ty [facility] BMI 2022-12-17 13:40:00 23.48 [facility] Respitory Rate 2021-05-01 19:08:00 Keshawn Siegel Heart Rate 2021-05-01 18:50:00 [facility] Respitory Rate 2021-05-01 18:50:00 Keshawn Siegel Systolic (mm Hg) 2021-05-01 18:50:00 Mrak Burk Diastolic (mm Hg) 2021-05-01 18:50:00 Mem orial Wm Heart Rate 2021-05-01 18:40:00 [facility] Respitory Rate 2021-05-01 18:40:00 Memori al Wm Systolic (mm Hg) 2021-05-01 18:40:00 Mark rial Gary Diastolic (mm Hg) 2021-05-01 18:40:00 Mem orial Gary Heart Rate 2021-05-01 18:30:00 [facility] Systolic (mm Hg) 2021-05-01 18:30:00 Mark rial Wm Diastolic (mm Hg) 2021-05-01 18:30:00 Mem orial Wm Temperature Oral (F) 2021-05-01 18:20:00 36.6 [facility] Temperature Oral (F) 2021-05-01 16:35:00 36.8 [facility] Height 2021-05-01 16:35:00 185.42 cm [facility] Height 2021-04-30 14:22:00 185.42 cm [facility] Gary Procedures Procedure Date / Time Performing Source Performed Clinician FL UGI W AIR HD BA W OR WO KUB 2023-01-06 Tone Greer ethodist 14:50:14 Hospital SURGICAL PATHOLOGY REQUEST 2023-01-03 Tone Greer Metho dist 17:53:00 [facility] ESOPHAGOGASTRODUODENOSCOPY (EGD) 2023-01-03 Tone Greer Uatsdin 15:25:[address] CHEST/LUNG SURVEILLANCE LOW 2022-12-11 Will Madrigal nivkeriity of DOSE 16:41:[facility] CHEST WO CONTRAST 2022-03-06 Krunal Madrigal 16:17:11 [facility] ESOPHAGOGASTRODUODENOSCOPY 2021-05-01 Andre Burk W/BIOPSY 22076 (N/A)<sup>1</sup> 18:14:00 ASSIGNMENT OF BENEFITS 2021-04-29 Doctor Universit y of 16:20:18 Unassigned, No [place] [facility] Branch Lung tumor excision 2016-09-12 [facility] davis 00:00:00 Capsule endoscopy 2005-09-12 [facility] nn 00:00:00 Cholecystectomy [facility] Colonoscopy [facility] Tonsillectomy [facility] Excision of cataract [facility] Plan of Care Planned Activity Planned Date Details Comments Source Future Scheduled 2023-05-[address] [facility] Test 00:00:00 (Season Ended) [code Medical Center = INFLUENZA VACCINE (Season Ended)] Future Scheduled 2023-01-07 65+ PNEUMOCOCCAL Methodi [facility] Test 11:17:43 VACCINE (1 - PCV) [code = 65+ PNEUMOCOCCAL VACCINE (1 - PCV)] Future Scheduled 2023-01-07 SHINGLES VACCINES (1 Met [facility] Test 11:17:43 of 2) [code = SHINGLES VACCINES (1 of 2)] Future Scheduled 2023-01-07 INFLUENZA VACCINE Method [facility] Test 11:17:43 [code = INFLUENZA VACCINE] Future Scheduled 2022-12-21 COVID-19 Vaccination Uni [facility] Test 08:12:07 (3 - Booster for MD [facility] Moderna series) [code Center = COVID-19 Vaccination (3 - Booster for Moderna series)] Future Scheduled 2022-09-[address] [facility] Test 00:00:00 (12+) [code = Medical Center DEPRESSION SCREENING (12+)] Future Scheduled 2022-09-12 FALLS RISK SCREENING [facility] Test 00:00:00 [code = FALLS RISK Medical C enter SCREENING] Future Scheduled 2022-09-[address] [facility] Test 00:00:00 Counseling and Medical Cente r Screening (12+) [code = Tobacco Cessation Counseling and Screening (12+)] Future Scheduled 2021-09-[address] [facility] Test 00:00:00 WELLNESS (YEAR 2 or Medical Center FIRST YEAR if no IPPE) [code = MEDICARE ANNUAL WELLNESS (YEAR 2 or FIRST YEAR if no IPPE)] Future Scheduled 2020-11-16 COVID-19 VACCINE (3 - [facility] 00:[facility]00 Moderna risk series) Medical Center [code = COVID-19 VACCINE (3 - Moderna risk series)] Future Scheduled 1955 DTAP/TDAP/TD VACCINES [facility] Test 00:00:00 (1 - Tdap) [code = Medical C enter DTAP/TDAP/TD VACCINES (1 - Tdap)] Future Scheduled 1955 SHINGLES VACCINES ([address] [facility] Test 00:00:00 of 2) [code = Medical Center SHINGLES VACCINES (1 of 2)] Future Scheduled 1942 PNEUMOCOCCAL 65+ YRS [facility] Test 00:00:00 (1 - PCV) [code = Medical Ce nter PNEUMOCOCCAL 65+ YRS (1 - PCV)] Encounters Start End Encounter Admission Attending Care Care Encounter Source Date/Time Date/Time Type Type Clinicians Facility Department ID 2021-10-14 Outpatient SYSTEM, MDA ANIRUDH [id number] 06:34:27 PROVIDER Tino o n 2021-07-21 Outpatient SYSTEM, MDA MDA [id number] 13:06:18 PROVIDER Tino o n 2021-06-04 Outpatient SYSTEM, MDA MDA [id number] MD 13:47:21 PROVIDER Tino o n 2021-04-29 Outpatient SYSTEM, MDA MDA [id number] 13:40:19 PROVIDER Tino o n 2021-02-03 Outpatient SYSTEM, MDA MDA [id number] 17:12:03 PROVIDER Tino o n 2020-12-17 Outpatient SYSTEM, MDA MDA [id number] 14:43:11 PROVIDER Tino o n 2020-11-08 Outpatient SYSTEM, MDA ANIRUDH [id number] 09:12:21 PROVIDER Tino o n 2020-04-02 Outpatient ARANAS, MDA ANIRUDH [id number] 18:08:05 [facility] 2023-01-06 2023-01-06 [facility] 1.2.840.1 [id number] Methodi 08:11:32 23:59:00 Encounter Tone Simmons 74712.1.1 983 s t 3.430.2.7 Hospit a .3.955870 l .8 2023-01-06 2023-01-06 Outpatient [facility] [id number] 00:00:00 00:00:00 TONE [address]rrutia[address] [facility] 2023-01-06 2023-01-06 Travel 1.2.840.1 1.2.883.485 [id number] Methodi 00:00:00 00:00:[address] 3.430.2.7 0.2.7.3.698 Ho spita .3.117042 084.8 l .8 2023-01-03 2023-01-03 [address]840[address]1 [id number] Methodi 08:39:00 12:10:00 Encounter Tone Simmons 15606.1.1 696 s t 3.430.2.7 Hospit a .3.150852 l .8 2023-01-03 2023-01-03 Anesthesia Pamela Hinkle A. 1.2.840.1 10 [id number] Methodi 10:30:00 11:06:00 Event Tanna Mckeon 84548.1.[address] 3.430.2.7 Hospit a .3.497126 l .8 2023-01-03 2023-01-03 Surgery [place] 26836.2.840.1 [id number] Methodi 10:15:00 10:41:00 Tone Simmons 14986.1.[address] 3.430.2.7 Hospit a .3.532512 l .8 2023-01-03 2023-01-03 Outpatient [facility] [id number] [place] 00:00:00 00:00:00 TONE [address] 2023-01-03 2023-01-03 Travel 1.2.840.1 1.2.488.571 [id number] [id number] Methodi 00:00:00 00:00:[address] 3.430.2.7 0.2.7.3.698 Ho spita .3.598919 084.8 l .8 2022-12-17 2022-12-17 Office Chung 2.840.1 [id number] [facility] 09:00:00 09:48:44 Visit Tim 03622.1.1 ity of 3.412.2.7 [place] .3.007312 MD Mancuso8 [facility] 2022-12-17 2022-12-17 Outpatient MARIE CHUNG ANIRUDH MDA [id number] 08:29:33 09:48:44 TIM Keven [facility] 2022-12-17 2022-12-17 Travel 1.2.840.1 1.2.736.842 [id number] [facility] 00:00:00 00:00:00 00366.1.1 350.1.13.41 ity of 3.412.2.7 2.[place].7.3.698 [place] .3.636050 084.8 MD Mancuso8 [facility] 2022-12-11 2022-12-11 Outpatient MARIE CHUNG ANIRUDH MDA [id number] 11:11:36 23:59:00 TIM Baca [facility] 2022-12-11 2022-12-11 [facility] Chung 1.2.840.1 [id number] [facility] 11:11:36 23:59:00 Laura Lopez 19684.1.1 i ty of 3.412.2.7 [place] .3.452722 MD Mancuso8 [facility] 2022-12-11 2022-12-11 Travel 1.2.840.1 1.2.776.560 [id number] [facility] 00:00:00 00:00:00 90592.1.1 350.1.13.41 ity of 3.412.2.7 2.[place]7.3.698 [place] .3.602474 084.8 MD Mancuso8 [facility] 2022-03-09 2022-03-09 Outpatient MARIE MADRIGAL ANIRUDH MDA [id number] 13:40:44 13:40:49 TIM Baca [facility] 2022-03-09 2022-03-09 Telemedici Chung, 1.2.840.1 [id number] [facility] 13:00:00 13:40:49 ne Tim 25044.1.1 ity of 3.412.2.7 [place] .3.323711 MD Mancuso8 [facility] 2022-03-06 2022-03-06 Outpatient MARIE CHUNG MDA MDA [id number] 11:01:10 23:59:00 TIM Lastderrick farrell 2022-03-06 2022-03-06 [facility] Chung, 1.2.840.1 [id number] [facility] 11:01:10 23:59:00 Encounter Tim 60728.1.1 i ty of 3.412.2.7 [place] .3.099479 .8 [facility] 2022-03-06 2022-03-06 Travel 1.2.840.1 1.2.044.089 [id number] Univers 00:00:00 00:00:00 23439.1.1 350.1.13.41 ity of 3.412.2.7 2.[place].7.3.698 [place] .3.531514 084.8 MD Mancuso8 [facility] 2021-12-11 2021-12-11 Outpatient MARIE CALDWELL MDA MDA [id number] 09:46:18 23:59:00 BRADLEY farrell 2021-12-11 2021-12-11 Outpatient MARIE CALDWELL MDA MDA [id number] 11:29:31 12:41:52 BRADLEY farrell 2021-08-31 2021-09-02 Inpatient ER BRITTANY, [facility] [id number] [facility] 20:26:00 13:34:00 KAREN 2021-08-31 2021-08-31 Outpatient [facility] [id number] [facility] 20:26:00 23:59:00 Miracle 2021-05-01 2021-05-03 [facility] [id number] Memoria 16:02:13 04:59:59 r [facility] 2021-05-01 2021-05-03 Outpatient [facility] [id number] Memoria 16:02:13 04:59:59 r [facility] 2021-05-01 2021-05-02 Outpatient [facility] [id number] Memoria 11:02:13 23:59:59 r rajani Gary 2021-05-01 2021-05-02 Outpatient Percy, [id number] 11:02:13 23:59:59 Tone 8 2021-04-29 2021-04-29 Laboratory Only, Adc Test [facility] 1.2.840. 114 [id number] Univers 12:12:42 12:22:42 Only Saundra Woodard 350.1.13.10 ity [place] [id number] [facility] [address] 2021-04-29 2021-04-29 Outpatient R [facility] [id number] Univers 11:30:00 11:30:00 OMAYEMSpencer ity of [facility] 2021-04-29 2021-04-29 Letter Doctor ERENDIRA 1.2.840.114 [id number] Univers 00:00:00 00:00:00 (Out) Unassigned, JUDY 350.1.13.10 ity [facility] [place] [facility] 4.2.7.2.686 Aniket as [id number] [facility] [address] 2021-04-29 2021-04-29 Letter Doctor ERENDIRA 1.2.840.114 [id number] Univers 00:00:00 00:00:00 (Out) Unassigned, JUDY 350.1.13.10 [place] [facility] 4.2.7.2.686 Aniket as [id number] [facility] [address] 2021-04-29 2021-04-29 Orders Doctor ERENDIRA 1.2.840.114 [id number] Univers 00:00:00 00:00:00 Only Unassigned, JUDY 350.1.13.10 [facility] [place] [facility] 4.2.7.2.686 Aniket as [phone] [facility] [address] Branch 2021-04-06 2021-04-06 Outpatient MARIE MURPHY MDA MDA [id number] 10:30:00 23:59:00 ISIS farrell 2021-04-06 2021-04-06 Outpatient MARIE CLINE MDA MDA [id number] 11:55:09 15:07:07 CINTHIA farrell 2021-03-19 2021-03-19 Outpatient MARIE CLINE MDA MDA [id number] 15:01:37 16:04:17 CINTHIA farrell 2021-03-18 2021-03-18 Outpatient MARIE MURPHY, MDA MDA [id number] 06:43:30 23:59:00 ISIS farrell 2021-03-18 2021-03-18 Outpatient MARIE MURPHY, MDA MDA [id number] 06:21:09 06:42:00 ISIS farrell 2021-01-08 2021-01-08 Outpatient MARIE CLINE, MDA MDA [id number] 15:03:21 15:23:15 CINTHIA farrell 2020-12-24 2020-12-24 Outpatient KEHINDE DELGADILLO MDA MDA [id number] 00:00:00 00:00:00 Tino farrell 2020-12-23 2020-12-23 Outpatient KEHINDE DELGADILLO MDA MDA [id number] 12:34:55 12:45:44 Tino farrell 2020-12-20 2020-12-20 Outpatient MARIE CALDWELL, MDA MDA [id number] 11:15:27 23:59:00 BRADLEY farrell 2020-11-25 2020-11-25 Outpatient MARIE MURPHY, MDA MDA [id number] 08:22:19 08:22:19 ISIS farrell 2020-11-17 2020-11-17 [facility] [id number] [place] 00:00:00 00:00:00 TONE [address] 2020-11-13 2020-11-13 [facility] [id number] [place] 00:00:00 00:00:00 TONE [address] 2020-03-25 2020-03-25 Outpatient KEHINDE DELGADILLO MDA MDA [id number] 08:49:59 09:01:42 Tino farrell 2020-03-20 2020-03-20 Outpatient PAULETTE, MDA MDA [id number] MD 19:50:21 19:50:21 BRADLEY farrell 2020-03-20 2020-03-20 Outpatient SON, MDA MDA [id number] 13:53:33 13:53:33 CINTHIA farrell Results Test Description Test Time Test Comments Results Result Comments Source Surgical pathology request 2023-01-07 20:03:23 Test Item Value Reference Range Interpretation Comme nts Case number (test code = [id number]) [id number] Surgical pathology report (test code = See link below for PDF Lab R eport 8926) Result status (test code = 0319689) This is Final Report for [id number] [facility] [id number] 15:30:18Surgical Pathology Report Case: [id number] Authorizing Provider: Wilmer Tao MD Collected: 09/02/2021 11:11 AM Ordering Location: [address] Received: 09/02/2021 03:08 PM Service Pathologist: Rick Figueroa MD Specimens: A) - Biopsy, Terminal Ileum, random B) - Cecum, random PART A TERMINAL ILEUM, BIOPSY:SMALL INTESTINAL MUCOSA WITH PRESERVED VILLOUS ARCHITECTURE.NO OVERT MORPHOLOGIC EVIDENCE OF INVOLVEMENT BY LYMPHOMA.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 Signing Pathologist Direct Phone Line: [phone] signed by Rick Figueroa MD on 09/08/2021 at 3:30 PMPART B: Histological sections demonstrate biopsies of colonic mucosa involved by malignant lymphoma. The lymphoma cells are small in size and expand the lamina propria. Some characteristic lymphoepithelial lesions are identified. Immunohistochemical studies performed on block B1 demonstrate the lymphomacells to be positive for CD20. They are negative for CD3, CD5, CD10, BCL6, and cyclin D1. BCL2 is pos itive in a pattern similar to the T cells. An associated plasmacytic component is identified which demonstrates a kappa light chain predominance as opposed to lambda light chain. Ki-67 proliferative index is approximately 10% overall, and highlights areas of disrupted colonized germinal centers. 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 There is no morphologic evidence of large cell transformation. 64403N5, 34682, 82834Z32, 15305EaktddZ. Terminal ileumB. CecumA. Received in formalin labeled the patient's name, medical record number and "biopsy, terminal ileum" is a 0.3 x 0.3 x 0.2 cm pierce tissue fragment. The specimen is filtered and submitted in toto in A1.B. Received in formalin labeled with the patient's name, medical record number and "cecum" are multiple pierce tissue fragments ranging from 0.2 to 0.4 cm in greatest dimension. The specimen is filtered and submitted in toto in B1.MARLYN PaulinoERFORMEDThe interpretation of this case included the use of immunohistochemistry or special stains.BLOCK B1- CD20, CD5, CD3, CYCLIN D1, KAPPA, LAMBDA, CD10, BCL6, BCL2, CMV, HSV1, [id number] Slides Examined: In- house known positive controls were evaluated along with the test tissue. These control slides run alongside of the patients sample show appropriate staining. Internal positive and negative controls when available are evaluated Immunohistochemistry technical testing was performed at [facility], Pathology Laboratory where it was developed and its performance characteristics were determined. It has not been cleared or approved by the U.S. Food and Drug Administration. The FDA has determined that such clearance or approval is not necessary. The test is used for clinical purposes. It should not be regarded as investigational or for research. This laboratory is certified under the ClinicalLaboratory Improvement Amendments of 1988 (CLIA-88) as qualified to perform high complexity clinicallaboratory testing.[facility], Department of Pathology, [address] [place] [address], [facility], [facility] of [facility], [address] [place] [address], [facility], [facility] of [facility], [address] [place] [address] 34[address], [id number] 06:36:16 Test Item Value Reference Range Interpretation Comments PHOSPHORUS (BEAKER) (test code = 3.0 mg/dL 2.3-4.7 604) Wire Coiler Machine Operator ID - ROBIN [id number] 06:36:15 Test Item Value Reference Range Interpretation Comments MAGNESIUM (BEAKER) (test code = 2.1 mg/dL 1.6-2.6 627) Wire Coiler Machine Operator ID - ROBIN MBASIC METABOLIC [id number] 06:36:15 Test Item Value Reference Range Interpretation Comments SODIUM (BEAKER) 138 meq/L 136-145 (test code = 381) POTASSIUM (BEAKER) 4.6 meq/L 3.5-5.1 (test code = 379) CHLORIDE (BEAKER) 105 meq/L 98-107 (test code = 382) CO2 (BEAKER) (test 27 meq/L 22-29 code = 355) BLOOD UREA NITROGEN 8 mg/dL 7-21 (BEAKER) (test code = 354) CREATININE (BEAKER) 0.84 mg/dL 0.57-1.25 (test code = 358) GLUCOSE RANDOM 85 mg/dL 70-105 (BEAKER) (test code = 652) CALCIUM (BEAKER) 8.8 mg/dL 8.4-10.2 (test code = 697) EGFR (BEAKER) (test 87 mL/min/1.73 ESTIMA VANDA GFR IS code = 1092) sq m NOT ACCURATE CREATININE CLEARANCE IN PREDICTING GLOMERULAR FILTRATION RATE . ESTIMATED GFR I S NOT APPLICABLE FOR DIALYSIS PATIEN TS. Wire Coiler Machine Operator ID - ROBIN MCBC (HEMOGRAM ONLY)2021-09-02 05:57:13 Test Item Value Reference Range Interpretation Comments WHITE BLOOD CELL COUNT (BEAKER) 8.2 K/ L 3.5-10.5 (test code = 775) RED BLOOD CELL COUNT (BEAKER) 4.36 M/ L 4.63-6.08 L (test code = 761) HEMOGLOBIN (BEAKER) (test code = 13.1 GM/DL 13.7-17.5 L 410) HEMATOCRIT (BEAKER) (test code = 38.7 % 40.1-51.0 L 411) MEAN CORPUSCULAR VOLUME (BEAKER) 88.8 fL 79.0-92.2 (test code = 753) MEAN CORPUSCULAR HEMOGLOBIN 30.0 pg 25.7-32.2 (BEAKER) (test code = 751) MEAN CORPUSCULAR HEMOGLOBIN CONC 33.9 GM/DL 32.3-36.5 (BEAKER) (test code = 752) RED CELL DISTRIBUTION WIDTH 15.6 % 11.6-14.4 H (BEAKER) (test code = 412) PLATELET COUNT (BEAKER) (test 134 K/CU MM 150-450 L code = 756) MEAN PLATELET VOLUME (BEAKER) 10.5 fL 9.4-12.4 (test code = 754) NUCLEATED RED BLOOD CELLS 0 /100 WBC 0-0 (BEAKER) (test code = 413) SARS-COV2/RT-PCR ([facility])2021-09-01 07:35:39 Test Item Value Reference Range Interpretation Comments SARS-COV2/RT-PCR (test code = Negative Negative [id number]) Negative result for this test determines that SARS-CoV-2 RNA was not present in the specimen above the Limit of Detection (LOD). However, Negative results do not preclude SARS-CoV-2 infection and should not be used as the sole basis for treatment or patient management decisions. Negative results must be combined with clinical observations, patient history, and epidemiological information. A false negative result may occur if a specimen is improperly collected, transported, or handled. A false negative result should be considered if patient's recent exposures or clinical presentation indicate that COVID-19 (SARS-CoV-2) is likely and diagnostic tests for other causes of illness are negative. Re-testing should be considered in cases of suspected false negatives.The limit of detection for this assayis 100 copies/mL.This SARS-CoV-2 test is a real-time RT_PCR test intended for the qualitative detection of nucleic acid from SARS-CoV-2 in a nasopharyngeal swab specimen collected from individuals suspected of COVID-19 by their healthcare provider.This test has not been Food and Drug Administration (FDA) cleared or approved. This is a modified version of an approved Emergency Use Authorization (EUA) and is in the process of review by the FDA. Once authorized by the FDA, the issued EUA will be effecti ve until the declaration that circumstances exist justifying the authorization of the emergency use of in vitro diagnostic tests for detection and/or diagnosis of COVID-19 is terminated under Section 564(b)(2) of the Act or the EUA is revoked under Section 564(g) of the Act.Testing was performed usingthe iRates SARS-CoV-2 assay.Fact Sheet for Healthcare Providers:https://www.[employer]/tanesha/RT SARS-CoV-2 HCP Fact Sheet 51- 697518.pdfFact Sheet for Healthcare Patients:https://www.[employer]tanesha/RT SARS-CoV-2 Patient Fact Sheet EN 51-466121S9.[id number] 04:51:43 Test Item Value Reference Range Interpretation Comments MAGNESIUM (BEAKER) (test code = 2.1 mg/dL 1.6-2.6 627) Wire Coiler Machine Operator ID - ROBIN [id number] 04:51:43 Test Item Value Reference Range Interpretation Comments PHOSPHORUS (BEAKER) (test code = 2.8 mg/dL 2.3-4.7 604) Wire Coiler Machine Operator ID - ROBIN MBASIC METABOLIC [id number] 04:51:42 Test Item Value Reference Range Interpretation Comments SODIUM (BEAKER) 139 meq/L 136-145 (test code = 381) POTASSIUM (BEAKER) 3.8 meq/L 3.5-5.1 (test code = 379) CHLORIDE (BEAKER) 106 meq/L 98-107 (test code = 382) CO2 (BEAKER) (test 28 meq/L 22-29 code = 355) BLOOD UREA NITROGEN 9 mg/dL 7-21 (BEAKER) (test code = 354) CREATININE (BEAKER) 0.83 mg/dL 0.57-1.25 (test code = 358) GLUCOSE RANDOM 85 mg/dL 70-105 (BEAKER) (test code = 652) CALCIUM (BEAKER) 8.9 mg/dL 8.4-10.2 (test code = 697) EGFR (BEAKER) (test 88 mL/min/1.73 ESTIMA VANDA GFR IS code = 1092) sq m NOT ACCURATE CREATININE CLEARANCE IN PREDICTING GLOMERULAR FILTRATION RATE . ESTIMATED GFR I S NOT APPLICABLE FOR DIALYSIS PATIEN TS. Wire Coiler Machine Operator ID - ROBIN MCBC (HEMOGRAM ONLY)2021-09-01 04:50:29 Test Item Value Reference Range Interpretation Comments WHITE BLOOD CELL COUNT 7.4 K/ L 3.5-10.5 (BEAKER) (test code = 775) RED BLOOD CELL COUNT 4.49 M/ L 4.63-6.08 L (BEAKER) (test code = 761) HEMOGLOBIN (BEAKER) 13.5 GM/DL 13.7-17.5 L (test code = 410) HEMATOCRIT (BEAKER) 40.6 % 40.1-51.0 (test code = 411) MEAN CORPUSCULAR 90.4 fL 79.0-92.2 Discordant result VOLUME (BEAKER) (test compar ed to previous code = 753) result. Clinica l correlation req uired MEAN CORPUSCULAR 30.1 pg 25.7-32.2 HEMOGLOBIN (BEAKER) (test code = 751) MEAN CORPUSCULAR 33.3 GM/DL 32.3-36.5 HEMOGLOBIN CONC (BEAKER) (test code = 752) RED CELL DISTRIBUTION 15.8 % 11.6-14.4 H WIDTH (BEAKER) (test code = 412) PLATELET COUNT 140 K/CU MM 150-450 L (BEAKER) (test code = 756) MEAN PLATELET VOLUME 10.5 fL 9.4-12.4 (BEAKER) (test code = 754) NUCLEATED RED BLOOD 0 /100 WBC 0-0 CELLS (BEAKER) (test code = 413) VITAMIN B12 AND [id number] 23:57:38 Test Item Value Reference Range Interpretation Comments VITAMIN B12 1034 pg/mL 213-816 H (BEAKER) (test code = 774) FOLATE (BEAKER) 19.80 ng/mL See_Comment [Automated message] (test code = 362) The system which generated this result transmitted ref erence range: >=7.00. The reference range was not used to interpr et this result as normal/abnormal . Wire Coiler Machine Operator ID - [id number] 23:12:32 Test Item Value Reference Range Interpretation Comments FERRITIN (BEAKER) (test code = 27.49 ng/mL 5.00-275.00 361) [employer] Machine Operator ID - [id number] 22:38:10 Test Item Value Reference Range Interpretation Comments PHOSPHORUS (BEAKER) (test code = 2.7 mg/dL 2.3-4.7 604) Wire Coiler Machine Operator ID - BSIRON, TIBC, % SAT. (WITHOUT FERRITIN)2021-08-31 22:38:10 Test Item Value Reference Range Interpretation Comments IRON (BEAKER) (test code = 547) 82.0 ug/dL 40.0-160.0 TOTAL IRON BINDING CAPACITY 323 ug/dL 250-450 (BEAKER) (test code = 769) IRON % SATURATION (2) (BEAKER) 25 % 20-55 (test code = 2590) Wire Coiler Machine Operator ID - [id number] 22:38:09 Test Item Value Reference Range Interpretation Comments MAGNESIUM (BEAKER) (test code = 2.1 mg/dL 1.6-2.6 627) Wire Coiler Machine Operator ID - BSCOMPREHENSIVE METABOLIC [id number] 22:38:09 Test Item Value Reference Range Interpretation Comments TOTAL PROTEIN 6.5 gm/dL 6.0-8.3 (BEAKER) (test code = 770) ALBUMIN (BEAKER) 3.8 g/dL 3.5-5.0 (test code = 1145) ALKALINE PHOSPHATASE 75 U/L 40-150 (BEAKER) (test code = 346) BILIRUBIN TOTAL 0.9 mg/dL 0.2-1.2 (BEAKER) (test code = 377) SODIUM (BEAKER) (test 138 meq/L 136-145 code = 381) POTASSIUM (BEAKER) 3.8 meq/L 3.5-5.1 (test code = 379) CHLORIDE (BEAKER) 105 meq/L 98-107 (test code = 382) CO2 (BEAKER) (test 25 meq/L 22-29 code = 355) BLOOD UREA NITROGEN 8 mg/dL 7-21 (BEAKER) (test code = 354) CREATININE (BEAKER) 0.78 mg/dL 0.57-1.25 (test code = 358) GLUCOSE RANDOM 91 mg/dL 70-105 (BEAKER) (test code = 652) CALCIUM (BEAKER) 8.9 mg/dL 8.4-10.2 (test code = 697) AST (SGOT) (BEAKER) 15 U/L 5-34 (test code = 353) ALT (SGPT) (BEAKER) 14 U/L 6-55 (test code = 347) EGFR (BEAKER) (test 95 mL/min/1.73 ESTIMA VANDA GFR IS code = 1092) sq m NOT ACCURATE CREATININE CLEARANCE IN PREDICTING GLOMERULAR FILTRATION RATE . ESTIMATED GFR I S NOT APPLICABLE FOR DIALYSIS PATIEN TS. Wire Coiler Machine Operator ID - [id number] 22:33:26 Test Item Value Reference Range Interpretation Comments PROTIME (BEAKER) 14.0 seconds 11.9-14.2 (test code = 759) INR (BEAKER) (test 1.10 See_Comment [Automat ed message] code = 370) The system [employer] generated this result transmitted ref erence range: <=5.90. The reference range was not used to int erpret this result as normal/abnormal . RECOMMENDED COUMADIN/WARFARIN INR THERAPY RANGESSTANDARD DOSE: 2.0 - 3.0 Includes: PROPHYLAXIS for venous thrombosis, systemic embolization; TREATMENT for venous thrombosis and/or pulmonary embolus.HIGH RISK: Target INR is 2.5-3.5 for patients with mechanical heart valves.CBC W/PLT COUNT & AUTO [id number] 22:22:45 Test Item Value Reference Range Interpretation Comments WHITE BLOOD CELL COUNT (BEAKER) 8.8 K/ L 3.5-10.5 (test code = 775) RED BLOOD CELL COUNT (BEAKER) 4.67 M/ L 4.63-6.08 (test code = 761) HEMOGLOBIN (BEAKER) (test code = 13.9 GM/DL 13.7-17.5 410) HEMATOCRIT (BEAKER) (test code = 40.0 % 40.1-51.0 L 411) MEAN CORPUSCULAR VOLUME (BEAKER) 85.7 fL 79.0-92.2 (test code = 753) MEAN CORPUSCULAR HEMOGLOBIN 29.8 pg 25.7-32.2 (BEAKER) (test code = 751) MEAN CORPUSCULAR HEMOGLOBIN CONC 34.8 GM/DL 32.3-36.5 (BEAKER) (test code = 752) RED CELL DISTRIBUTION WIDTH 15.5 % 11.6-14.4 H (BEAKER) (test code = 412) PLATELET COUNT (BEAKER) (test 142 K/CU MM 150-450 L code = 756) MEAN PLATELET VOLUME (BEAKER) 10.2 fL 9.4-12.4 (test code = 754) NUCLEATED RED BLOOD CELLS 0 /100 WBC 0-0 (BEAKER) (test code = 413) NEUTROPHILS RELATIVE PERCENT 71 % (BEAKER) (test code = 429) LYMPHOCYTES RELATIVE PERCENT 17 % (BEAKER) (test code = 430) MONOCYTES RELATIVE PERCENT 10 % (BEAKER) (test code = 431) EOSINOPHILS RELATIVE PERCENT 1 % (BEAKER) (test code = 432) BASOPHILS RELATIVE PERCENT 1 % (BEAKER) (test code = 437) NEUTROPHILS ABSOLUTE COUNT 6.24 K/ L 1.78-5.38 H (BEAKER) (test code = 670) LYMPHOCYTES ABSOLUTE COUNT 1.53 K/ L 1.32-3.57 (BEAKER) (test code = 414) MONOCYTES ABSOLUTE COUNT (BEAKER) 0.83 K/ L 0.30-0.82 H (test code = 415) EOSINOPHILS ABSOLUTE COUNT 0.11 K/ L 0.04-0.54 (BEAKER) (test code = 416) BASOPHILS ABSOLUTE COUNT (BEAKER) 0.04 K/ L 0.01-0.08 (test code = 417) IMMATURE GRANULOCYTES-RELATIVE 0 % 0-1 PERCENT (BEAKER) (test code = 2801)
[2023-01-08] MEDS ORDERED: FAMOTIDINE 20 MG/2 ML VIAL IV ONE (09:58)
[2023-01-08] MEDS ORDERED: ONDANSETRON 4 MG/2 ML VIAL ONE (09:58)
[2023-01-08 10:00] LABS: Absolute Lymphocytes (CBC) 0.7 K/uL (0.7-4.9); Hematocrit 29.4 % (39.6-49.0); Lymphocytes % 5.8 % (15.3-44.8); MCV 85.1 fL (80-100); MPV 7.9 fL (7.6-11.3); RBC Red Blood Cell Count 3.45 M/uL (4.33-5.43)
[2023-01-08 11:39] LABS: Albumin 2.1 g/dL (3.4-5.0); Bilirubin Total 0.6 mg/dL (0.2-1.0); Potassium 3.2 mEq/L (3.5-5.1); Protein, Total 4.9 g/dL (6.4-8.2)
--- NOTE | 2023-01-08 11:59 | RAD REPORT ---
EXAM DESCRIPTION: CT - Abdomen Pelvis Wo Contrast - 01/08/2023 11:15 am CLINICAL HISTORY: ABD PAIN COMPARISON: CTs of the abdomen and pelvis 08/31/2021 and 10/25/2020 TECHNIQUE: Thin cut axial CT imaging of the abdomen and pelvis was performed without IV contrast. Mu ltiplanar reformats were generated and reviewed. All CT scans are performed using dose optimization technique as appropriate and may include automated exposure control or mA/KV adjustment according to patient size. FINDINGS: Small left pleural effusion. Patchy confluent airspace opacities in the right middle lobe, could represent an early infectious or inflammatory process, possibly due to aspiration. The liver, spleen, and adrenal glands show no suspicious findings. A left liver lobe hypoattenuating 1.3 centimeter cyst is stable. Status post cholecystectomy. No findings to suggest intra or extrahepa tic biliary ductal dilation. No suspicious renal parenchymal findings within limits of noncontrast technique. Right moderate hydro nephrosis and proximal hydroureter. This could be due to mass effect from abnormalities noted below. Nonobstructing right upper pole 4 millimeter calculus. Bulky soft tissue density mass measuring approximately 9.7 x 9.1 x 6.1 centimeter centered on the irina t of the mesentery right of midline, and appears to be contiguous with the pancreatic head and proxim al duodenum. Right retroperitoneal surgical clips noted on the prior exam, some of which appeared to be engulfed by the mass today. The mass is also contiguous with a masslike component measuring at [address] st 7.3 x 4.8 centimeter in greatest axial dimensions, which is contiguous with the proximal transvers e colon. There is nodular masslike thickening along the hepatic flexure and ascending colon. No dilated bowel loops. No free air. Untv-ey-evoyeaxk free ascites. Retroperitoneal adenopathy, with the largest yadira mass present in the aortocaval region just below the level of the right renal vein, measuring 5.1 x 4.8 centimeter. The urinary bladder is without significant finding. Oral contrast co ncentrated in the rectum and distal colon results in streak artifact which limits evaluation of pelvi c structures. No suspicious bony findings. IMPRESSION: Bulky masses centered on the root of the mesentery right of midline, with a contiguous r ight upper quadrant mass which appears to involve the proximal transverse colon, findings which may b e of yadira origin, concerning for metastatic disease. Other extensive retroperitoneal adenopathy. Nodular thickening along the wall of the ascending colon, raises concern for malignancy is well. Moderate right hydronephrosis and proximal hydroureter, may be related to mass effect from the above abnormalities. The findings were communicated to Ian Cline on 01/08/2023 at 11:42 hours.
--- NOTE | 2023-01-08 12:45 | EDPHYS ---
Physician Documentation [facility] Name: Carlton Nuñez III Age: 87 yrs Sex: Male : 1935 Arrival Date: 01/08/2023 Time: 09:15 Bed 8 Private MD: ED Physician Ian Cline HPI: 01/08 09:32 This 87 yrs old Male presents to ER via Unassigned with complaints of General Weakness. ms3 09:32 87-year-old male presents via [facility] for generalized weakness. Patient states ms3 he has been on liquids with high protein for the last few days due to obstruction in his esophagus. Patient states he is having 3-4/10 abdominal pain. Patient denies nausea, vomiting, fevers, chills. 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 - Social history:: Smoking status: Patient denies any tobacco usage or history of. ROS: 09:32 Constitutional: Negative for fever, and chills. Neck: Negative for injury, pain, and ms3 swelling, Cardiovascular: Negative for chest pain, and palpitations. Respiratory: Negative for shortness of breath, cough, wheezing, and pleuritic chest pain. 09:32 MS/Extremity: Negative for injury and deformity, Skin: Negative for injury, rash, and discoloration. 09:32 Abdomen/GI: Positive for abdominal pain. 09:32 All other systems are negative. Exam: 09:32 Constitutional: This is a well developed, well nourished patient who is awake, alert, ms3 and in no acute distress. Head/Face: Normocephalic, atraumatic. Neck: Trachea midline, no cervical lymphadenopathy. Supple, full range of motion without nuchal rigidity, or vertebral point tenderness. No Meningismus. Chest/axilla: Normal chest wall appearance and motion. Nontender with no deformity. Cardiovascular: Regular rate and rhythm with a normal S1 and S2. No gallops, murmurs, or rubs. Normal PMI, no JVD. No pulse deficits. Respiratory: Lungs have equal breath sounds bilaterally, clear to auscultation and percussion. No rales, rhonchi or wheezes noted. No increased work of breathing, no retractions or nasal flaring. Abdomen/GI: Soft, non-tender, with normal bowel sounds. No distension or tympany. No guarding or rebound. No evidence of tenderness throughout. Skin: Warm, dry with normal turgor. Normal color with no rashes, no lesions, and no evidence of cellulitis. MS/ Extremity: Pulses equal, no cyanosis. Neurovascular intact. Full, normal range of motion. Vital Signs: 09:15 BP 143 / 99; Pulse 72; Resp 16; Temp 98; Pulse Ox 94% ; bp 11:00 BP 130 / 89; Pulse 71; Resp 18 S; Pulse Ox 100% on R/A; aa5 13:00 BP 132 / 84; Pulse 72; Resp 17 S; Temp 97.7(TE); Pulse Ox 100% on R/A; aa5 MDM: 09:24 Patient medically screened. snw 09:32 Differential diagnosis: bowel obstruction, gastritis, gastroesophageal reflux disease, ms3 non-specific abd pain, pancreatitis. 13:17 Data reviewed: vital signs, nurses notes, lab test result(s), radiologic studies, and ms3 as a result, I will transfer. Consideration of Admission/Observation patient transferred . Management of patient was discussed with the following: Primary Care Provider: Dr Russ Little. I considered the following discharge prescriptions or medication management in the emergency department Medications were administered in the Emergency Department. See MAR. Discussion of test interpretation with radiology: I had a discussion with radiology regarding a test interpretation. CT abdomen/pelvis results discussed with Dr Keating. Large mesenteric mass continuous with distal transverse colon, bulky lymph nodes. Moderate hydronephrosis. 13:19 Historians other than the Patient: EMS: [facility]. Counseling: I had a detailed ms3 discussion with the patient and/or guardian regarding: the historical points, exam findings, and any diagnostic results supporting the discharge/admit diagnosis, lab results, radiology results, the need to transfer to another facility. Response to treatment: the patient's symptoms have mildly improved after treatment, and as a result, I will transfuse. ED course: Patient remains in stable condition at this time.. 01/08 09:31 Order name: CBC with Diff; Complete Time: 10:26 ms3 01/08 09:31 Order name: CMP; Complete Time: 12:04 ms3 01/08 09:31 Order name: Lipase; Complete Time: 12:04 ms3 01/08 12:43 Order name: SARS RAPID; Complete Time: 13:17 eb 01/08 11:12 Order name: Abdomen ; Complete Time: 12:04 EDMS 01/08 09:31 Order name: IV Saline Lock; Complete Time: 09:50 ms3 01/08 09:31 Order name: Labs collected and sent; Complete Time: 09:50 ms3 01/08 10:52 Order name: Labs - recollect needed: recollect the chemistries/ hemolyzed; Complete eb Time: 11:06 Administered Medications: 10:00 Drug: Famotidine IVP 20 mg Route: IVP; Site: right forearm; aa5 10:10 Follow up: Response: No adverse reaction aa5 10:00 Drug: Ondansetron IVP 4 mg Route: IVP; Site: right forearm; aa5 10:10 Follow up: Response: No adverse reaction aa5 13:17 Drug: Lactated Ringers Solution IV 1000 ml Route: IV; Rate: 150 ml/hr; Site: right aa5 forearm; 13:35 Follow up: IV Status: Infusion continued upon transfer aa5 Disposition Summary: 01/08/23 12:44 Transfer Ordered Transfer Location: Other Acute Care Facility ms3 Reason: Higher level of care ms3 Condition: Stable ms3 Problem: new ms3 Symptoms: are unchanged ms3 Accepting Physician: Dr. Dominguez Shah(01/08/23 13:44) aa5 Diagnosis - Hypercalcemia ms3 - Metastatic cancer ms3 - Anemia, unspecified ms3 Forms: - Medication Reconciliation Form ms3 - SBAR form ms3 Signatures: Dispatcher [employer] EDMS Carol Hernandez, ELEN REVIEW ANALYST-Jorgew Maryam Mckeon, RN RN aa5 Campos Woods, RN RN bp Mariana Coopre Marcus, DO DO ms3 Corrections: (The following items were deleted from the chart) 11:12 09:32 Abdomen Pelvis W Con+CT.RAD.BRZ ordered. EDMS EDMS 12:59 12:44 dr ms3 eb 13:44 12:59 Dr. Dominguez Amos MD [facility] aa5
--- NOTE | 2023-01-08 12:45 | ER ---
Nurse's Notes [facility] Name: Carlton Nuñez III Age: 87 yrs Sex: Male : 1935 Arrival Date: 01/08/2023 Time: 09:15 Bed 8 Private MD: Diagnosis: Hypercalcemia;Metastatic cancer;Anemia, unspecified Presentation: 01/08 09:15 Chief complaint: EMS states: PROGRESSIVE GEN WEAKNESS x1 WEEK, NON AMBULATORY TODAY. bp Coronavirus screen: At this time, the client does not indicate any symptoms associated with coronavirus-19. Ebola Screen: No symptoms or risks identified at this time. Initial Sepsis Screen: Does the patient meet any 2 criteria? No. Patient's initial sepsis screen is negative. Does the patient have a suspected source of infection? No. Patient's initial sepsis screen is negative. Risk Assessment: Do you want to hurt yourself or someone else? Patient reports no desire to harm self or others. Onset of symptoms is unknown. Care prior to arrival: Glucose check: 118. 09:15 Method Of Arrival: EMS: [facility] bp 09:15 Acuity: ATUL 3 bp Triage Assessment: 09:15 General: Appears in no apparent distress. Behavior is calm, cooperative, appropriate bp for age. Pain: Denies pain. EENT: No deficits noted. Neuro: Reports weakness. Cardiovascular: Rhythm is sinus rhythm. Respiratory: No deficits noted. GI: No signs and/or symptoms were reported involving the gastrointestinal system. : No signs and/or symptoms were reported regarding the genitourinary system. Derm: No deficits noted. Musculoskeletal: No deficits noted. 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 - Social history:: Smoking status: Patient denies any tobacco usage or history of. Screenin:48 [facility] ED Fall Risk Assessment (Adult) History of falling in the last 3 months, bp including since admission No falls in past 3 months (0 pts). Abuse screen: Denies threats or abuse. Denies injuries from another. Nutritional screening: No deficits noted. Tuberculosis screening: No symptoms or risk factors identified. Assessment: 09:15 General: SEE TRIAGE NOTE. bp 09:30 General: Appears uncomfortable, Behavior is calm, cooperative. Pain: Complains of pain aa5 in right upper quadrant, left upper quadrant, right lower quadrant and left lower quadrant Quality of pain is described as aching, Is intermittent. Neuro: Level of Consciousness is awake, alert, obeys commands, Oriented to person, place, time, situation, Fire Hydrant Mechanic are weak bilaterally Moves all extremities. Speech is normal, Facial symmetry appears normal, Reports generalized weakness x 1-2 weeks ago. . Cardiovascular: Heart tones S1 S2 present Rhythm is regular. Respiratory: Airway is patent Respiratory effort is even, unlabored, Respiratory pattern is regular, symmetrical. GI: Abdomen is round Bowel sounds present X 4 quads. Abdomen is tender to palpation in right upper quadrant, left upper quadrant, right lower quadrant and left lower quadrant Patient currently denies bloody stool, diarrhea, nausea, vomiting. : No signs and/or symptoms were reported regarding the genitourinary system. EENT: No signs and/or symptoms were reported regarding the EENT system. Derm: Skin is dry, Skin is pale, Skin temperature is warm. Musculoskeletal: Range of motion: intact in all extremities. 09:40 Reassessment: Per pt's and daughter reports pt had endoscopy at [address] 01/03/23, completed gastric duodenal stricture dilation and has biopsy results pending. Family also reports pt had barium swallow test on 01/06/23 and aspirated. Pt has been on liquid diet with protein drinks since 01/06/23. Family reports pt has lost total of 14 lbs gradually (3 lbs lost within the last 2 weeks) and started taking Augmentin 875mg per Dr. Little (PCP) yesterday for the aspiration. MD was notified of update by pt's family. . 11:10 Reassessment: Pt to CT . [facility] 11:33 Reassessment: assisted pt with urinal, warm blankets given, family at bedside. iw 12:30 Reassessment: Pt given cup of water per MD. . Neuro: Level of Consciousness is awake, aa5 alert, obeys commands, Oriented to person, place, time, situation. Respiratory: Airway is patent Respiratory effort is even, unlabored, Respiratory pattern is regular, symmetrical. Derm: Skin is dry, Skin is pale, Skin temperature is warm. 13:35 Neuro: Level of Consciousness is awake, alert, obeys commands, Oriented to person, aa5 place, time, situation. Respiratory: Airway is patent Respiratory effort is even, unlabored, Respiratory pattern is regular, symmetrical. Derm: Skin is dry, Skin is pale, Skin temperature is warm. Vital Signs: 09:15 BP 143 / 99; Pulse 72; Resp 16; Temp 98; Pulse Ox 94% ; bp 11:00 BP 130 / 89; Pulse 71; Resp 18 S; Pulse Ox 100% on R/A; aa5 13:00 BP 132 / 84; Pulse 72; Resp 17 S; Temp 97.7(TE); Pulse Ox 100% on R/A; aa5 ED Course: 09:23 Patient arrived in ED. eb 09:23 Arm band placed on. aa5 09:24 Ian Cline DO is Attending Physician. snw 09:31 Maryam Mckeon, RN is Primary Nurse. aa5 09:40 Initial lab(s) drawn, by me, sent to lab. Inserted saline lock: 20 gauge in right aa5 forearm, using aseptic technique. Blood collected. 09:47 Triage completed. bp 09:48 Patient has correct armband on for positive identification. Bed in low position. Call bp light in reach. Side rails up X2. 10:28 No provider procedures requiring assistance completed. aa5 11:17 Abdomen In Process Unspecified. EDMS 12:29 initiated a transfer with Ashly from the [facility] at the request eb of the patients family. 12:52 administrative approval given by Dr. Dominguez Amos / patient has been accepted to [facility] / Dr. Amos has accepted the patient in transfer without conference with Dr. Cline/ report to be called to [phone]. 13:35 Patient transferred, IV remains in place. aa5 Administered Medications: 10:00 Drug: Famotidine IVP 20 mg Route: IVP; Site: right forearm; aa5 10:10 Follow up: Response: No adverse reaction aa5 10:00 Drug: Ondansetron IVP 4 mg Route: IVP; Site: right forearm; aa5 10:10 Follow up: Response: No adverse reaction aa5 13:17 Drug: Lactated Ringers Solution IV 1000 ml Route: IV; Rate: 150 ml/hr; Site: right aa5 forearm; 13:35 Follow up: IV Status: Infusion continued upon transfer aa5 Medication: 09:48 VIS not applicable for this client. bp Outcome: 12:44 ER care complete, transfer ordered by ms3 13:35 Transferred by ground EMS to [facility], Transfer form completed. X-rays sent aa5 w/ patient. Note: Report given to [facility] 13:35 Condition: stable 13:35 Instructed on the need for transfer, Demonstrated understanding of instructions. 13:40 Patient left the ED. aa5 Signatures: Dispatcher [employer] EDMS Carol Hernandez, ROD PLACER-C ROD PLACER-Csnw Aissatou Garcia, SAFIA RN iw Maryam Mckeon RN RN aa5 Campos Woods RN RN Mariana Horowitz Marcus, DO DO ms3 Corrections: (The following items were deleted from the chart) 14:10 13:44 Patient left the ED. aa5 aa5
[2023-01-08 13:06] LABS: SARS-CoV-2 Antigen Rapid Res Negative (Negative)
[2023-01-08] MEDS ORDERED: Ringers Lactate 1,000 ML IV ONE (13:19)
[2023-01-08 14:02] VITALS: TEMP 98
[2023-01-08 14:10] VITALS: O2SAT 96
[2023-01-08 14:12] VITALS: BP 132/98
== END 2023-01-08 13:44 ==
LOC: ER 09:15
DX: E83.52 Hypercalcemia (principal); D64.9 Anemia, unspecified; C79.9 Secondary malignant neoplasm of unspecified site; R10.84 Generalized abdominal pain; Z85.118 Personal history of other malignant neoplasm of bronchus and lung; Z20.822 Contact with and (suspected) exposure to COVID-19
CPT/HCPCS: 85025; 36415; 82565; 83690; 80053; 74176; 87811; J2405; J7120; 96374; 96375; 99285